=== PATIENT | male | born 1955 | race Caucasian/White ===

== ENCOUNTER 2020-12-24 09:58 | Outpatient (CLI) | payer BC, SELFPAY ==
[2020-12-24 10:28] LABS: Hemoglobin 14.2 g/dL (14.0-18.0); Mean Corpuscular Hemoglobin 31.6 pg (26-34); Mean Corpuscular Volume 95.8 fl (80-100); Mean Platelet Volume 8.5 fl (7.4-10.4); Platelet Count Result 318 k/mm3 (150-375); Red Blood Count 4.49 M/mm3 (4.6-6.20); Red Cell Distribution Width 13.9 % (11.5-14.5); White Blood Count 10.8 K/mm3 (4.5-10.0)
[2020-12-24 12:09] LABS: Alanine Aminotransferase 16 U/L (4-50); Albumin Level 4.6 g/dL (3.5-5.1); Alkaline Phosphatase 55 U/L (38-126); Anion Gap 11 mmol/L (8-16); Aspartate Amino Transferase 28 U/L (17-59); Bilirubin,Total 0.5 mg/dL (0.2-1.3); Blood Urea Nitrogen 23 mg/dL (9-20); Calcium 9.5 mg/dL (8.4-10.2); Carbon Dioxide 26 mmol/L (22-30); Chloride 103 mmol/L (98-107); Cholesterol 171 mg/dL (0-200); Estimated Glomerular Filt Rate > 60; Glucose 133 mg/dL (75-110); HDL Direct 69 mg/dL; Potassium 4.9 mmol/L (3.4-5.0); Sodium 140 mmol/L (137-145); Triglycerides 112 mg/dL (<150)
[2020-12-24 12:27] LABS: LDL Cholesterol Direct 80 mg/dL
[2020-12-24 12:41] LABS: Prostate Specific Antigen 1.7 ng/mL (< OR = 4.0)
[2020-12-24 13:57] LABS: Hemoglobin A1C 5.7 % (<5.7)
== END 2020-12-24 09:59 | disposition home or self-care (01) ==
LOC: ANHLAB 10:00
PROVIDERS: PCP Nurse Practitioner Family; Visit Provider Nurse Practitioner Family
DX: Z12.5 Encounter for screening for malignant neoplasm of prostate (principal); E78.5 Hyperlipidemia, unspecified; R73.01 Impaired fasting glucose; I10 Essential (primary) hypertension
CPT/HCPCS: 36415; 80053; 80061; 83036; 84153; 85027; G0103

== ENCOUNTER 2021-01-09 15:50 | Outpatient (CLI) | payer BC, SELFPAY ==
--- NOTE | ~2021-01-09 | US_ITS ---
EXAMINATION: US scrotum doppler DATE: 01/09/2021 16:38 INDICATION: Right scrotal swelling. TECHNIQUE: Grayscale and Doppler ultrasound images of the testes were obtained. COMPARISON: None. FINDINGS: The right testis measures 4.9 x 3.1 x 2.4 cm. The left testis measures 4.8 x 3.2 x 2.4 cm. There is normal vascular flow to both testes. The right epididymis is normal with normal vascular charlie w. The left epididymis contains a 14 mm cyst. There is a large right hydrocele. There is a small left hydrocele. There is no varicocele. IMPRESSION: 1. Large right hydrocele. Small left hydrocele. Reviewed, dictated and finalized at location A. CENTER RN
--- NOTE | ~2021-01-09 | CT_ITS ---
EXAMINATION: CT abdomen pelvis wo/w con DATE: 01/09/2021 17:07 INDICATION: Gross hematuria TECHNIQUE: Computed tomography (CT) of the abdomen and pelvis was performed without and subsequently with 130 cc Omnipaque 350 intravenous contrast. Automated exposure control and iterative reconstructi on technique were employed. Exam dose: 2591.45 mGy-cm total exam DLP. COMPARISON: None. FINDINGS: The lung bases are clear of infiltrate or consolidation. Heart size is mildly enlarged.. There is coronary artery calcification. No pericardial or pleural eff usion. The liver, gallbladder, spleen, pancreas and bile ducts and pancreatic duct appear normal. Normal morphology of the adrenal glands. Nonspecific bilateral perinephric fat stranding. No renal space occupying mass lesion or filling defect of the renal collecting systems or ureters is evident. No filling defect of the bladder lumen is detected. No bladder wall thickening is noted. The noncontrast examination reveals no urinary tract calculus or hydroureteronephrosis. The prostate gland and seminal vesicles appear unremarkable. Normal appendix. There are occasional diverticula of the left colon; no CT evidence of diverticulitis . No bowel obstruction, bowel wall thickening, pneumatosis or pneumoperitoneum. Bilateral fat-containing inguinal hernias. There are large right and smaller left hydroceles. Severe degenerative disc disease throughout the lumbar and lumbosacral spine. Prominent degenerative changes at the apophyseal joints. Prominent degenerative spurring of the lower thoracic spine. IMPRESSION: Diverticulosis of the colon; no CT evidence of diverticulitis Bilateral fat-containing inguinal hernias Bilateral hydroceles Prominent degenerative changes of the thoracic and lumbar spine Reviewed, dictated and finalized at Location A. Reviewed, dictated and finalized at location A. [employer]
== END 2021-01-09 15:51 | disposition home or self-care (01) ==
LOC: ANHIMG 15:51
PROVIDERS: PCP Nurse Practitioner Family; Visit Provider Nurse Practitioner Adult Health
DX: N50.89 Other specified disorders of the male genital organs (principal); N43.3 Hydrocele, unspecified; K57.90 Diverticulosis of intestine, part unspecified, without perforation or abscess without bleeding; K40.20 Bilateral inguinal hernia, without obstruction or gangrene, not specified as recurrent
CPT/HCPCS: 74178; 76870; 93976; Q9967

== ENCOUNTER 2021-04-06 08:16 | Outpatient (CLI) | payer BC, SELFPAY ==
--- NOTE | 2021-04-06 08:30 | ECG_ITS ---
Measurements Intervals [place] Rate: 83 P: 3 MI: 133 QRS: -34 QRSD: 106 T: 7 QT: 349 QTc: 410 Interpretive Statements SINUS RHYTHM VENTRICULAR PREMATURE COMPLEX LEFT AXIS DEVIATION BORDERLINE R WAVE PROGRESSION, ANTERIOR LEADS BORDERLINE T WAVE ABNORMALITY- INFERIOR LEADS BORDERLINE ECG Electronically Signed On 04-06-2021 10:28:49 CDT by Polo Pineda D.O.
[2021-04-06 09:01] LABS: Anion Gap 9 mmol/L (8-16); Blood Urea Nitrogen 19 mg/dL (9-20); Calcium 9.6 mg/dL (8.4-10.2); Carbon Dioxide 26 mmol/L (22-30); Chloride 101 mmol/L (98-107); Estimated Glomerular Filt Rate > 60; Glucose 139 mg/dL (75-110); Potassium 4.1 mmol/L (3.4-5.0); Sodium 136 mmol/L (137-145)
== END 2021-04-06 08:17 | disposition home or self-care (01) ==
LOC: ANHSURGERY 08:20
PROVIDERS: Anesthesiology; PCP Nurse Practitioner Family; Visit Provider Urology
DX: Z01.818 Encounter for other preprocedural examination (principal); I10 Essential (primary) hypertension
CPT/HCPCS: 36415; 80048; 93005

== ENCOUNTER → 2021-04-10 02:04 | Outpatient (CLI) | payer BC, SELFPAY ==
[2021-04-12 13:00] LABS: SARS-CoV-2 RNA PCR Negative
== END ==
PROVIDERS: PCP Nurse Practitioner Family; Visit Provider Urology
DX: Z01.812 Encounter for preprocedural laboratory examination (principal); Z20.822 Contact with and (suspected) exposure to COVID-19
CPT/HCPCS: C9803; U0003; U0005

== ENCOUNTER 2021-04-13 00:13 | Day surgery (SDC) | payer BC, SELFPAY ==
[2021-04-03 14:36] VITALS: BMI 31.4
--- NOTE | 2021-04-10 07:52 | PM.HPGS ---
History of Present Illness History of Present Illness Consent: Risks, benefits, and alternatives have been discussed and questions answered. Patient agrees to proceed with procedure. Chief complaint: hydrocele, gross hematuria Narrative: Luis Armando Palma is a 65 year old male recently referred with an episode of transient scant painless gross hematuria and right scrotal swelling. CT scan and pelvis without contrast showed normal upper urinary tracts. Examination was consistent with a large right hydrocele. After discussion of options he has elected for hydrocelectomy and flexible cystoscopy. He is aware of the risk of this including, but not limited to, scrotal hematoma and recurrent hydrocele formation. Review of Systems Cardiovascular: Cardiovascular: Denies chest pain, Denies lightheadedness, Denies palpitations and Denies dyspnea Respiratory: Respiratory: Denies dyspnea Gastrointestinal: Gastrointestinal: Denies diarrhea, Denies nausea and Denies vomiting Genitourinary: Genitourinary: Denies hematuria and Denies dysuria Endocrine: Endocrine: Denies palpitations PMFSH Past Medical History Medical History Essential (primary) hypertension Mixed hyperlipidemia Normal colonoscopy (~04/24/18) Dr Hill, no polyps. Repeat in 10 yrs. Surgical History Surgical History History of knee replacement (~11/2017) Social History Social History Smoking status: Never smoker Alcohol intake: current Drinks per week: 12 Spiritual care concerns: No Meds Home Medications and Allergies Home Medications Medication Instructions Recorded Confirmed Type ascorbate calcium (vitamin C) 500 500 mg PO DAILY 03/03/20 04/03/21 History mg tablet aspirin 81 mg tablet,delayed 81 mg PO DAILY 03/03/20 04/03/21 History release multivit,Ca,min-iron 8 mg-folic 1 tablet PO .QD tablet 03/03/20 04/03/21 History acid 200 mcg-lycopene 600 mcg tablet potassium gluconate 595 mg (99 mg) 595 mg PO DAILY 03/03/20 04/03/21 History tablet vitamin B comp with C no.4 150 mg 1 tablet PO .QD tablet 03/03/20 04/03/21 History tablet vitamin B12 500 mcg-folic acid 400 1 tablet PO DAILY 03/03/20 04/03/21 History mcg tablet simvastatin 20 mg tablet See Rx Instructions .ROUTE 01/23/21 04/03/21 Rx .COMPLEX #30 tablet lisinopril 20 See Rx Instructions .ROUTE 03/27/21 04/03/21 Rx mg-hydrochlorothiazide 25 mg tablet .COMPLEX #90 tablet Allergies Allergy/AdvReac Type Severity Reaction Status Date / Time No Known Allergies Allergy Unverified 04/03/21 14:14 Exam Const: General: no acute distress Resp: Effort & Inspection: normal respiratory effort GI: Inspection: non-distended GI Palp: No abdominal tenderness and No Guarding due to palpation present (GI) Auscultation: normal bowel sounds : Scrotum: Hydrocele present (right) Assessment and Plan Assessment and plan (1) Hydrocele, right: Code(s): N43.3 - Hydrocele, unspecified Status: Acute (2) Hematuria: Qualifiers: Hematuria type: unspecified type Qualified Code(s): R31.9 - Hematuria, unspecified Code(s): R31.9 - Hematuria, unspecified Status: Acute Assessment and Plan: Flexible cystoscopy and right hydrocelectomy
--- NOTE | 2021-04-13 06:10 | WPDHPUPDATE1 ---
History and Physical Update Update Date/Time: 04/13/21 06:10 History and Physical has been reviewed, including an updated exam of the patient. There are NO changes in the patient's condition. Risks, benefits, and alternatives have been discussed and questions answered. Patient agrees to proceed with procedure.
[2021-04-13 09:19] VITALS: BP 164/85; PULSE 116; RESP 20; TEMP 36.1; O2SAT 96
[2021-04-13] MEDS: LACTATED RINGERS 1,000 ML 30 ML IV CONT (09:30)
--- NOTE | 2021-04-13 09:49 | P.PNAN_ITS ---
Anes - Initial Pre Proc Eval Procedure: Operation Date: 04/13/21 11:30 Proposed Procedures p Right Hydrocelectomy, - Wellington Ernst MD s Flexible Cystoscopy - Wellington Ernst MD Date/Time: 04/13/21 09:49 Surgeon: Wellington Ernst MD Pre Op Diagnosis: hydrocele, gross hematuria Patient Data Age: 65 Gender: M Height: 5 ft 7 in Weight: 94 kg Last Vital Signs Temp 97.0 F L 04/13/21 09:19 Pulse 116 H 04/13/21 09:19 Resp 20 04/13/21 09:19 BP 164/85 H 04/13/21 09:19 Pulse Ox 96 04/13/21 09:19 Allergies Allergy/AdvReac Type Severity Reaction Status Date / Time No Known Allergies Allergy Unverified 04/13/21 09:15 Home Medications Medication Instructions Recorded Confirmed Type ascorbate calcium (vitamin C) 500 500 mg PO DAILY 03/03/20 04/13/21 History mg tablet aspirin 81 mg tablet,delayed 81 mg PO DAILY 03/03/20 04/13/21 History release multivit,Ca,min-iron 8 mg-folic 1 tablet PO .QD tablet 03/03/20 04/13/21 History acid 200 mcg-lycopene 600 mcg tablet potassium gluconate 595 mg (99 mg) 595 mg PO DAILY 03/03/20 04/13/21 History tablet vitamin B comp with C no.4 150 mg 1 tablet PO .QD tablet 03/03/20 04/13/21 History tablet vitamin B12 500 mcg-folic acid 400 1 tablet PO DAILY 03/03/20 04/13/21 History mcg tablet simvastatin 20 mg tablet See Rx Instructions .ROUTE 01/23/21 04/13/21 Rx .COMPLEX #30 tablet lisinopril 20 See Rx Instructions .ROUTE 03/27/21 04/13/21 Rx mg-hydrochlorothiazide 25 mg tablet .COMPLEX #90 tablet Patient hx anesthesia problems: none Family hx anesthesia problems: none PMFSH Past Medical History Medical History Essential (primary) hypertension Mixed hyperlipidemia Normal colonoscopy (~04/24/18) Dr Hill, no polyps. Repeat in 10 yrs. Surgical History Surgical History (Updated 04/10/21 @ 08:51 by Luzmaria Duran NP) History of knee replacement (~11/2017) Hx of cystoscopy (~03/2021) Social History Social History Smoking status: Never smoker Alcohol intake: current Drinks per week: 12 Alcohol use details: beers Living arrangements: alone Spiritual care concerns: No Anes - Eval Final PreProcedure Day of Procedure 04/13/21 09:49 Patient weight: obese Heart: regular rate and rhythm Lungs: clear to auscultation Airway: Mallampati scale class III (poor dentition; states none are loose) Neurological: alert and oriented Last oral intake: >/= 8 hours ASA classification: III Emergent: no Anesthetic plan: proceed Anesthesia type and monitoring: general LMA and standard monitoring Informed Consent: The patient's anesthetic plan and its attendant risks and benefits were discussed with the patient/family/POA. Questions were solicited an d answers provided to the satisfaction of the patient/family/POA.
[2021-04-13] MEDS: ceFAZolin 2 GM/D5W 50 ML 2 GM/50 ML BAG IVPB (10:18)
[2021-04-13] MEDS: LIDO 1%/EPINEPHRINE 1:100,000 50 ML VIAL INFILTRATE (10:54)
[2021-04-13] MEDS: LIDOCAINE HCL 2% GEL UROJET 10 ML PKG MUCOUS MEM (10:54)
--- NOTE | 2021-04-13 11:01 | P.OP_ITS ---
Procedure Note - Detailed Date of procedure: 04/13/21 Pre-op diagnosis: Right hydrocele, gross hematuria Post-op diagnosis: same Procedure performed: 1. Right hydrocelectomy 2. Cystoscopy with urethral dilatation Description of procedure: The patient was brought to the operative suite where he was prepped and draped in routine sterile fashion while in a supine position after the uneventful induction of a general LMA anesthetic. An incision was made in the median raphe of the scrotum and dissection was carried into the right tunica vaginalis. Clear, straw-colored fluid was drained. The testicle was examined and found to be both visibly and palpably normal. The tunica was everted in a bottle-neck fashion using a running 4-0 chromic. The testicle was restore returned to an orthotopic positioned. The dartos muscle was closed wi th a running 4-0 chromic and the skin was likewise closed with a running 4-0 chromic. flexible cystoscopy was then undertaken with a 16 F flexible cystoscope. He has wide caliber stricture in the fossa navicularis and a 2nd, slightly more constricting stricture in the bulbous urethra. The bladder shows trabeculation. There is minimal lateral lobe hyperplasia of the prostate without a median lobe. Bladder mucosa without hyperemia. There is no intravesical foreign body or neoplasm. I dilated the urethra from 14-26 F with Josefina sounds. Estimated blood loss throughout this procedure was <10cccc . Patient tolerated the procedure well and was taken to the recovery room in good condition. Anesthesia: GLMA Surgeon: Wellington Ernst MD Commercial Driver'S License Driver: ELIUD Nevarez Estimated blood loss (mL): 5 Drains: No Packing: No Pathology: none sent Complications: No immediate complications Condition: stable Disposition: PACU
[2021-04-13 11:05] VITALS: BP 144/81; PULSE 97; RESP 16; TEMP 36.1; O2SAT 100
[2021-04-13 11:20] VITALS: BP 145/82; PULSE 95; RESP 17; O2SAT 97
[2021-04-13 11:35] VITALS: BP 140/80; PULSE 88; RESP 20; O2SAT 96
[2021-04-13 11:38] VITALS: BP 173/91; PULSE 91; RESP 20
[2021-04-13 12:20] VITALS: BP 153/92; PULSE 78; RESP 20
== END 2021-04-13 12:49 | disposition home or self-care (01) ==
PROVIDERS: PCP Nurse Practitioner Family; Visit Provider Urology
PROC: (CPT 55040; principal; 2021-04-13 11:30)
PROC: 0TJB8ZZ Inspection of Bladder, Via Natural or Artificial Opening Endoscopic (ICD-10-PCS; CPT 52000; 2021-04-13 11:30)
DX: N43.3 Hydrocele, unspecified (principal); N35.912 Unspecified bulbous urethral stricture, male; R31.0 Gross hematuria; N32.89 Other specified disorders of bladder; I10 Essential (primary) hypertension; E78.2 Mixed hyperlipidemia; E66.9 Obesity, unspecified; Z68.32 Body mass index [BMI] 32.0-32.9, adult
CPT/HCPCS: 55060; 52281; A9270; J0690; J1100; J2250; J2405; J2704; J3010; J7120

== ENCOUNTER 2021-09-11 11:07 | Outpatient (CLI) | payer MEDICARE, SELFPAY ==
[2021-09-11 11:49] LABS: Anion Gap 11 mmol/L (8-16); Blood Urea Nitrogen 21 mg/dL (9-20); Calcium 9.6 mg/dL (8.4-10.2); Carbon Dioxide 26 mmol/L (22-30); Chloride 100 mmol/L (98-107); Estimated Glomerular Filt Rate > 60; Glucose 128 mg/dL (65-110); Potassium 4.4 mmol/L (3.4-5.0); Sodium 137 mmol/L (137-145)
== END 2021-09-11 11:08 | disposition home or self-care (01) ==
LOC: ANHSURGERY 11:12
PROVIDERS: Anesthesiology; PCP Family Medicine; Visit Provider Urology
DX: Z01.818 Encounter for other preprocedural examination (principal); Z79.899 Other long term (current) drug therapy
CPT/HCPCS: 36415; 80048

== ENCOUNTER 2021-09-14 00:25 | Day surgery (SDC) | payer MEDICARE, SELFPAY ==
[2021-09-11 09:33] VITALS: BMI 31.7
[2021-09-14 06:10] VITALS: BP 160/85; PULSE 96; RESP 16; TEMP 37; O2SAT 99
[2021-09-14] MEDS: LACTATED RINGERS 1,000 ML 30 ML IV CONT (06:36)
--- NOTE | 2021-09-14 06:43 | WPDHPUPDATE1 ---
History and Physical Update Update Date/Time: 09/14/21 06:43 History and Physical has been reviewed, including an updated exam of the patient. There are NO changes in the patient's condition. Risks, benefits, and alternatives have been discussed and questions answered. Patient agrees to proceed with procedure.
--- NOTE | 2021-09-14 07:14 | P.PNAN_ITS ---
Anes - Initial Pre Proc Eval Procedure: Operation Date: 09/14/21 07:30 Proposed Procedures p Right Hydrocelectomy - Wellington Ernst MD Date/Time: 09/14/21 07:14 Surgeon: Wellington Ernst MD Pre Op Diagnosis: right hydrocele Patient Data Age: 66 Gender: M Height: 1.7 m Weight: 96.5 kg Last Vital Signs Temp 98.6 F 09/14/21 06:10 Pulse 96 09/14/21 06:10 Resp 16 09/14/21 06:10 BP 160/85 H 09/14/21 06:10 Pulse Ox 99 09/14/21 06:10 Allergies Allergy/AdvReac Type Severity Reaction Status Date / Time No Known Allergies Allergy Unverified 09/14/21 06:28 Home Medications Medication Instructions Recorded Confirmed Type ascorbate calcium (vitamin C) 500 500 mg PO DAILY 03/03/20 09/14/21 History mg tablet aspirin 81 mg tablet,delayed 81 mg PO DAILY 03/03/20 09/14/21 History release multivit,Ca,min-iron 8 mg-folic 1 tablet PO .QD tablet 03/03/20 09/14/21 History acid 200 mcg-lycopene 600 mcg tablet potassium gluconate 595 mg (99 mg) 595 mg PO DAILY 03/03/20 09/14/21 History tablet vitamin B comp with C no.4 150 mg 1 tablet PO .QD tablet 03/03/20 09/14/21 History tablet vitamin B12 500 mcg-folic acid 400 1 tablet PO DAILY 03/03/20 09/14/21 History mcg tablet simvastatin 20 mg tablet See Rx Instructions .ROUTE 05/29/21 09/14/21 Rx .COMPLEX #90 tablet lisinopril 20 1 tablet PO DAILY #90 tablet 06/19/21 09/14/21 Rx mg-hydrochlorothiazide 25 mg tablet Patient hx anesthesia problems: none Family hx anesthesia problems: none Results Review: All pre-operative results and documents have been reviewed as part of the pre-operative evaluation. [facility] Past Medical History Medical History Essential (primary) hypertension Mixed hyperlipidemia Normal colonoscopy (~04/24/18) Dr Hill, no polyps. Repeat in 10 yrs. Surgical History Surgical History (Updated 04/10/21 @ 08:51 by Luzmaria Duran NP) History of knee replacement (~11/2017) Hx of cystoscopy (~03/2021) Social History Social History Smoking status: Never smoker Second hand tobacco smoke exposure: No Alcohol intake: current Drinks per week: 12 Alcohol use details: beers Substance use: never Substance use type: does not use Living arrangements: alone Spiritual care concerns: No Anes - Eval Final PreProcedure Day of Procedure 09/14/21 07:14 Patient weight: obese Heart: regular rate and rhythm Lungs: clear to auscultation Airway: Mallampati scale class III Neurological: alert and oriented Last oral intake: >/= 8 hours ASA classification: III Emergent: no Anesthetic plan: proceed Anesthesia type and monitoring: general LMA and standard monitoring Results Review: All pre-operative results and documents have been reviewed as part of the pre-operative evaluation. Informed Consent: The patient's anesthetic plan and its attendant risks and benefits were discussed with the patient/family/POA. Questions were solicited and answers provided to the satisfaction of the patient/family/POA.
[2021-09-14] MEDS: ceFAZolin 2 GM/D5W 50 ML 2 GM/50 ML BAG IVPB (07:30)
--- NOTE | 2021-09-14 08:11 | W.PM.PROC2 ---
Procedure Note - Detailed Date of Procedure 09/14/21 Pre-op Diagnosis Recurrent right hydrocele Post-op Diagnosis same Procedure Performed Right hydrocelectomy Surgeon Wellington Ernst MD Anesthesia general Description of Procedure Patient brought to the office reveals prepped draped in routine sterile fashion while in the supine position. An incision is made in the median raphe of the scrotum are and dissection is carried into the right hemiscrotum. A large hemorrhagic fluid collection use drain. Right testicle was inspected and found to be inflamed but otherwise normal without palpable masses. I was able to open the tunica vaginalis widely but there was not enough to sherry in a bottle neck fashion. Copiously irrigated the right hemiscrotum in close the dartos with a running 3-0 chromic. Skin was likewise closed with a running 3-0 chromic. Patient was taken recovery room good condition. Estimated Blood Loss 0 Drains No Packing No Pathology none sent Complications No immediate complications Condition stable Disposition PACU
[2021-09-14] MEDS: LIDO 1%/EPINEPHRINE 1:100,000 50 ML VIAL 10 ML INFILTRATE (08:13)
[2021-09-14 08:25] VITALS: BP 152/83; PULSE 100; RESP 16; TEMP 36.8; O2SAT 100
[2021-09-14 08:40] VITALS: BP 158/78; PULSE 94; RESP 18; O2SAT 96
[2021-09-14 08:50] VITALS: BP 155/76; PULSE 89; RESP 16
== END 2021-09-14 09:35 | disposition home or self-care (01) ==
PROVIDERS: PCP Family Medicine; Visit Provider Urology
PROC: (CPT 55040; principal; 2021-09-14 07:30)
DX: N43.3 Hydrocele, unspecified (principal); I10 Essential (primary) hypertension; E78.5 Hyperlipidemia, unspecified; Z96.659 Presence of unspecified artificial knee joint
CPT/HCPCS: 55040; J0690; J1100; J2250; J2405; J2704; J3010; J7120

== ENCOUNTER 2023-01-05 09:46 | Outpatient (CLI) | payer MEDICARE, SELFPAY ==
[2023-01-05 10:08] LABS: Basophils Percent Auto 0.2 % (0.2-1.2); Eosinophils Absolute Auto 0.3 K/mm3 (0-0.3); Eosinophils Percent Auto 2.3 % (0-4.4); Hematocrit 44.1 % (42.0-52.0); Hemoglobin 14.7 g/dL (14.0-18.0); Immature Granulocyte Absolute 0.04 K/mm3 (0.00-0.031); Immature Granulocyte Percent A 0.4 % (0-0.5); Lymphocytes Absolute Auto 2.58 K/mm3 (0.9-3.2); Lymphocytes Percent Auto 23.3 % (18.3-44.2); Mean Corpuscular HGB Conc 33.3 g/dl (32-36); Mean Corpuscular Hemoglobin 32.2 pg (26-34); Mean Corpuscular Volume 96.5 fl (80-100); Mean Platelet Volume 8.6 fl (7.4-10.4); Monocytes Absolute Auto 0.6 K/mm3 (0.1-0.6); Monocytes Percent Auto 5.8 % (2.6-8.5); Neutrophils Absolute Auto 7.6 K/mm3 (1.3-6.7); Platelet Count Result 287 k/mm3 (150-375); Red Blood Count 4.57 M/mm3 (4.6-6.20); Red Cell Distribution Width 13.2 % (11.5-14.5); White Blood Count 11.1 K/mm3 (4.5-10.0)
[2023-01-05 10:16] LABS: Alanine Aminotransferase 20 U/L (6-50); Albumin Level 4.6 g/dL (3.5-5.1); Alkaline Phosphatase 60 U/L (38-126); Anion Gap 7 mmol/L (8-16); Aspartate Amino Transferase 23 U/L (17-59); Bilirubin,Total 0.4 mg/dL (0.2-1.3); Blood Urea Nitrogen 26 mg/dL (9-20); Calcium 9.2 mg/dL (8.4-10.2); Carbon Dioxide 24 mmol/L (22-30); Chloride 102 mmol/L (98-107); Cholesterol 197 mg/dL (0-200); Estimated Glomerular Filt Rate > 60; Glucose 140 mg/dL (65-110); HDL Direct 74 mg/dL; Potassium 4.4 mmol/L (3.4-5.0); Sodium 133 mmol/L (137-145); Triglycerides 167 mg/dL (<150)
[2023-01-05 10:27] LABS: LDL Cholesterol Direct 80 mg/dL
[2023-01-05 10:32] LABS: Hemoglobin A1C 5.8 % (<5.7)
== END 2023-01-05 09:47 | disposition home or self-care (01) ==
PROVIDERS: PCP Family Medicine; Visit Provider Nurse Practitioner
DX: E78.5 Hyperlipidemia, unspecified (principal); R73.03 Prediabetes; I10 Essential (primary) hypertension
CPT/HCPCS: 36415; 80053; 80061; 83036; 85025

== ENCOUNTER 2024-03-09 09:38 | Outpatient (CLI) | payer MEDICARE, SELFPAY ==
[2024-03-09 10:29] LABS: Basophils Percent Auto 0.3 % (0.2-1.2); Eosinophils Absolute Auto 0.2 K/mm3 (0-0.3); Eosinophils Percent Auto 1.7 % (0-4.4); Hematocrit 44.8 % (42.0-52.0); Hemoglobin 14.7 g/dL (14.0-18.0); Immature Granulocyte Absolute 0.03 K/mm3 (0.00-0.031); Immature Granulocyte Percent A 0.3 % (0-0.5); Lymphocytes Absolute Auto 2.37 K/mm3 (0.9-3.2); Lymphocytes Percent Auto 25.3 % (18.3-44.2); Mean Corpuscular HGB Conc 32.8 g/dl (32-36); Mean Corpuscular Hemoglobin 30.5 pg (26-34); Mean Corpuscular Volume 92.9 fl (80-100); Mean Platelet Volume 8.7 fl (7.4-10.4); Monocytes Absolute Auto 0.6 K/mm3 (0.1-0.6); Monocytes Percent Auto 5.9 % (2.6-8.5); Neutrophils Absolute Auto 6.2 K/mm3 (1.3-6.7); Neutrophils Percent Auto 66.5 % (45.5-73.1); Platelet Count Result 319 k/mm3 (150-375); Red Blood Count 4.82 M/mm3 (4.6-6.20); Red Cell Distribution Width 14.5 % (11.5-14.5); White Blood Count 9.4 K/mm3 (4.5-10.0)
[2024-03-09 10:48] LABS: Alanine Aminotransferase 16 U/L (6-50); Albumin Level 4.7 g/dL (3.5-5.1); Alkaline Phosphatase 73 U/L (38-126); Anion Gap 9 mmol/L (4-12); Aspartate Amino Transferase 26 U/L (17-59); Bilirubin,Total 0.5 mg/dL (0.2-1.3); Blood Urea Nitrogen 23 mg/dL (9-20); Calcium 9.9 mg/dL (8.4-10.2); Carbon Dioxide 23 mmol/L (22-30); Chloride 105 mmol/L (98-107); Cholesterol 206 mg/dL (0-200); Estimated Glomerular Filt Rate > 60; Glucose 124 mg/dL (65-110); HDL Direct 70 mg/dL; Potassium 4.2 mmol/L (3.4-5.0); Sodium 137 mmol/L (137-145); Triglycerides 277 mg/dL (<150)
[2024-03-09 10:59] LABS: LDL Cholesterol Direct 101 mg/dL
[2024-03-12 12:52] LABS: Vitamin D 1,25 (OH)2 Total 26 pg/mL (18-72); Vitamin D2 1,25 (OH)2 <8 pg/mL; Vitamin D3 1,25 (OH)2 26 pg/mL
== END 2024-03-09 09:39 | disposition home or self-care (01) ==
LOC: ANHLAB 09:42
PROVIDERS: PCP Family Medicine; Visit Provider Nurse Practitioner Family
DX: E55.9 Vitamin D deficiency, unspecified (principal); I10 Essential (primary) hypertension
CPT/HCPCS: 36415; 80053; 80061; 82652; 84443; 85025

== ENCOUNTER 2024-10-05 09:10 | Emergency (ER) | payer MEDICARE, SELFPAY ==
--- NOTE | ~2024-10-05 | CT_ITS ---
CLINICAL INDICATION: Lower abdominal pain COMPARISON: 01/07 TECHNIQUE: Multiple contiguous axial images of the abdomen and pelvis were performed following the ad ministration of with 100 mL Omnipaque-350 intravenous contrast The dose-length product (DLP) was 641.66 mGy-cm. Automated exposure control and iterative reconstruction technique were employed. FINDINGS/OBSERVATIONS: Visualized lower thorax: The bilateral lung bases are clear. The heart is of normal size, without pericardial effusion. Small hiatal hernia is present. Liver: The liver enhances homogeneously and is not enlarged. Gallbladder and biliary system: The gallbladder is minimally distended, and otherwise unremarkable. Pancreas: The pancreas enhances homogeneously without ductal dilatation. Spleen: The spleen enhances homogeneously and is not enlarged measuring 6cm in longitudinal dimension. Kidneys: The bilateral kidneys enhance symmetrically without hydronephrosis or renal calculi. Adrenal glands: Unremarkable. Gastrointestinal tract: Mural thickening within the sigmoid colon with multiple diverticula and surrounding inflammatory barton ge, findings suggesting acute/early diverticulitis for which clinical correlation is needed. Appendix: The air-filled appendix is of normal caliber (axial series, image 131) Vasculature: Calcified atherosclerotic disease without aneurysmal dilatation. Lymph nodes: No pathologically enlarged or morphologically suspicious lymph nodes within the retroperitoneum or at the root of the mesentery. Pelvic structures: The bladder is distended, and otherwise unremarkable. The prostate gland is not enlarged. Body wall and musculoskeletal: Small fat-containing umbilical hernia. Degenerative disease within the lower lumbar spine, at the level of L1/L2, L2/L3, L3/L4 and L4/L5. Os teophyte formation and disc space narrowing is present with moderate facet hypertrophy IMPRESSION: Findings consistent with acute/early diverticulitis of the sigmoid colon without drainable fluid aleisha ection or gross perforation. Reviewed, dictated and finalized at location A. [employer] [employer] IMPRESSION: Findings consistent with acute/early diverticulitis of the sigmoid colon withou t drainable fluid collection or gross perforation.
[2024-10-05 09:12] VITALS: BP 124/74; PULSE 108; RESP 17; TEMP 36.4; O2SAT 98
[2024-10-05 10:37] VITALS: BP 142/81; PULSE 111; RESP 18; O2SAT 99
[2024-10-05 10:52] LABS: Basophils Absolute Auto 0.1 K/mm3 (0.0-0.1); Basophils Percent Auto 0.2 % (0.2-1.2); Eosinophils Percent Auto 0.1 % (0-4.4); Hematocrit 37.8 % (42.0-52.0); Hemoglobin 12.3 g/dL (14.0-18.0); Immature Granulocyte Percent A 0.5 % (0-0.5); Lymphocytes Absolute Auto 2.79 K/mm3 (0.9-3.2); Lymphocytes Percent Auto 13.8 % (18.3-44.2); Mean Corpuscular HGB Conc 32.5 g/dl (32-36); Mean Corpuscular Hemoglobin 30.5 pg (26-34); Mean Corpuscular Volume 93.8 fl (80-100); Mean Platelet Volume 8.6 fl (7.4-10.4); Monocytes Absolute Auto 0.7 K/mm3 (0.1-0.6); Monocytes Percent Auto 3.4 % (2.6-8.5); Neutrophils Absolute Auto 16.6 K/mm3 (1.3-6.7); Platelet Count Result 678 k/mm3 (150-375); Red Blood Count 4.03 M/mm3 (4.6-6.20); Red Cell Distribution Width 12.7 % (11.5-14.5); White Blood Count 20.2 K/mm3 (4.5-10.0)
--- NOTE | 2024-10-05 11:07 | ED_ITS ---
HPI - Abdominal Pain General Chief Complaint: Abdominal Pain Stated Complaint: abdominal pain Time Seen by Provider: 10/05/24 10:33 Source: patient Mode of arrival: ambulatory Limitations: no limitations History of Present Illness HPI narrative: Patient is a 69-year-old male who presents the ED with report of lower abdominal pain. Patient reports intermittent issues with abdominal discomfort. He is on chronic antibiotic therapy for a previous complicated left shoulder infection and has had intermittent discomfort since being on this. States he was also started on amoxicillin and hydrocodone last week for a dental issue and this caused him some further stomach irritation. He then reports having worsen ing pain in his lower abdomen since yesterday afternoon. has been taking tramadol for a separate right shoulder issue but denies improvement of pain with this. Reports the feeling of constipation, states he is able to have a small bowel movement this morning. prior bowel movement was 3-4 days ago. Denies nausea, vomiting, urinary complaints, fevers. Related Data Home Medications Medication Instructions Recorded Confirmed ascorbate calcium (vitamin C) 500 500 mg PO DAILY 03/03/20 06/25/24 mg tablet aspirin 81 mg tablet,delayed 81 mg PO DAILY 03/03/20 06/25/24 release (Adult Low Dose Aspirin) multivit,Ca,min-iron 8 mg-folic 1 tablet PO .QD 03/03/20 06/25/24 acid 200 mcg-lycopene 600 mcg tablet (Centrum Men) potassium gluconate 595 mg (99 mg) 595 mg PO DAILY 03/03/20 06/25/24 tablet vitamin B comp with C no.4 150 mg 1 tablet PO .QD 03/03/20 06/25/24 tablet vitamin B12 500 mcg-folic acid 400 1 tablet PO DAILY 03/03/20 06/25/24 mcg tablet Allergies Allergy/AdvReac Type Severity Reaction Status Date / Time No Known Allergies Allergy Verified 10/05/24 09:17 Review of Systems Review of Systems: All systems reviewed & are unremarkable except as noted in HPI. All systems reviewed & are unremarkable except as noted in HPI and below PMFSH Past Medical History Medical History Essential (primary) hypertension Hydrocele, right Mixed hyperlipidemia Normal colonoscopy (~04/24/18) Dr Hill, no polyps. Repeat in 10 yrs. Shoulder pain Surgical History Surgical History H/O shoulder surgery History of knee replacement (~11/2017) Hx of cystoscopy (~03/2021) Social History Social History Social History: Single, lives alone. 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 HEAD: Normocephalic, atraumatic. RESPIRATORY: Airway patent, respirations nonlabored. Clear to auscultation bilaterally, no rales, rhonchi, wheezing. CARDIOVASCULAR: Tachycardic with regular rhythm without murmurs, rubs, or gallops. ABDOMINAL: Soft, diffuse tenderness throughout abdomen, worse throughout lower abdomen/periumbilical region. Mildly hypoactive BS. MUSCULOSKELETAL: Moves all extremities. No gross deformities. SKIN: Warm, dry, normal color. NEURO: A&O X3. Speech clear. Cranial nerves II-XII grossly intact. Steady gait. No ataxic movements. PSYCHIATRIC: Appropriate mood and affect. Normal interaction. Course Vital Signs Vital signs: Vital Signs Temperature 97.5 F L 10/05/24 09:12 Pulse Rate 108 H 10/05/24 09:12 Respiratory Rate 17 10/05/24 09:12 Blood Pressure 124/74 10/05/24 09:12 Pulse Oximetry 98 10/05/24 09:12 Oxygen Delivery Room Air 10/05/24 09:12 Temperature 97.7 F 10/05/24 14:36 Pulse Rate 89 10/05/24 14:36 Respiratory Rate 16 10/05/24 14:36 Blood Pressure 132/78 10/05/24 14:36 Pulse Oximetry 99 10/05/24 14:36 Oxygen Delivery Room Air 10/05/24 09:12 MDM - Abdominal Pain MDM Narrative Medical decision making narrative: patient presented to ED with lower abdominal pain, sensation of constipation. Patient tachycardic upon arrival. Afebrile. In no acute distress. CBC with white blood cell count of 20.0. Neutrophil predominance. No bandemia. Possible hemoconcentration. Fluids ongoing. CMP unremarkable. UA without signs of infection. Does show 1+ ketones. Patient given fluids in the ED. CT scan of abdomen/ pelvis was obtained and showing early/acute diverticulitis. No perf or abscess. Discussed lab and imaging findings with patient. He is feeling better with supportive therapy. Given leukocytosis, did feel potentially reasonable to admi t for IV antibiotics. Discussed discharge home with antibiotics versus admission. Utilize shared decision-making with patient. Patient would prefer to go home. Feel this is reasonable. His vital signs are stable. Tachycardia has resolved after fluids. Afebrile here. He is not meeting sepsis criteria at this time. Will discharge on Cipro / Flagyl. Patient has pain medication at home. Recommended close follow-up with PCP for further evaluation. Discussed very strict return precautions. He is in agreement with plan and feels comfortable going home. Discharged in stable condition. Medical Records Attestation: I reviewed the patient's medical records. Lab Data Attestation: I reviewed the patient's lab results. 10/05/24 10:37 10/05/24 13:40 Labs: Lab Results 10/05/24 10/05/24 10/05/24 Range/Units 10:36 10:37 13:30 WBC 20.2 H (4.5-10.0) K/mm3 RBC 4.03 L (4.6-6.20) M/mm3 Hgb 12.3 L (14.0-18.0) g/dL Hct 37.8 L (42.0-52.0) % MCV 93.8 (80-100) fl MCH 30.5 (26-34) pg MCHC 32.5 (32-36) g/dl RDW 12.7 (11.5-14.5) % Plt Count 678 H D (150-375) k/mm3 MPV 8.6 (7.4-10.4) fl Immature Gran % (Auto) 0.5 (0-0.5) % Neut % (Auto) 82.0 H (45.5-73.1) % Lymph % (Auto) 13.8 L (18.3-44.2) % Carlton % (Auto) 3.4 (2.6-8.5) % Eos % (Auto) 0.1 (0-4.4) % Baso % (Auto) 0.2 (0.2-1.2) % Lymph # (Auto) 2.79 (0.9-3.2) K/mm3 Carlton # (Auto) 0.7 H (0.1-0.6) K/mm3 Eos # (Auto) 0.0 (0-0.3) K/mm3 Baso # (Auto) 0.1 (0.0-0.1) K/mm3 Abs Immat Gran (auto) 0.10 H (0.00-0.031) K/mm3 Absolute Neuts (auto) 16.6 H (1.3-6.7) K/mm3 Absolute Nucleated RBC 0.000 (0.0-0.012) K/mm3 Nucleated RBC % 0.0 (0.0-0.2) % Sodium 139 (137-145) mmol/L Potassium 4.0 (3.4-5.0) mmol/L Chloride 104 (98-107) mmol/L Carbon Dioxide 23 (22-30) mmol/L Anion Gap 12 (4-12) mmol/L BUN 30 H (9-20) mg/dL Creatinine 0.90 (0.7-1.3) mg/dL Estim Creat Clear Calc 71 ml/min Estimated GFR > 60 (59 - ) Glucose 111 H (65-110) mg/dL Calcium 9.2 (8.4-10.2) mg/dL Total Bilirubin 0.3 (0.2-1.3) mg/dL AST 28 (17-59) U/L ALT 16 (6-50) U/L Alkaline Phosphatase 75 (38-126) U/L Total Protein 8.0 (6.3-8.2) g/dL Albumin 3.9 (3.5-5.1) g/dL Lipase 130 (23-300) U/L Urine Color Yellow (Yellow) Urine Appearance Cloudy H (Clear) Urine pH 5.0 (5.0-9.0) Ur Specific [place] 1.026 (1.001-1.035) Urine Protein Trace (Negative) mg/dL Urine Glucose (UA) Negative (Negative) mg/dL Urine Ketones 1+ H (Negative) mg/dL Ur Blood (Man) Negative (Negative) Urine Nitrate Negative (Negative) Urine Bilirubin Negative (Negative) Urine Urobilinogen 0.2 (<2.0) mg/dL Add Ur Microanalysis Reviewed Leukocyte Esterase Rfl Negative (Negative) NONA/UL Urine RBC 0-2 (0-2) /hpf Urine WBC 0-5 (0-3) /hpf Ur Squamous Epith Cells Occasional (Few) /hpf Urine Bacteria None seen /hpf Urine Casts >20 Hyaline Casts Present (None) /lpf 10/05/24 Range/Units 13:40 WBC (4.5-10.0) K/mm3 RBC (4.6-6.20) M/mm3 Hgb (14.0-18.0) g/dL Hct (42.0-52.0) % MCV (80-100) fl MCH (26-34) pg MCHC (32-36) g/dl RDW (11.5-14.5) % Plt Count (150-375) k/mm3 MPV (7.4-10.4) fl Immature Gran % (Auto) (0-0.5) % Neut % (Auto) (45.5-73.1) % Lymph % (Auto) (18.3-44.2) % Carlton % (Auto) (2.6-8.5) % Eos % (Auto) (0-4.4) % Baso % (Auto) (0.2-1.2) % Lymph # (Auto) (0.9-3.2) K/mm3 Carlton # (Auto) (0.1-0.6) K/mm3 Eos # (Auto) (0-0.3) K/mm3 Baso # (Auto) (0.0-0.1) K/mm3 Abs Immat Gran (auto) (0.00-0.031) K/mm3 Absolute Neuts (auto) (1.3-6.7) K/mm3 Absolute Nucleated RBC (0.0-0.012) K/mm3 Nucleated RBC % (0.0-0.2) % Sodium (137-145) mmol/L Potassium (3.4-5.0) mmol/L Chloride (98-107) mmol/L Carbon Dioxide (22-30) mmol/L Anion Gap (4-12) mmol/L BUN (9-20) mg/dL Creatinine 1.00 (0.7-1.3) mg/dL Estim Creat Clear Calc 64 ml/min Estimated GFR > 60 (59 - ) Glucose (65-110) mg/dL Calcium (8.4-10.2) mg/dL Total Bilirubin (0.2-1.3) mg/dL AST (17-59) U/L ALT (6-50) U/L Alkaline Phosphatase (38-126) U/L Total Protein (6.3-8.2) g/dL Albumin (3.5-5.1) g/dL Lipase (23-300) U/L Urine Color (Yellow) Urine Appearance (Clear) Urine pH (5.0-9.0) Ur Specific [place] (1.001-1.035) Urine Protein (Negative) mg/dL Urine Glucose (UA) (Negative) mg/dL Urine Ketones (Negative) mg/dL Ur Blood (Man) (Negative) Urine Nitrate (Negative) Urine Bilirubin (Negative) Urine Urobilinogen (<2.0) mg/dL Add Ur Microanalysis Leukocyte Esterase Rfl (Negative) NONA/UL Urine RBC (0-2) /hpf Urine WBC (0-3) /hpf Ur Squamous Epith Cells (Few) /hpf Urine Bacteria /hpf Urine Casts Hyaline Casts (None) /lpf Imaging Data Attestation: I personally reviewed and interpreted this imaging study as follows: Radiologist's impression: ITS Impressions Abdomen/Pelvis CT 10/05/24 13:50 IMPRESSION: Findings consistent with acute/early diverticulitis of the sigmoid colon without drainable fluid collection or gross perforation. Discharge Plan Discharge Clinical Impression: Diverticulitis of sigmoid colon Patient Disposition: Home, Self-Care Condition: Stable Instructions: Antibiotic Form, Diverticulitis (ED), Diverticulitis Diet (ED) Additional Instructions: Take both antibiotics as prescribed. It is important you finish both courses. Stay hydrated. Continue Tylenol as needed for pain. Utilize your home hydrocodone as needed for more severe pain. Follow-up with your primary care doctor for further evaluation. Return to the ED if you experience worsening or severe abdominal pain, unable to keep down food or drink, persistent vomiting, rectal bleeding, dark black stools, fevers, or any other symptoms of concern. Prescriptions: New metronidazole 500 mg tablet 500 mg PO Q8H 7 Days Qty: 21 0RF ciprofloxacin HCl 500 mg tablet 500 mg PO Q12H 7 Days Qty: 14 0RF No Action diclofenac sodium 100 mg tablet extended release 24 hr 100 mg PO DAILY Qty: 30 3RF Centrum Men 8 mg iron- 200 mcg-600 mcg tablet 1 tablet PO .QD Hold Instructions: Resume on 09/20/21. aspirin [Adult Low Dose Aspirin] 81 mg tablet,delayed release (DR/EC) 81 mg PO DAILY Hold Instructions: Resume on 04/16/21. potassium gluconate 595 mg (99 mg) tablet 595 mg PO DAILY vitamin B comp with C no.4 150 mg tablet 1 tablet PO .QD vitamin [id number] acid 500-400 mcg tablet 1 tablet PO DAILY Hold Instructions: Resume on 09/20/21. Rx Instructions: administer with a meal ascorbate calcium (vitamin C) 500 mg tablet 500 mg PO DAILY simvastatin 20 mg tablet 20 mg PO DAILY Qty: 90 1RF lisinopril-hydrochlorothiazide 20-25 mg tablet 1 tablet PO DAILY Qty: 90 1RF Follow-up/Referrals: Stacey Gregory MD [Primary Care Provider] - Time of Disposition: 14:22
[2024-10-05 11:09] LABS: Add Urine Microscopic? YES; Appearance Urine Cloudy (Clear); Bacteria Urine None Seen /hpf; Bilirubin Urine Negative (Negative); Blood Urine Negative (Negative); Color Urine Yellow (Yellow); Glucose Urine UA Negative (Negative); Hyaline Casts Urine Present /lpf; Ketones Urine 1+ mg/dL (Negative); Leukocyte Esterase Ur Negative LEU/UL (Negative); Need Manual Microscopic Reviewed; Nitrate Urine Negative (Negative); Non Pathogenic Casts >20; Protein Urine Trace mg/dL (Negative); RBC Urine 0-2 /hpf (0-2); Specific Grav Ur 1.026 (1.001-1.035); Squamous Epithelial Cell Urine Occasional /hpf (Few); Urobilinogen Urine 0.2 mg/dL (<2.0); WBC Urine 0-5 /hpf (0-3)
[2024-10-05] MEDS: MORPHINE SULFATE (*CRX) 4 MG/ML INJ IV PUSH (11:31)
[2024-10-05] MEDS: SODIUM CHLORIDE 0.9% IV 1,000 ML 999 ML IV CONT (11:31)
[2024-10-05] MEDS: ONDANSETRON INJ 4 MG/2 ML VIAL IV PUSH (11:32)
[2024-10-05 13:42] LABS: Estimated CRCL calculation 64 ml/min; Estimated Glomerular Filt Rate > 60
[2024-10-05 13:43] VITALS: BP 125/72; PULSE 98; RESP 18; O2SAT 100
[2024-10-05 13:55] LABS: Alanine Aminotransferase 16 U/L (6-50); Albumin Level 3.9 g/dL (3.5-5.1); Alkaline Phosphatase 75 U/L (38-126); Anion Gap 12 mmol/L (4-12); Aspartate Amino Transferase 28 U/L (17-59); Bilirubin,Total 0.3 mg/dL (0.2-1.3); Blood Urea Nitrogen 30 mg/dL (9-20); Calcium 9.2 mg/dL (8.4-10.2); Carbon Dioxide 23 mmol/L (22-30); Chloride 104 mmol/L (98-107); Estimated CRCL calculation 71 ml/min; Estimated Glomerular Filt Rate > 60; Glucose 111 mg/dL (65-110); Lipase 130 U/L (23-300); Sodium 139 mmol/L (137-145)
[2024-10-05 14:36] VITALS: BP 132/78; PULSE 89; RESP 16; TEMP 36.5; O2SAT 99
== END 2024-10-05 14:37 | disposition home or self-care (01) ==
PROVIDERS: Emergency Medicine; Emergency Provider Physician Assistant; PCP Family Medicine
DX: K57.32 Diverticulitis of large intestine without perforation or abscess without bleeding (principal); I10 Essential (primary) hypertension; E78.2 Mixed hyperlipidemia; Z96.659 Presence of unspecified artificial knee joint; Z79.82 Long term (current) use of aspirin; Z79.2 Long term (current) use of antibiotics
CPT/HCPCS: 36415; 74177; 80053; 81001; 83690; 85025; 96361; 96374; 96375; 99284; J2270; J2405; J7030; Q9967

== ENCOUNTER 2025-01-19 14:46 | Outpatient (CLI) | payer MEDICARE, SELFPAY ==
[2025-01-19 16:00] LABS: Basophils Absolute Auto 0.1 K/mm3 (0.0-0.1); Basophils Percent Auto 0.3 % (0.2-1.2); Eosinophils Absolute Auto 0.3 K/mm3 (0-0.3); Hematocrit 37.2 % (42.0-52.0); Hemoglobin 11.7 g/dL (14.0-18.0); Immature Granulocyte Absolute 0.06 K/mm3 (0.00-0.031); Immature Granulocyte Percent A 0.4 % (0-0.5); Lymphocytes Percent Auto 19.7 % (18.3-44.2); Mean Corpuscular HGB Conc 31.5 g/dl (32-36); Mean Corpuscular Hemoglobin 27.5 pg (26-34); Mean Corpuscular Volume 87.3 fl (80-100); Mean Platelet Volume 8.2 fl (7.4-10.4); Monocytes Absolute Auto 0.7 K/mm3 (0.1-0.6); Monocytes Percent Auto 4.6 % (2.6-8.5); Neutrophils Absolute Auto 11.1 K/mm3 (1.3-6.7); Platelet Count Result 610 k/mm3 (150-375); Red Blood Count 4.26 M/mm3 (4.6-6.20); Red Cell Distribution Width 16.3 % (11.5-14.5); White Blood Count 15.2 K/mm3 (4.5-10.0)
[2025-01-19 17:11] LABS: Vitamin D 25 Hydroxy 46.3 ng/mL
[2025-01-19 17:15] LABS: Hemoglobin A1C 5.9 % (<5.7)
[2025-01-19 17:24] LABS: Thyroid Stimulating Hormone Reflex 0.852 uIU/mL (0.465-4.68)
[2025-01-19 22:20] LABS: Alanine Aminotransferase 51 U/L (6-50); Albumin Level 4.2 g/dL (3.5-5.1); Alkaline Phosphatase 175 U/L (38-126); Anion Gap 12 mmol/L (4-12); Aspartate Amino Transferase 39 U/L (17-59); Bilirubin,Total 0.5 mg/dL (0.2-1.3); Blood Urea Nitrogen 20 mg/dL (9-20); Calcium 10.2 mg/dL (8.4-10.2); Carbon Dioxide 27 mmol/L (22-30); Chloride 102 mmol/L (98-107); Cholesterol 169 mg/dL (0-200); Estimated Glomerular Filt Rate > 60; Glucose 122 mg/dL (65-110); HDL Direct 57 mg/dL; Potassium 3.4 mmol/L (3.4-5.0); Sodium 141 mmol/L (137-145); Triglycerides 124 mg/dL (<150)
[2025-01-19 22:31] LABS: LDL Cholesterol Direct 67 mg/dL
[2025-01-19 22:50] LABS: Prostate Specific Antigen 3.9 ng/mL (< OR = 4.0)
== END 2025-01-19 14:47 | disposition home or self-care (01) ==
LOC: ANHLAB 14:50
PROVIDERS: PCP Family Medicine; Visit Provider Nurse Practitioner Family
DX: E78.2 Mixed hyperlipidemia (principal); R73.03 Prediabetes; I10 Essential (primary) hypertension; E55.9 Vitamin D deficiency, unspecified; Z12.5 Encounter for screening for malignant neoplasm of prostate
CPT/HCPCS: 36415; 80053; 80061; 82306; 83036; 84153; 84443; 85025; G0103

== ENCOUNTER 2025-02-01 12:57 | Outpatient (CLI) | payer MEDICARE, SELFPAY ==
[2025-02-01 13:48] LABS: Basophils Percent Auto 0.3 % (0.2-1.2); Eosinophils Absolute Auto 0.2 K/mm3 (0-0.3); Eosinophils Percent Auto 2.3 % (0-4.4); Hematocrit 34.4 % (42.0-52.0); Hemoglobin 11.2 g/dL (14.0-18.0); Immature Granulocyte Absolute 0.02 K/mm3 (0.00-0.031); Immature Granulocyte Percent A 0.2 % (0-0.5); Lymphocytes Absolute Auto 2.36 K/mm3 (0.9-3.2); Lymphocytes Percent Auto 23.8 % (18.3-44.2); Mean Corpuscular HGB Conc 32.6 g/dl (32-36); Mean Corpuscular Hemoglobin 28.2 pg (26-34); Mean Corpuscular Volume 86.6 fl (80-100); Mean Platelet Volume 8.6 fl (7.4-10.4); Monocytes Absolute Auto 0.8 K/mm3 (0.1-0.6); Monocytes Percent Auto 7.8 % (2.6-8.5); Neutrophils Absolute Auto 6.5 K/mm3 (1.3-6.7); Neutrophils Percent Auto 65.6 % (45.5-73.1); Platelet Count Result 369 k/mm3 (150-375); Red Blood Count 3.97 M/mm3 (4.6-6.20); White Blood Count 9.9 K/mm3 (4.5-10.0)
--- OUTSIDE RECORDS SUMMARY | 2025-02-01 15:27 | XMS_ITS | Clinical Summary ---
Author Organization [facility] Address [facility]ly [facility] [place] [address] Care Team Providers Care Engineering Technical Analyst Name Role Phone Liliam Gregory MD Primary Care Provider Allergies No known active allergies Medications simvastatin (ZOCOR) 20 mg tabletIndicatio ns:hyperlipidem ia Take 1 tablet (20 mg total) by mouth nightly 3 Active lisinopril-hydr oCHLOROthiazide (ZESTORETIC) 20-25 mg per tabletIndicatio ns:hypertension Take 1 tablet by mouth every morning 3 Active POTASSIUM ORALIndications :supplement Take 1 tablet by mouth every morning Active cholecalciferol , vitamin D3, (VITAMIN D3 ORAL)Indication s:supplement Take 1 tablet by mouth movie theater manager before breakfast Active oxyCODONE (ROXICODONE) 5 mg immediate release tabletIndicatio ns:Pain Take 1 tablet (5 mg total) by mouth every 4 (four) hours as needed for pain 20 tablet 5 Active acetaminophen 500 mg capsuleIndicati ons:Pain Take 2 capsules (1,000 mg total) by mouth 2 (two) times a day 56 tablet 5 Active aspirin 81 mg enteric coated tabletIndicatio ns:Deep Vein Thrombosis Prevention Take 1 tablet (81 mg total) by mouth 2 (two) times a day for 14 days 28 tablet 5 Active docusate sodium (COLACE) 100 mg capsuleIndicati ons:constipatio n Take 1 capsule (100 mg total) by mouth 2 (two) times a day 60 capsule 5 Active colchicine (COLCRYS) 0.6 mg tablet Take 2 tabs on first dose and then 1 tab q 4hrs as needed 6 tablet 5 Active melatonin 2.5 mg tablet,chewable Indications:sle ep Take 1 tablet by mouth nightly 01/08/20 Discontinu ed(Stop Taking at Discharge) cyanocobalamin, vitamin B-12, (VITAMIN B-12 ORAL)Indication s:supplement Take 1 tablet by mouth movie theater manager before breakfast 01/08/20 Discontinu ed(Stop Taking at Discharge) glucosamine sulfate (Glucosamine) 500 mg tabletIndicatio ns:supplement/ joint pain Take 1 tablet by mouth 2 (two) times a day 01/08/20 Discontinu ed(Stop Taking at Discharge) multivitamin capsuleIndicati ons:Vitamin Deficiency,supp lement/ Good Health Take 1 capsule by mouth movie theater manager before breakfast 01/08/20 Discontinu ed(Stop Taking at Discharge) diclofenac XR (VOTAREN XR) 100 mg 24 hr tabletIndicatio ns:pain Take 1 tablet (100 mg total) by mouth every morning 4 01/08/20 Discontinu ed(Stop Taking at Discharge) apple cider vinegar 300 mg tabletIndicatio ns:Otc/ Good Health Gut health Take 1 tablet by mouth 3 (three) times a day 01/08/20 Discontinu ed(Stop Taking at Discharge) ascorbic acid (VITAMIN C ORAL)Indication s:OTC/ Good Health Take 1 tablet by mouth every evening 01/08/20 Discontinu ed(Stop Taking at Discharge) acetaminophen ER (Tylenol 8 Hour) 650 mg 8 hr tabletIndicatio ns:Pain Take 1 tablet (650 mg total) by mouth every 8 (eight) hours as needed for pain 01/08/20 Discontinu ed(Stop Taking at Discharge) acetaminophen 500 mg capsuleIndicati ons:Pain Take 1 capsule (500 mg total) by mouth every 4 (four) hours as needed for mild pain (pain scale 1-4) 01/08/20 Discontinu ed(Stop Taking at Discharge) aspirin 81 mg enteric coated tabletIndicatio ns:prevention of thrombosis,OTC Take 1 tablet (81 mg total) by mouth every morning 01/08/20 Discontinu ed(Stop Taking at Discharge) docosahexaenoic acid/epa (FISH OIL ORAL)Indication s:OTC/ Heart health Take 1 tablet by mouth nightly 01/08/20 Discontinu ed(Stop Taking at Discharge) TURMERIC ORALIndications :OTC/ joint health Take 1 tablet by mouth 2 (two) times a day 01/08/20 Discontinu ed(Stop Taking at Discharge) traMADoL (ULTRAM) 50 mg tabletIndicatio ns:Right shoulder pain, unspecified chronicity Take 1 tablet (50 mg total) by mouth every 4 (four) hours as needed for pain for up to 10 days 40 tablet 5 01/08/20 25 Discontinu ed(Stop Taking at Discharge) HYDROcodone-roxana taminophen (NORCO) 5-325 mg per tablet TAKE 1 TABLET EVERY 6 HOURS FOR PAIN 4 01/08/20 Discontinu ed(Stop Taking at Discharge) cephalexin (KEFLEX) 500 mg capsuleIndicati ons:Other (complete free text reason below),surgical prophylaxis Take 1 capsule (500 mg total) by mouth every 6 (six) hours for 7 days 28 capsule 5 01/28/20 Active Problems Problem Noted Date Diagnosed Date Acute postoperative pain of right shoulder 01/08 S/P reverse total shoulder arthroplasty, right 0 01/07/2025 Osteoarthritis of right glenohumeral joint 07/27 Hypertension 10/31/2023 Hyperlipidemia 10/31/2023 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 Orthopaedic Surgery [facility] Advanced Medicine [address]th [place] [address] [place] [address] Ariel Pollard MD Status post reverse arthroplasty of right shoulder (Primary Dx) 01/20/2025 12:15 PM MAINTENANCE AND ENGINEERING MANAGER - 01/20/2025 11:59 PM MAINTENANCE AND ENGINEERING MANAGER Hospital Encounter [facility] [address] [place] [address] Ariel Pollard MD Status post reverse arthroplasty of right shoulder Discharge Disposition: Discharge to home or self care 01/20/2025 Orders Only [facility] Orthopaedic Surgery [address] [facility] Advanced Medicine [address]th [place] [address] [place] [address] Ariel Pollard MD 01/19/2025 Telephone [facility] Orthopaedic Surgery [address] [facility] 2[address] Floor [address] [place] [address] Ariel Pollard MD 01/13/2025 Telephone [facility] Orthopa[facility] [address] [facility] Advanced [facility] 12th [place] [address] [place] [address] Arile Pollard MD 01/13/2025 Orders Only [facility] Orthopaedic Surgery [address] [facility] 12th [place] [address] [place] [address] Ariel Pollard MD 01/10/2025 Telephone [facility] Anesthesia 1 [place] [address] Giuliano Newby MD 01/09/2025 Telephone [facility] Anesthesia 1 [place] [address] Giuliano Newby MD 01/07/2025 1:25 PM MAINTENANCE AND ENGINEERING MANAGER - 01/07/2025 4:20 PM MAINTENANCE AND ENGINEERING MANAGER Surgery [facility] Operating Room 1 [place] [address] Ariel Pollard MD Right reverse shoulder arthroplasty 01/07/2025 1:25 PM MAINTENANCE AND ENGINEERING MANAGER Anesthesia Event [facility] Operating Room [address] [place] [address] Joaquín Zelaya MD Thomas, Karen D., NP 01/07/2025 10:44 AM MAINTENANCE AND ENGINEERING MANAGER - 01/08/2025 11:35 AM MAINTENANCE AND ENGINEERING MANAGER Hospital Encounter [facility] [address] [place] [address] Ariel Pollard MD Osteoarthritis of right glenohumeral joint (Primary Dx); Acute postoperative pain of right shoulder Discharge Disposition: Discharge to home or self care 12/31/2024 1:28 PM MAINTENANCE AND ENGINEERING MANAGER - 12/31/2024 11:59 PM MAINTENANCE AND ENGINEERING MANAGER Hospital Encounter [facility] ([facility]) [address] [place] [address] Ariel Pollard MD Primary osteoarthritis of shoulders, bilateral Discharge Disposition: Discharge to home or self care 12/31/2024 1:00 PM MAINTENANCE AND ENGINEERING MANAGER Pre-Admission Testing [facility] Center for Preoperative Assessment and Planning [place] [facility] ([facility]) [address] [place] [address] Preoperative testing (Primary Dx) 12/23/2024 Orders Only [facility] Orthopa[facility] Surgery [address] [place] [address] Advanced Medicine 12th [place] [address] [place] [address] Ariel Pollard MD Primary osteoarthritis of shoulders, bilateral (Primary Dx) from Last 3 Months Surgical History Surgery Date Site/Laterality Comments KNEE SURGERY 11/18/2017 - 11/17/2018 Left HYDROCELE EXCISION / REPAIR 11/18/2021 - 11/17/2022 Righ t TOTAL SHOULDER ARTHROPLASTY 10/03/2023 Left IR PICC LINE PLACEMENT > 5 YEARS 11/01/2023 N/A INCISION AND DRAINAGE Medical History Medical History Date Comments HTN (hypertension) Hyperlipidemia OA (osteoarthritis) Family History Medical History Relation Name Comments Valvular heart disease Brother Deep vein thrombosis Father Heart attack Father Transient ischemic attack Mother Anesthesia problems Neg Hx Malig Hyperthermia Neg Hx Pseudochol deficiency Neg Hx Relation Name Status Comments Brother Father Mother Social History Tobacco Use Types Packs/Day Years Used Date Smoking Tobacco: Never Passive Smoke Exposure: Past Smokeless Tobacco: Never Tobacco Cessation:Counseling Given: Not Answered AUDIT-C Answer Date Recorded Q1: How often do you have a drink containing alc ohol? 2-3 times a week 01/07/2025 Q2: How many drinks containi ng alcohol do you have on a typical day when you are drinking? 3 or 4 01/07/2025 Q3: How often do you have si x or more drinks on one occasion? Never 01/07/2025 Personal Safety Answer Date Recorded Have you ever been in or are you currently in a harmful physical or emotional relationship or is someone making you feel afraid or unsafe? Denies 01/07/2025 Sex and Gender Information Value Date Recorded Sex Assigned at Not on file Legal Sex Male 1:20 PM CDT Gender Identity Not on file Sexual Orientation Not on file Obstetrics History Last Filed Vital Signs Vital Sign Reading Time Taken Comments Blood Pressure 124/65 01/08/2025 7:21 AM MAINTENANCE AND ENGINEERING MANAGER Pulse 82 01/08/2025 7:21 AM MAINTENANCE AND ENGINEERING MANAGER Temperature 36.6 C (97.8 F) 01/08/2025 7:21 AM MAINTENANCE AND ENGINEERING MANAGER Respiratory Rate 18 01/08/2025 7:21 AM MAINTENANCE AND ENGINEERING MANAGER Oxygen Saturation 98% 01/08/2025 7:21 AM MAINTENANCE AND ENGINEERING MANAGER Inhaled Oxygen Concentration - - Weight 80.3 kg (177 lb) 01/07/2025 11:16 AM MAINTENANCE AND ENGINEERING MANAGER Height 162.6 cm (5' 4 ) 12/31/2024 12:39 PM MAINTENANCE AND ENGINEERING MANAGER Body Mass Index 30.38 12/31/2024 12:39 PM MAINTENANCE AND ENGINEERING MANAGER Plan of Treatment Health Maintenance Due Date Last Done Comments Colon Cancer Screening-Colonoscopy 1955 Depression Screening 1956 Hepatitis C Screening 1956 Prostate Cancer Screening-PSA 1956 Hepatitis B Screening 1974 Zoster Vaccine (1 of 2) 2006 Well Visit 65+ 2021 Pneumococcal vaccine 65+ (2 of 2 - PCV) 01/08/2023 01/08/2022 Covid-19 Vaccine ( season) 2024 10/27/2021, 01/28/2021, 12/31/2020 Fall Risk Assessment 01/08/2026 01/08/2025 DTaP/Tdap/Td Vaccine (2 - Td or Tdap) 12/19/203411/2024 Influenza Vaccine Completed 11/01/2024, , 09/16/2017 Medical Devices Implanted Type Area Radiation / Chemistry Technician Device Identifier Shelf Expiration Date Model / Serial / Lot [employer] Od25 Mm Full Wedge Augment Shoulder 15 D Baseplate Glenoid [id number] - [id number] - [id number] Implanted:Qty: 1 on 10/03/2023 by Ariel Pollard MD at [facility] Other - see comments Left: Shoulder [employer] 01/26/2028 [id number] / [id number] / [employer] Aequalis Perform 7mm Reverse Screw Bone Sterile Latex Free [id number] - [id number] - [id number] Implanted:Qty: 1 on 10/03/2023 by Ariel Pollard MD at [facility] Other - see comments Left: Shoulder [employer] 05/10/2028 [id number] / [id number] / [employer] Tornier Aequalis Perform 39mm Reverse Shoulder Standard Sphere Qvi466 - S0 - [id number] Implanted:Qty: 1 on 10/03/2023 by Ariel Pollard MD at [facility] Other - see comments Left: Shoulder [employer] 07/29/2027 [id number] / 0 / [id number] [employer] Stem Perform Sz 3 Plus Humeral Long Dwx3pl - [id number] - [id number] Implanted:Qty: 1 on 10/03/2023 by Ariel Pollard MD at [facility] Other - see comments Left: Shoulder [employer] [id number] / [id number] / [employer] Spacer Perform 9mm Humeral Sz 3/4 Ief614 - S0 - [id number] Implanted:Qty: 1 on 10/03/2023 by Ariel Pollard MD at [facility] Other - see comments Left: Shoulder [employer] 08/07/2027 [id number] / 0 / [id number] [employer] Insert Perform 10 Deg Ret [id number] - S0 - [id number] Implanted:Qty: 1 on 10/03/2023 by Ariel Pollard MD at [facility] Other - see comments Left: Shoulder [employer] 12/25/2027 [id number] / 0 / [id number] [employer] Insert Perform 10 Deg Ret [id number] - Sn/A - [id number] Implanted:Qty: 1 on 10/31/2023 by Ariel Pollard MD at [facility] Other - see comments Left: Shoulder [employer] [id number] 01/04/2028 [id number] / N/A / [id number] Description:Implant pause co mpleted prior to opening implant on sterile field [employer] Spacer Perform 9mm Humeral Sz 01/19 Xjz056 - Sn/A - [id number] Implanted:Qty: 1 on 10/31/2023 by Ariel Pollard MD at [facility] Other - see comments Left: Shoulder [employer] [id number] 05/08/2028 XFB835 / N/A / [id number] Description:Implant pause co mpleted [employer] Tornier Aequalis Perform 39mm Reverse Shoulder Standard Sphere Dwp328 - [id number] - [id number] Implanted:Qty: 1 on 10/31/2023 by Ariel Pollard MD at [facility] Other - see comments Left: Shoulder [employer] [id number] 07/15/2028 BFL459 / [id number] / Description:Implant pause co mpleted [employer] Aequalis Perform Reversed Od5 Mm L50 Mm Peripheral Glenoid Screw Baseplate Nonsterile Pao313 - S0 - [id number] Implanted:Qty: 1 on 10/03/2023 by Ariel Pollard MD at [facility] Screw Left: Shoulder [employer] [id number] / 0 / [employer] Aequalis Perform Reversed 5mm 38mm Peripheral Glenoid Screw Dce222 - S0 - [id number] Implanted:Qty: 1 on 10/03/2023 by Ariel Pollard MD at [facility] Screw Left: Shoulder [employer] [id number] / 0 / [employer] Aequalis Perform Reversed 5mm 34mm Peripheral Glenoid Screw Gtk576 - [id number] Implanted:Qty: 2 on 10/31/2023 by Ariel Pollard MD at [facility] Screw Left: Shoulder [employer] RVE001 / / Description:From instrument set [employer] Aequalis Perform Reversed Od5 Mm L54 Mm Peripheral Glenoid Screw Baseplate Nonsterile Xkh832 - [id number] Implanted:Qty: 1 on 10/31/2023 by Ariel Pollard MD at [facility] Screw Left: Shoulder [employer] OBW795 / / Description:From instrument set Knee Replacement Left: Knee [employer] Aequalis Perform Reversed 5mm 26mm Peripheral Glenoid Screw Yoo955 - S0 - [id number] Implanted:Qty: 1 on 10/03/2023 by Ariel Pollard MD at [facility] Left: Shoulder [employer] GNU284 / 0 / [employer] Od25 Mm Full Wedge Augment Shoulder 15 D Baseplate Glenoid Ffr184 - [id number] - [id number] Implanted:Qty: 1 on 01/07/2025 by Ariel Pollard MD at [facility] Right: Shoulder [employer] 10/08/2029 XDV694 / [id number] / [employer] Aequalis Perform Reversed Od6.5 Mm L30 Mm Central Glenoid Screw Baseplate Nonsterile Ecx027 - [id number] Implanted:Qty: 1 on 01/07/2025 by Ariel Pollard MD at [facility] Right: Shoulder [employer] NRZ434 / / [employer] Aequalis Perform Reversed 5mm 34mm Peripheral Glenoid Screw Wcy958 - [id number] Implanted:Qty: 2 on 01/07/2025 by Ariel Pollard MD at [facility] Right: Shoulder [employer] EPZ329 / / [employer] Tornier Aequalis Perform 39mm Reverse Shoulder Standard Sphere Qnz221 - [id number] - [id number] Implanted:Qty: 1 on 01/07/2025 by Ariel Pollard MD at [facility] Right: Shoulder [employer] 07/21/2029 EPR157 / [id number] / [employer] Insert Perform 10 Deg Ret Dxx5168 Xdx4530 - [id number] - [id number] Implanted:Qty: 1 on 01/07/2025 by Ariel Pollard MD at [facility] Right: Shoulder [employer] 03/29/2028 TVF6453 / [id number] / [employer] Tray Stem Humeral Shoulder Reverse Long Tornier Perform [id number] Dwx3pl - [id number] - [id number] Implanted:Qty: 1 on 01/07/2025 by Ariel Pollard MD at [facility] Right: Shoulder [employer] 08/18/2029 DWX3PL / [id number] / Explanted Type Area Radiation / Chemistry Technician Device Identifier Shelf Expiration Date Model / Serial / Lot MicroEval Insert Perform 10 Deg Ret Rtz6980 Ixt1086 - [id number] - [id number] Explanted:Qty : 1 on 10/03/2023 by Ariel Pollard MD at [facility] Other - see comments Left: Shoulder [employer] [id number] 07/01/2025 [id number] / [id number] / [employer]Eval Aequalis Perform Reversed 5mm 34mm Peripheral Glenoid Screw Fqp571 - [id number] Explanted:Qty : 1 on 10/03/2023 at [facility] Left: Shoulder [employer] WOT113 / / Procedures Procedure Name Priority Date/Time Associated Diagnosis Comments XR SHOULDER RIGHT 2 OR MORE VIEWS Schedule Routine, Read Routine (OP Routine) 01/20/2025 12:30 PM MAINTENANCE AND ENGINEERING MANAGER Status post reverse arthroplasty of right shoulder EGFR Timed 01/08/2025 2:29 AM MAINTENANCE AND ENGINEERING MANAGER BASIC METABOLIC PANEL Timed 01/08/2025 2:29 AM MAINTENANCE AND ENGINEERING MANAGER HEMOGLOBIN AND HEMATOCRIT Timed 01/08/2025 2:29 AM MAINTENANCE AND ENGINEERING MANAGER XR SHOULDER RIGHT 2 OR MORE VIEWS IP Routine 01/07/2025 4:12 PM MAINTENANCE AND ENGINEERING MANAGER IA AN PROCEDURE PLACEHOLDER Routine 01/07/2025 1:49 PM MAINTENANCE AND ENGINEERING MANAGER IA AN ELECTIVE ENDOTRACHEAL AIRWAY Routine 01/07/2025 1:49 PM MAINTENANCE AND ENGINEERING MANAGER ARTHROPLASTY SHOULDER - REVERSE TOTAL 01/07/2025 1:24 PM MAINTENANCE AND ENGINEERING MANAGER Osteoarthritis of right glenohumeral joint Case Notes 2/3 per jens via case message/email, date is 01/07/25- RC12/18 email sent to confirm surgery date. MC11/18 PER JENS, JOSEPHINE MIKE- IA AN PROCEDURE PLACEHOLDER Routine 01/07/2025 1:16 PM MAINTENANCE AND ENGINEERING MANAGER IA AN PROCEDURE PLACEHOLDER Routine 01/07/2025 1:06 PM MAINTENANCE AND ENGINEERING MANAGER ANESTHESIA PERIPHERAL BLOCK Routine 01/07/2025 1:06 PM MAINTENANCE AND ENGINEERING MANAGER CT SHOULDER RIGHT WO CONTRAST Schedule Routine, Read Routine (OP Routine) 12/31/2024 1:50 PM MAINTENANCE AND ENGINEERING MANAGER Primary osteoarthritis of shoulders, bilateral EGFR Routine 12/31/2024 1:24 PM MAINTENANCE AND ENGINEERING MANAGER Preoperative testing DIFFERENTIAL AUTO Routine 12/31/2024 1:2 4 PM MAINTENANCE AND ENGINEERING MANAGER Preoperative testing BASIC METABOLIC PANEL Routine 12/31/2024 1:24 PM MAINTENANCE AND ENGINEERING MANAGER Preoperative testing CBC WITH AUTO DIFFERENTIAL Routine 12/31/2024 1:24 PM MAINTENANCE AND ENGINEERING MANAGER Preoperative testing from Last 3 Months Results * XR Shoulder Right 2+ View (01/20/2025 12:30 PM MAINTENANCE AND ENGINEERING MANAGER) Anatomical Region Laterality Modality Upper Extremities, Shoulder Right Comp uted Radiography 01/20/2025 12:3 7 PM MAINTENANCE AND ENGINEERING MANAGER Impressions 01/20/2025 12:37 PM MAINTENANCE AND ENGINEERING MANAGER 1. Reverse right total shoulder arthroplasty in unchanged, expected position. Electronically signed by: Yoel Grossman M.D. Narrative 01/20/2025 12:37 PM MAINTENANCE AND ENGINEERING MANAGER EXAMINATION: XR SHOULDER RIGHT 2 OR MORE VIEWS HISTORY: Right shoulder osteoarthritis FINDINGS: 4 view examination of the right shoulder is compared with a study from 01/07/2021. Reverse right total shoulder arthroplasty remains in unchanged, expected position. There is no fracture or component migration. There is a small amount of postoperative soft tissue gas. There is moderate acromioclavicular osteoarthritis. Procedure Note Yoel Grossman MD - 01/20/2025 EXAMINATION: XR SHOULDER RIGHT 2 OR MORE VIEWS HISTORY: Right shoulder osteoarthritis FINDINGS: 4 view examination of the right shoulder is compared with a study from 01/07/2021. Reverse right total shoulder arthroplasty remains in unchanged, expected position. There is no fracture or component migration. There is a small amount of postoperative soft tissue gas. There is moderate acromioclavicular osteoarthritis. IMPRESSION: 1. Reverse right total shoulder arthroplasty in unchanged, expected position. Electronically signed by: Yoel Grossman M.D. Ariel Pollard MD IMG XR PROCEDURES Final Re sult * eGFR (01/08/2025 2:29 AM MAINTENANCE AND ENGINEERING MANAGER) eGFR >90 >=60 mL/min/1. 73 m2 Comment: Interpretive Data Reference Interval Normal >/= 90 mL/min/1.73m2 Mildly decreased* 60 - 89 mL/min/1.73m2 Mildly to moderately decreased 45 - 59 mL/min/1.73m2 Moderately to severely decreased 30 - 44 mL/min/1.73m2 Severely decreased 15 - 29 mL/min/1.73m2 Kidney Failure < 15 mL/min/1.73m2 *Relative to young adult level Estimated glomerular filtration rate is determined by the 2020 CKD-EPI equation recommended by the National Kidney Foundation (A Unifying Approach to GFR Estimation: Recommendations of the NKF-ASK Task Force on Reassessing the Inclusion of Race in Diagnosing Kidney Disease, JASN 2020). The CKD-EPI equation should not be used for patients with unstable renal function and has not been validated in children and those over 70. Current interpretive data was last reviewed 2021. Blood 01/08/2025 2:29 AM MAINTENANCE AND ENGINEERING MANAGER 01/08/2025 2:38 AM MAINTENANCE AND ENGINEERING MANAGER us Johnnie Vela MD LAB BLOOD ORDERABLES Fi nal Result Performing Organization Address [facility] Co de Phone Number [facility] [place] [address] * (ABNORMAL) Hemoglobin and hematocrit (01/08/2025 2:29 AM MAINTENANCE AND ENGINEERING MANAGER) Pathologist [facility] Hgb 10.1(L) 13.0 - 17.5 g/dL Hct 31.1(L) 38.9 - 50.3 % [facility] Blood 01/08/2025 2:29 AM MAINTENANCE AND ENGINEERING MANAGER 01/08/2025 2:38 AM MAINTENANCE AND ENGINEERING MANAGER Narrative [facility] - 01/08/2025 2:49 AM MAINTENANCE AND ENGINEERING MANAGER change to CBC when needed Corinne Argenis Vela MD LAB BLOOD ORDERABLES Fi nal Result Performing Organization Address [facility] de Phone Number [facility] [place] [address] * (ABNORMAL) Basic metabolic panel (01/08/2025 2:29 AM MAINTENANCE AND ENGINEERING MANAGER) Pathologist [facility] Sodium 135 135 - 145 mmol/L Potassium, pl 4.6 3.3 - 4.9 mmol/L [facility] Chloride 101 97 - 110 mmol/L [facility] CO2 26 22 - 32 mmol/L [facility] Anion gap 8 2 - 15 mmol/L [facility] BUN 17 6 - 25 mg/dL [facility] Creatinine 0.91 0.80 - 1.30 mg/dL [facility] Glucose 178 70 - 199 mg/dL [facility] Comment: Interpretive Data Fasting glucose >/= 126 mg/dl is diagnostic for diabetes. Fasting is defined as no caloric intake for at least 8 hours. Fasting glucose between 100 mg/dl to 125 mg/dl is diagnostic of prediabetes. In a patient with classic symptoms of hyperglycemia or hyperglycemic crisis, a random glucose >/= 200 mg/dl is diagnostic for diabetes. In the absence of unequivocal hyperglycemia, results should be confirmed by repeat testing. The classification and Diagnosis of Diabetes Diabetes Care 2021; 46: S19-S40. Current interpretive data was last revised 2022. Calcium 8.4(L) 8.5 - 10.3 mg/dL [facility] Blood 01/08/2025 2:29 AM MAINTENANCE AND ENGINEERING MANAGER 01/08/2025 2:38 AM MAINTENANCE AND ENGINEERING MANAGER Narrative [place] - 01/08/2025 3:09 AM MAINTENANCE AND ENGINEERING MANAGER Daily us Johnnie Vela MD LAB BLOOD ORDERABLES Fi nal Result [facility] Department [place] [address] * XR Shoulder Right 2+ View (01/07/2025 4:12 PM MAINTENANCE AND ENGINEERING MANAGER) Anatomical Region Laterality Modality Upper Extremities, Shoulder Right [facility] 01/07/2025 4:42 PM MAINTENANCE AND ENGINEERING MANAGER Impressions 01/07/2025 4:43 PM MAINTENANCE AND ENGINEERING MANAGER 1. Interval right total reverse shoulder arthroplasty in expected position. Dictated by: Philip Hutchison M.D. The radiology attending physician has personally reviewed this study, and had reviewed and/or edited this written report and agrees with it. Electronically signed by: Efraín Moreno D.O. Narrative 01/07/2025 4:43 PM MAINTENANCE AND ENGINEERING MANAGER EXAMINATION: XR SHOULDER RIGHT 2 OR MORE VIEWS HISTORY: Postop right shoulder arthroplasty COMPARISON: Comparison is made to prior radiographs dated 06/30/2024. FINDINGS: No acute fracture. No dislocation. Interval right total reverse shoulder arthroplasty in expected position. No periprosthetic fracture. No osteolysis. Intra-articular and soft tissue gas which is an expected finding in the recent postoperative setting. Moderate right acromioclavicular joint osteoarthritis. Atherosclerotic vascular calcifications of the aortic arch noted. Procedure Note Efraín Moreno, - 01/07/2025 EXAMINATION: XR SHOULDER RIGHT 2 OR MORE VIEWS HISTORY: Postop right shoulder arthroplasty COMPARISON: Comparison is made to prior radiographs dated 06/30/2024. FINDINGS: No acute fracture. No dislocation. Interval right total reverse shoulder arthroplasty in expected position. No periprosthetic fracture. No osteolysis. Intra-articular and soft tissue gas which is an expected finding in the recent postoperative setting. Moderate right acromioclavicular joint osteoarthritis. Atherosclerotic vascular calcifications of the aortic arch noted. IMPRESSION: 1. Interval right total reverse shoulder arthroplasty in expected position. Dictated by: Philip Hutchison M.D. The radiology attending physician has personally reviewed this study, and had reviewed and/or edited this written report and agrees with it. Electronically signed by: Efraín Moreno D.O. Johnnie Vela MD IMG XR PROCEDURES Final Result * IA AN ELECTIVE ENDOTRACHEAL AIRWAY, IA AN PROCEDURE PLACEHOLDER (01/07/2025 1:49 PM MAINTENANCE AND ENGINEERING MANAGER) Patricia Rosenthal RN - 01/07/2025 1:49 PM MAINTENANCE AND ENGINEERING MANAGER Patricia Padilla RN 01/07/2025 1:51 PM Airway Patient location: OR Urgency: elective Indications for airway management: anesthesia Difficult airway: no Staff: Supervising provider: Joaquín Zelaya MD Placed by: Other staff: Patricia Padilla RN Emergent airway documentation: Risks and benefits discussed: yes Consent obtained: yes Consent given by: patient Airway prep: Preoxygenated: yes Patient position: sniffing Mask difficulty assessment: 1 - vent by mask Spontaneous ventilation during airway: absent Sedation level during airway: GA Final airway details: Final airway type: endotracheal airway Tube type: ETT ETT size: 7.5 mm Cuffed: yes Technique used for successful ETT placement: direct laryngoscopy Devices/Methods used in placement: stylet Insertion site: oral Blade type: Nu Blade size: 4 Cormack-Lehane (direct): grade IIb - view of arytenoids or posterior of glottis only Cuff volume: 8 mL Cuff inflated with: air ETT to lips: 22 cm Placement verified by: auscultation Airway secured with: silk tape Number of attempts: 1 Planned trial extubation: yes Result [facility] Joaquín Zelyaa MD ANESTHESIA ORDERABLE S Final Result * IA AN PROCEDURE PLACEHOLDER (01/07/2025 1:16 PM MAINTENANCE AND ENGINEERING MANAGER) Narrative Eduardo Clark MD - 01/07/2025 1:16 PM MAINTENANCE AND ENGINEERING MANAGER Eduardo Clark MD 01/07/2025 3:12 PM Peripheral Block Patient location during procedure: pre-op holding Start time: 01/07/2025 12:40 PM End time: 01/07/2025 12:46 PM Reason for block: post-op pain management per surgeon request Ultrasound image in chart or stored: yes Block type: single shot Laterality: right Block type: PECS II Staff: Supervising provider: Eduardo Clark MD Placed by: Resident: Ceci Small MD Procedure prep: Preprocedure checklist: patient identified, procedure contraindications assessed, site marked, procedure consent, surgical consent, IV checked, risks, benefits and alternatives discussed, monitors and equipment checked and timeout performed Patient position: head of bed elevated Procedure performed while patient: sedate with meaningful contact Monitoring: ECG, oximetry and blood pressure Supplemental O2: nasal cannula Prep solution: chlorhexidine/alcohol PPE: provider hat/mask, sterile gloves and sterile probe cover and gel Peripheral nerve block: Technique: ultrasound guided Needle type: insulated, short-bevel and echogenic Needle gauge: 22 G Needle length: 80 mm Injection assessment: injection made incrementally with constant monitoring, negative aspiration for heme, no paresthesias noted, normal resistance to injection and see flowsheet for medication details Assessment: Block success: full evaluation pending Events: patient tolerated procedure well with no complications us Joaquín Zelaya MD ANESTHESIA ORDERABLE S Final Result * BW IP ANE LDA PERIPHERAL NERVE CATHETER, IA AN PROCEDURE PLACEHOLDER (01/07/2025 1:06 PM MAINTENANCE AND ENGINEERING MANAGER) Narrative Eduardo Clark MD - 01/07/2025 1:06 PM MAINTENANCE AND ENGINEERING MANAGER Eduardo Clark MD 01/07/2025 3:12 PM Peripheral Block Patient location during procedure: pre-op holding Start time: 01/07/2025 12:06 PM End time: 01/07/2025 12:36 PM Reason for block: post-op pain management per surgeon request Ultrasound image in chart or stored: yes Block type: catheter continuous infusion Laterality: right Block type: brachial plexus - interscalene Staff: Supervising provider: Eduarod Clark MD Placed by: Resident: Ceci Small MD Procedure prep: Preprocedure checklist: patient identified, procedure contraindications assessed, site marked, procedure consent, surgical consent, IV checked, risks, benefits and alternatives discussed, monitors and equipment checked and timeout performed Patient position: supine and head of bed elevated Procedure performed while patient: sedate with meaningful contact Monitoring: ECG, oximetry and blood pressure Supplemental O2: nasal cannula Prep solution: chlorhexidine/alcohol PPE: provider hat/mask, sterile gloves, sterile drape and sterile probe cover and gel Peripheral nerve block: Technique: ultrasound guided Needle type: insulated, short-bevel and echogenic Needle gauge: 21 G ([employer] [id number]) Injection assessment: injection made incrementally with constant monitoring, local visualized surrounding nerve on ultrasound, negative aspiration for heme, no paresthesias noted, normal resistance to injection and see flowsheet for medication details Catheter: Catheter type: catheter over needle Other catheter type: Pajunk E-catheter Catheter over needle length: 51 Catheter placement details: catheter position confirmed by ultrasound, no aspiration of heme, negative test dose, benzoin, steri-strips and occlusive dressing applied Assessment: Block success: full evaluation pending Events: patient tolerated procedure well with no complications us Joaquín Zelaya MD ANESTHESIA ORDERABLE S Final Result * CT Shoulder Right WO Contrast (12/31/2024 1:50 PM MAINTENANCE AND ENGINEERING MANAGER) Anatomical Region Laterality Modality Upper Extremities Right Computed Tomog florecita 12/31/2024 3:10 PM MAINTENANCE AND ENGINEERING MANAGER Impressions 12/31/2024 4:35 PM MAINTENANCE AND ENGINEERING MANAGER Preoperative planning CT demonstrates severe right glenohumeral osteoarthritis with remodeling of the humeral head, moderate glenoid retroversion, and borderline glenoid bone stock. Dictated by: Efraín Moreno D.O. The radiology attending physician has personally reviewed this study, and had reviewed and/or edited this written report and agrees with it. Electronically signed by: Clay Pérez MD Narrative 12/31/2024 4:35 PM MAINTENANCE AND ENGINEERING MANAGER EXAMINATION: CT SHOULDER RIGHT WO CONTRAST HISTORY: Right glenohumeral OA, assess glenoid bone stock/ deformity COMPARISON: 09/06/2024 CT TECHNIQUE: Volumetric multidetector CT images of the right shoulder were obtained without IV contrast. Multiple planes were reconstructed for examination. FINDINGS: No acute fracture or dislocation. There is severe glenohumeral osteoarthritis with slight biconcave remodeling of the glenoid and flattening of the humeral head. Multiple loose bodies surround the glenohumeral joint. There is moderate acromioclavicular osteoarthritis. Note is made of a subacromial spur. There is approximately 2.0 cm of glenoid bone stock in the inferior margin of the base of the coracoid process. There is approximately 15 degrees of glenoid retroversion. There is moderate to severe supraspinatus muscle atrophy, moderate teres minor atrophy and otherwise mild atrophy of the infraspinatus and subscapularis. Heterotopic ossification within the subscapularis musculature, consistent with developing myositis ossificans. There are scattered atherosclerotic calcifications. The deltoid muscle bulk is relatively preserved with mild fatty infiltration. Limited evaluation of the upper right lung is without evidence of suspicious pulmonary nodule or consolidation. Severe degenerative disc disease at C6-C7 with otherwise mild to moderate multilevel thoracic degenerative disc disease. Procedure Note Clay Pérez MD - 12/31/2024 EXAMINATION: CT SHOULDER RIGHT WO CONTRAST HISTORY: Right glenohumeral OA, assess glenoid bone stock/ deformity COMPARISON: 09/06/2024 CT TECHNIQUE: Volumetric multidetector CT images of the right shoulder were obtained without IV contrast. Multiple planes were reconstructed for examination. FINDINGS: No acute fracture or dislocation. There is severe glenohumeral osteoarthritis with slight biconcave remodeling of the glenoid and flattening of the humeral head. Multiple loose bodies surround the glenohumeral joint. There is moderate acromioclavicular osteoarthritis. Note is made of a subacromial spur. There is approximately 2.0 cm of glenoid bone stock in the inferior margin of the base of the coracoid process. There is approximately 15 degrees of glenoid retroversion. There is moderate to severe supraspinatus muscle atrophy, moderate teres minor atrophy and otherwise mild atrophy of the infraspinatus and subscapularis. Heterotopic ossification within the subscapularis musculature, consistent with developing myositis ossificans. There are scattered atherosclerotic calcifications. The deltoid muscle bulk is relatively preserved with mild fatty infiltration. Limited evaluation of the upper right lung is without evidence of suspicious pulmonary nodule or consolidation. Severe degenerative disc disease at C6-C7 with otherwise mild to moderate multilevel thoracic degenerative disc disease. IMPRESSION: Preoperative planning CT demonstrates severe right glenohumeral osteoarthritis with remodeling of the humeral head, moderate glenoid retroversion, and borderline glenoid bone stock. Dictated by: Efraín Moreno D.O. The radiology attending physician has personally reviewed this study, and had reviewed and/or edited this written report and agrees with it. Electronically signed by: Clay Pérez MD us Ariel Pollard MD IMG CT PROCEDURES Final Re sult * eGFR (12/31/2024 1:24 PM MAINTENANCE AND ENGINEERING MANAGER) eGFR >90 >=60 mL/min/1. 73 m2 Comment: Interpretive Data Reference Interval Normal >/= 90 mL/min/1.73m2 Mildly decreased* 60 - 89 mL/min/1.73m2 Mildly to moderately decreased 45 - 59 mL/min/1.73m2 Moderately to severely decreased 30 - 44 mL/min/1.73m2 Severely decreased 15 - 29 mL/min/1.73m2 Kidney Failure < 15 mL/min/1.73m2 *Relative to young adult level Estimated glomerular filtration rate is determined by the 2020 CKD-EPI equation recommended by the National Kid[employer] (A Unifying Approach to GFR Estimation: Recommendations of the NKF-ASK Task Force on Reassessing the Inclusion of Race in Diagnosing Kidney Disease, JASN 2020). The CKD-EPI equation should not be used for patients with unstable renal function and has not been validated in children and those over 70. Current interpretive data was last reviewed 2021. Blood 12/31/2024 1:24 PM MAINTENANCE AND ENGINEERING MANAGER 12/31/2024 1:47 PM MAINTENANCE AND ENGINEERING MANAGER us Annmarie Orozco NP LAB BLOOD ORDERABLES Final Result [place] [facility] Department [place] [address] * Differential, auto (12/31/2024 1:24 PM MAINTENANCE AND ENGINEERING MANAGER) Neutrophil abs 5.6 1.5 - 6.5 K/cumm Imm gran abs 0.0 0.0 - 0.1 K/cumm [facility] Lymphocyte abs 2.4 0.8 - 3.3 K/cumm [facility] Monocyte abs 0.7 0.2 - 0.8 K/cumm [facility] Eosinophil abs 0.1 0.0 - 0.5 K/cumm [facility] Basophil abs 0.0 0.0 - 0.1 K/cumm [facility] Neutrophil pct 62.9 % [facility] Comment: Interpretive Data Percent cell count reference ranges are not reported, since discordance with absolute values may lead to misinterpretation of CBC data. Current Interpretive Data was last revised on 2018. Imm gran pct 0.2 % [facility] Comment: Interpretive Data Percent cell count reference ranges are not reported, since discordance with absolute values may lead to misinterpretation of CBC data. Current Interpretive Data was last revised on 2018. Lymphocyte pct 27.3 % [facility] Comment: Interpretive Data Percent cell count reference ranges are not reported, since discordance with absolute values may lead to misinterpretation of CBC data. Current Interpretive Data was last revised on 2018. Monocyte pct 8.0 % [facility] Comment: Interpretive Data Percent cell count reference ranges are not reported, since discordance with absolute values may lead to misinterpretation of CBC data. Current Interpretive Data was last revised on 2018. Eosinophil pct 1.4 % [facility] Comment: Interpretive Data Percent cell count reference ranges are not reported, since discordance with absolute values may lead to misinterpretation of CBC data. Current Interpretive Data was last revised on 2018. Basophil pct 0.2 % [facility] Comment: Interpretive Data Percent cell count reference ranges are not reported, since discordance with absolute values may lead to misinterpretation of CBC data. Current Interpretive Data was last revised on 2018. Blood 12/31/2024 1:24 PM MAINTENANCE AND ENGINEERING MANAGER 12/31/2024 1:47 PM MAINTENANCE AND ENGINEERING MANAGER us Annmarie Orozco NP LAB BLOOD ORDERABLES Final Result [facility] Department [place] [address] * (ABNORMAL) CBC with auto differential (12/31/2024 1:24 PM MAINTENANCE AND ENGINEERING MANAGER) [facility] WBC 8.9 3.8 - 9.9 K/cumm Hgb 12.6(L) 13.0 - 17.5 g/dL [facility] Hct 38.3(L) 38.9 - 50.3 % [facility] Plt 330 150 - 400 K/cumm [facility] MPV 8.8(L) 9.1 - 12.3 fL [facility] RBC 4.49 4.30 - 5.80 M/cumm [facility] MCV 85.3 81.3 - 96.4 fL [facility] MCH 28.1 27.1 - 33.3 pg [facility] MCHC 32.9 32.3 - 35.7 g/dL [facility] RDW CV 15.4(H) 11.1 - 14.9 % [facility] RDW SD 48.3(H) 35.7 - 48.1 fL [facility] NRBC abs 0.00 0.00 - 0.01 K/cumm [facility] Blood 12/31/2024 1:24 PM MAINTENANCE AND ENGINEERING MANAGER 12/31/2024 1:47 PM MAINTENANCE AND ENGINEERING MANAGER Annmarie Orozco NP LAB BLOOD ORDERABLES Final Result [facility] Department [place] [address] * (ABNORMAL) Basic metabolic panel (12/31/2024 1:24 PM MAINTENANCE AND ENGINEERING MANAGER) [facility] Sodium 137 135 - 145 mmol/L Potassium, pl 4.1 3.3 - 4.9 mmol/L [facility] Chloride 98 97 - 110 mmol/L [facility] CO2 27 22 - 32 mmol/L [facility] Anion gap 12 2 - 15 mmol/L [facility] BUN 12 6 - 25 mg/dL [facility] Creatinine 0.74(L) 0.80 - 1.30 mg/dL [facility] Glucose 107 70 - 199 mg/dL [facility] Comment: Interpretive Data Fasting glucose >/= 126 mg/dl is diagnostic for diabetes. Fasting is defined as no caloric intake for at least 8 hours. Fasting glucose between 100 mg/dl to 125 mg/dl is diagnostic of prediabetes. In a patient with classic symptoms of hyperglycemia or hyperglycemic crisis, a random glucose >/= 200 mg/dl is diagnostic for diabetes. In the absence of unequivocal hyperglycemia, results should be confirmed by repeat testing. The classification and Diagnosis of Diabetes Diabetes Care 202; 46: S19-S40. Current interpretive data was last revised 2022. Calcium 9.5 8.5 - 10.3 mg/dL [facility] Blood 12/31/2024 1:24 PM MAINTENANCE AND ENGINEERING MANAGER 12/31/2024 1:47 PM MAINTENANCE AND ENGINEERING MANAGER Annmarie Orozco NP LAB BLOOD ORDERABLES Final Result [facility] Department [place] [address] from Last 3 Months Insurance MEDICARE [facility] [employer] MEDICARE [facility] [employer] Advance Directives For more information, please contact: [phone] * Full Code (Latest Code Status on File) Date Activated Date Inactivated Comments 01/07/2025 7:21 PM 01/08/2025 3:40 PM * Full Code Date Activated Date Inactivated Comments 10/31/2023 7:44 PM 11/05/2023 7:58 PM * Full Code Date Activated Date Inactivated Comments 10/03/2023 7:50 PM 10/04/2023 4:31 PM Care Teams Engineering Technical Analyst Relationship Specialty Start Date End Date Liliam Gregory MD [id number] [place] [address] [place] [address] PCP - General Family Practice 03/01/23
--- OUTSIDE RECORDS SUMMARY | 2025-02-01 15:27 | XMS_ITS | Referral Summary ---
Author Organization [facility] Address [address] [place] [address] Care Team Providers Care Complaint Evaluation Officer Name Role Phone Liliam Gregory MD Primary Care Provider Encounters Date Type Department Care Team Description 01/20/2025 Orders Only [facility] Orthopaedic Surgery [address] [place] [address] 12th [place] [address] [place] [address] Ariel Pollard MD 01/20/2025 12:15 PM AMORTIZATION SCHEDULE CLERK - 01/20/2025 11:59 PM AMORTIZATION SCHEDULE CLERK Hospital Encounter [facility] Radiology [facility] [address] [place] [id number] Ariel Pollard MD Status post reverse arthroplasty of right shoulder Discharge Disposition: Discharge to home or self care 01/20/2025 12:30 PM AMORTIZATION SCHEDULE CLERK Office Visit [facility] Orthopaedic Surgery [address] [place] [address] 12th [place] [address] [place] [address] Ariel Pollard MD Status post reverse arthroplasty of right shoulder (Primary Dx) 01/19/2025 Telephone [facility] Orthopaedic Surgery [id number] [place] [address] 2nd [address] [place] [id number] Ariel Pollard MD 01/13/2025 Telephone [facility] Orthopaedic Surgery [address] [place] [address] 12th [place] [address] [place] [address] Ariel Pollard MD 01/13/2025 Orders Only [facility] Orthopaedic Surgery [address] [place] [address] 12th [place] [address] [place] [address] Ariel Pollard MD 01/10/2025 Telephone [facility] Anesthesia [address] [place] [address] Giuliano Newby MD 01/09/2025 Telephone [facility] Anesthesia [address] [place] [address] Giuliano Newby MD 01/07/2025 10:44 AM AMORTIZATION SCHEDULE CLERK - 01/08/2025 11:35 AM AMORTIZATION SCHEDULE CLERK Hospital Encounter [facility] [address] [place] [address] Ariel Pollard MD Osteoarthritis of right glenohumeral joint (Primary Dx); Acute postoperative pain of right shoulder Discharge Disposition: Discharge to home or self care 01/07/2025 1:25 PM AMORTIZATION SCHEDULE CLERK - 01/07/2025 4:20 PM AMORTIZATION SCHEDULE CLERK Surgery [facility] Operating Room [address] [place] [address] Ariel Pollard MD Right reverse shoulder arthroplasty 01/07/2025 1:25 PM AMORTIZATION SCHEDULE CLERK Anesthesia Event [facility] Operating Room [address] [place] [address] Joaquín Zelaya MD Thomas, Karen D., [employer] SUPERVISOR 12/31/2024 1:28 PM AMORTIZATION SCHEDULE CLERK - 12/31/2024 11:59 PM AMORTIZATION SCHEDULE CLERK Hospital Encounter [facility] [address] [place] [id number] Ariel Pollard MD Primary osteoarthritis of shoulders, bilateral Discharge Disposition: Discharge to home or self care 12/31/2024 1:00 PM AMORTIZATION SCHEDULE CLERK Pre-Admission Testing [facility] Center for Preoperative Assessment and Planning [facility] [address] [place] [phone] Preoperative testing (Primary Dx) 12/23/2024 Orders Only [facility] Orthopaedic Surgery [address] [place] [address] Advanced Medicine 12th [place] [address] [place] [address] Ariel Pollard MD Primary osteoarthritis of shoulders, bilateral (Primary Dx) from Last 3 Months Allergies No known active allergies Medications simvastatin [...] ORAL)Indication s:supplement Take 1 tablet by mouth automation test developer before breakfast Active oxyCODONE (ROXICODONE) 5 mg [...] Take 1 tablet by mouth nightly 01/08/20 25 Discontinu ed(Stop Taking at Discharge) cyanocobalamin, vitamin B-12, (VITAMIN B-12 ORAL)Indication s:supplement Take 1 tablet by mouth automation test developer before breakfast 01/08/20 25 Discontinu ed(Stop Taking at Discharge) glucosamine sulfate (Glucosamine) 500 mg tabletIndicatio ns:supplement/ joint pain Take 1 tablet by mouth 2 (two) times a day 01/08/20 25 Discontinu ed(Stop Taking at Discharge) multivitamin capsuleIndicati ons:Vitamin Deficiency,supp lement/ Good Health Take 1 capsule by mouth automation test developer before breakfast 01/08/20 Discontinu ed(Stop Taking at [...] 1 tablet by mouth every evening 01/08/20 25 Discontinu ed(Stop Taking at Discharge) acetaminophen ER [...] EVERY 6 HOURS FOR PAIN 4 01/08/20 25 Discontinu ed(Stop Taking at Discharge) cephalexin (KEFLEX) 500 mg capsuleIndicati ons:Other (complete free text reason below),surgical prophylaxis Take 1 capsule (500 mg total) by mouth every 6 (six) hours for 7 days 28 capsule 5 01/28/20 25 Active Problems Problem Noted Date Diagnosed Date Acute postoperative pain of right shoulder 01/08 S/P reverse total shoulder arthroplasty, right 0 01/07/2025 Osteoarthritis of right glenohumeral joint 07/27 Hypertension 10/31/2023 Hyperlipidemia 10/31/2023 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 left shoulder due to rotator cuff arthropathy 10/03/2023 Osteoarthritis of left glenohumeral joint 2022 Social History Tobacco Use Types Packs/Day Years [...] on file Sexual Orientation Not on file Last Filed Vital Signs Vital Sign Reading Time Taken Comments Blood Pressure 124/65 01/08/2025 7:21 AM AMORTIZATION SCHEDULE CLERK Pulse 82 01/08/2025 7:21 AM AMORTIZATION SCHEDULE CLERK Temperature 36.6 C (97.8 F) 01/08/2025 7:21 AM AMORTIZATION SCHEDULE CLERK Respiratory Rate 18 01/08/2025 7:21 AM AMORTIZATION SCHEDULE CLERK Oxygen Saturation 98% 01/08/2025 7:21 AM AMORTIZATION SCHEDULE CLERK Inhaled Oxygen Concentration - - Weight 80.3 kg (177 lb) 01/07/2025 11:16 AM AMORTIZATION SCHEDULE CLERK Height 162.6 cm (5' 4 ) 12/31/2024 12:39 PM AMORTIZATION SCHEDULE CLERK Body Mass Index 30.38 12/31/2024 12:39 PM AMORTIZATION SCHEDULE CLERK Plan of Treatment Not on file Medical Devices Implanted Type Area Psych Coordinator Device Identifier Shelf Expiration Date Model / Serial / Lot [employer] Od25 Mm Full Wedge Augment Shoulder 15 D Baseplate Glenoid [id number] - [id number] - [id number] Implanted:Qty: 1 on 10/03/2023 by Ariel Pollard MD at [facility] Other - see comments Left: Shoulder [employer] 01/26/2028 [id number] / [id number] / [employer] Aequalis Perform 7mm Reverse Screw Bone Sterile Latex Free [id number] - [id number] - [id number] Implanted:Qty: 1 on 10/03/2023 by Ariel Pollard MD at [facility] Other - see comments Left: Shoulder [employer] 05/10/2028 [id number] / [id number] / [employer] Tornier Aequalis Perform 39mm Reverse Shoulder Standard Sphere [id number] - S0 - [id number] Implanted:Qty: 1 on 10/03/2023 by Ariel Pollard MD at [facility] Other - see comments Left: Shoulder [employer] 07/29/2027 [id number] / 0 / [id number] [employer] Stem Perform Sz 3 Plus Humeral Long Dwx3pl - [id number] - [id number] Implanted:Qty: 1 on 10/03/2023 by Ariel Pollard MD at [facility] Other - see comments Left: Shoulder [employer] [id number] / [id number] / [employer] Spacer Perform 9mm Humeral Sz 3/4 Pdr021 - S0 - [id number] Implanted:Qty: 1 on 10/03/2023 by Ariel Pollard MD at [facility] Other - see comments Left: Shoulder [employer] 08/07/2027 [id number] / 0 / [id number] [employer] Insert Perform 10 Deg Ret Fbr3729 Awf1281 - S0 - [id number] Implanted:Qty: 1 on 10/03/2023 by Ariel Pollard MD at [facility] Other - see comments Left: Shoulder [employer] 12/25/2027 [id number] / 0 / [id number] [employer] Insert Perform 10 Deg Ret [id number] Ycs1355 - Sn/A - [id number] Implanted:Qty: 1 on 10/31/2023 by Ariel Pollard MD at [facility] Other - see comments Left: Shoulder [employer] [id number] 01/04/2028 [id number] / N/A / [id number] Description:Implant pause co mpleted prior to opening implant on sterile field [employer] Spacer Perform 9mm Humeral Sz 01/19 Fro887 - Sn/A - [id number] Implanted:Qty: 1 on 10/31/2023 by Ariel Pollard MD at [facility] Other - see comments Left: Shoulder [employer] [id number] 05/08/2028 BPL827 / N/A / [id number] Description:Implant pause co mpleted [employer] Tornier Aequalis Perform 39mm Reverse Shoulder Standard Sphere Pxa509 - [id number] - [id number] Implanted:Qty: 1 on 10/31/2023 by Ariel Pollard MD at [facility] Other - see comments Left: Shoulder [employer] [id number] 07/15/2028 [id number] / [id number] / Description:Implant pause co mpleted [employer] Aequalis Perform Reversed Od5 Mm L50 Mm Peripheral Glenoid Screw Baseplate Nonsterile Dmd894 - S0 - [id number] Implanted:Qty: 1 on 10/03/2023 by Ariel Pollard MD at [facility] Screw Left: Shoulder [employer] [id number] / 0 / [employer] Aequalis Perform Reversed 5mm 38mm Peripheral Glenoid Screw Ygf279 - S0 - [id number] Implanted:Qty: 1 on 10/03/2023 by Ariel Pollard MD at [facility] Screw Left: Shoulder [employer] MZE192 / 0 / [employer] Aequalis Perform Reversed 5mm 34mm Peripheral Glenoid Screw Ych068 - [id number] Implanted:Qty: 2 on 10/31/2023 by Ariel Pollard MD at [facility] Screw Left: Shoulder [employer] QWH560 / / Description:From instrument set [employer] Aequalis Perform Reversed Od5 Mm L54 Mm Peripheral Glenoid Screw Baseplate Nonsterile Oqy023 - [id number] Implanted:Qty: 1 on 10/31/2023 by Ariel Pollard MD at [facility] Screw Left: Shoulder [employer] ONT928 / / Description:From instrument set Knee Replacement Left: Knee [employer] Aequalis Perform Reversed 5mm 26mm Peripheral Glenoid Screw Ekc038 - S0 - [id number] Implanted:Qty: 1 on 10/03/2023 by Ariel Pollard MD at [facility] Left: Shoulder [employer] YOB344 / 0 / [employer] Od25 Mm Full Wedge Augment Shoulder 15 D Baseplate Glenoid Muy593 - [id number] - [id number] Implanted:Qty: 1 on 01/07/2025 by Ariel Pollard MD at [facility] Right: Shoulder [employer] 10/08/2029 [id number] / [id number] / [employer] Aequalis Perform Reversed Od6.5 Mm L30 Mm Central Glenoid Screw Baseplate Nonsterile Ovq858 - [id number] Implanted:Qty: 1 on 01/07/2025 by Ariel Pollard MD at [facility] Right: Shoulder [employer] BWL458 / / [employer] Aequalis Perform Reversed 5mm 34mm Peripheral Glenoid Screw Jpq449 - [id number] Implanted:Qty: 2 on 01/07/2025 by Ariel Pollard MD at [facility] Right: Shoulder [employer] JPY888 / / [employer] Tornier Aequalis Perform 39mm Reverse Shoulder Standard Sphere Peg119 - [id number] - [id number] Implanted:Qty: 1 on 01/07/2025 by Ariel Pollard MD at [facility] Right: Shoulder [employer] 07/21/2029 RFS058 / [id number] / [employer] Insert Perform 10 Deg Ret [id number] Rqk0819 - [id number] - [id number] Implanted:Qty: 1 on 01/07/2025 by Ariel Pollard MD at [facility] Right: Shoulder [employer] 03/29/2028 [id number] / [id number] / [employer] Tray Stem Humeral Shoulder Reverse Long Tornier Perform [id number] Dwx3pl - [id number] - [id number] Implanted:Qty: 1 on 01/07/2025 by Ariel Pollard MD at [facility] Right: Shoulder [employer] 08/18/2029 [id number] / [id number] / Explanted Type Area Psych Coordinator Device Identifier Shelf Expiration Date Model / Serial / Lot [employer] Insert Perform 10 Deg Ret [id number] - [id number] - [id number] Explanted:Qty : 1 on 10/03/2023 by Ariel Pollard MD at [facility] Other - see comments Left: Shoulder [employer] [id number] 07/01/2025 [id number] / [id number] / [employer] Aequalis Perform Reversed 5mm 34mm Peripheral Glenoid Screw Mxu287 - [id number] Explanted:Qty : 1 on 10/03/2023 at [facility] Left: Shoulder [employer] RMZ778 / / Procedures Procedure Name Priority Date/Time Associated Diagnosis Comments XR SHOULDER RIGHT 2 OR MORE VIEWS Schedule Routine, Read Routine (OP Routine) 01/20/2025 12:30 PM AMORTIZATION SCHEDULE CLERK Status post reverse arthroplasty of right shoulder EGFR Timed 01/08/2025 2:29 AM AMORTIZATION SCHEDULE CLERK BASIC METABOLIC PANEL Timed 01/08/2025 2:29 AM AMORTIZATION SCHEDULE CLERK HEMOGLOBIN AND HEMATOCRIT Timed 01/08/2025 2:29 AM AMORTIZATION SCHEDULE CLERK XR SHOULDER RIGHT 2 OR MORE VIEWS IP Routine 01/07/2025 4:12 PM AMORTIZATION SCHEDULE CLERK [place] AN PROCEDURE PLACEHOLDER Routine 01/07/2025 1:49 PM AMORTIZATION SCHEDULE CLERK [place] AN ELECTIVE ENDOTRACHEAL AIRWAY Routine 01/07/2025 1:49 PM AMORTIZATION SCHEDULE CLERK ARTHROPLASTY SHOULDER - REVERSE TOTAL 01/07/2025 1:24 PM AMORTIZATION SCHEDULE CLERK Osteoarthritis of right glenohumeral joint Case Notes 2/3 per jens via case message/email, date is 01/07/25- email sent to confirm surgery date. MC11/18 PER JENS, JOSEPHINE MIKE- [place] AN PROCEDURE PLACEHOLDER Routine 01/07/2025 1:16 PM AMORTIZATION SCHEDULE CLERK [place] AN PROCEDURE PLACEHOLDER Routine 01/07/2025 1:06 PM AMORTIZATION SCHEDULE CLERK ANESTHESIA PERIPHERAL BLOCK Routine 01/07/2025 1:06 PM AMORTIZATION SCHEDULE CLERK CT SHOULDER RIGHT WO CONTRAST Schedule Routine, Read Routine (OP Routine) 12/31/2024 1:50 PM AMORTIZATION SCHEDULE CLERK Primary osteoarthritis of shoulders, bilateral EGFR Routine 12/31/2024 1:24 PM AMORTIZATION SCHEDULE CLERK Preoperative testing DIFFERENTIAL AUTO Routine 12/31/2024 1:2 4 PM AMORTIZATION SCHEDULE CLERK Preoperative testing BASIC METABOLIC PANEL Routine 12/31/2024 1:24 PM AMORTIZATION SCHEDULE CLERK Preoperative testing CBC WITH AUTO DIFFERENTIAL Routine 12/31/2024 1:24 PM AMORTIZATION SCHEDULE CLERK Preoperative testing from Last 3 Months Results * XR Shoulder Right 2+ View (01/20/2025 12:30 PM AMORTIZATION SCHEDULE CLERK) Anatomical Region Laterality Modality Upper Extremities, Shoulder Right Comp uted Radiography 01/20/2025 12:3 7 PM AMORTIZATION SCHEDULE CLERK Impressions 01/20/2025 12:37 PM AMORTIZATION SCHEDULE CLERK 1. Reverse right total shoulder arthroplasty in unchanged, expected position. Electronically signed by: Yoel Grossman M.D. Narrative 01/20/2025 12:37 PM AMORTIZATION SCHEDULE CLERK EXAMINATION: XR SHOULDER RIGHT 2 OR MORE [...] Re sult * eGFR (01/08/2025 2:29 AM AMORTIZATION SCHEDULE CLERK) eGFR >90 >=60 mL/min/1. 73 m2 Comment: [...] last reviewed 2021. Blood 01/08/2025 2:29 AM AMORTIZATION SCHEDULE CLERK 01/08/2025 2:38 AM AMORTIZATION SCHEDULE CLERK Johnnie Vela MD LAB BLOOD ORDERABLES [facility] Result Performing Organization Address [facility] Co de Phone Number [facility] Department [place] [address] * (ABNORMAL) Hemoglobin and hematocrit (01/08/2025 2:29 AM AMORTIZATION SCHEDULE CLERK) [facility] Hgb 10.1(L) 13.0 - 17.5 g/dL Hct 31.1(L) 38.9 - 50.3 % [facility] Blood 01/08/2025 2:29 AM AMORTIZATION SCHEDULE CLERK 01/08/2025 2:38 AM AMORTIZATION SCHEDULE CLERK Narrative [facility] - 01/08/2025 2:49 AM AMORTIZATION SCHEDULE CLERK change to CBC when needed Johnnie Vela MD LAB BLOOD ORDERABLES nal Result Performing Organization Address [facility] Co de Phone Number [facility] Department [place] [address] * (ABNORMAL) Basic metabolic panel (01/08/2025 2:29 AM AMORTIZATION SCHEDULE CLERK) [facility] Sodium 135 135 - 145 mmol/L Potassium, pl 4.6 3.3 - 4.9 mmol/L [facility] Chloride 101 97 - 110 mmol/L [facility] CO2 26 22 - 32 mmol/L [facility] Anion gap 8 2 - 15 mmol/L [facility] BUN 17 6 - 25 mg/dL [facility] Creatinine 0.91 0.80 - 1.30 mg/dL [facility] Glucose 178 70 - 199 mg/dL [facility] Comment: Interpretive Data Fasting glucose [...] 2022. Calcium 8.4(L) 8.5 - 10.3 mg/dL [facility] Blood 01/08/2025 2:29 AM AMORTIZATION SCHEDULE CLERK 01/08/2025 2:38 AM AMORTIZATION SCHEDULE CLERK Narrative [facility] - 01/08/2025 3:09 AM AMORTIZATION SCHEDULE CLERK Daily Johnnie Vela MD LAB BLOOD ORDERABLES Fi nal Result [facility] Department [place] [address] * XR Shoulder Right 2+ View (01/07/2025 4:12 PM AMORTIZATION SCHEDULE CLERK) Anatomical Region Laterality Modality Upper Extremities, Shoulder Right [facility] 01/07/2025 4:42 PM AMORTIZATION SCHEDULE CLERK Impressions 01/07/2025 4:43 PM AMORTIZATION SCHEDULE CLERK 1. Interval right total reverse shoulder arthroplasty in expected position. Dictated by: Philip Hutchison M.D. The radiology attending physician has personally reviewed this study, and had reviewed and/or edited this written report and agrees with it. Electronically signed by: Efraín Moreno D.O. Narrative 01/07/2025 4:43 PM AMORTIZATION SCHEDULE CLERK EXAMINATION: XR SHOULDER RIGHT 2 OR MORE [...] aortic arch noted. Procedure Note Efraín Moreno, DO - 01/07/2025 EXAMINATION: XR SHOULDER RIGHT 2 [...] MD IMG XR PROCEDURES Final Result * [place] AN ELECTIVE ENDOTRACHEAL AIRWAY, [place] AN PROCEDURE PLACEHOLDER (01/07/2025 1:49 PM AMORTIZATION SCHEDULE CLERK) Narrative Patricia Padilla RN - 01/07/2025 1:49 PM AMORTIZATION SCHEDULE CLERK Patricia Padilla RN 01/07/2025 1:51 PM Airway [...] of attempts: 1 Planned trial extubation: yes Joqauín Zelaya MD ANESTHESIA ORDERABLE S Final Result * [place] AN PROCEDURE PLACEHOLDER (01/07/2025 1:16 PM AMORTIZATION SCHEDULE CLERK) Narrative Eduardo Clark MD - 01/07/2025 1:16 PM AMORTIZATION SCHEDULE CLERK Eduardo Clark MD 01/07/2025 3:12 PM Peripheral [...] patient tolerated procedure well with no complications Joaquín Zelaya MD ANESTHESIA ORDERABLE S Final Result * BW IP ANE LDA PERIPHERAL NERVE CATHETER, [place] AN PROCEDURE PLACEHOLDER (01/07/2025 1:06 PM AMORTIZATION SCHEDULE CLERK) Narrative Eduardo Clark MD - 01/07/2025 1:06 PM AMORTIZATION SCHEDULE CLERK Eduardo Clark MD 01/07/2025 3:12 PM Peripheral Block Patient location during procedure: pre-op holding Start time: 01/07/2025 12:06 PM End time: 01/07/2025 12:36 PM Reason for block: post-op pain management per surgeon request Ultrasound image in chart or stored: yes Block type: catheter continuous infusion Laterality: right Block type: brachial plexus - interscalene Staff: Supervising provider: Eduardo Clark MD Placed [...] and echogenic Needle gauge: 21 G ([employer] [id number]) Injection assessment: injection made incrementally with constant [...] Shoulder Right WO Contrast (12/31/2024 1:50 PM AMORTIZATION SCHEDULE CLERK) Anatomical Region Laterality Modality Upper Extremities Right Computed Tomog florecita 12/31/2024 3:10 PM AMORTIZATION SCHEDULE CLERK Impressions 12/31/2024 4:35 PM AMORTIZATION SCHEDULE CLERK Preoperative planning CT demonstrates severe right glenohumeral osteoarthritis with remodeling of the humeral head, moderate glenoid retroversion, and borderline glenoid bone stock. Dictated by: Efraín Moreno D.O. The radiology attending physician has personally reviewed this study, and had reviewed and/or edited this written report and agrees with it. Electronically signed by: Clay Pérez MD Narrative 12/31/2024 4:35 PM AMORTIZATION SCHEDULE CLERK EXAMINATION: CT SHOULDER RIGHT WO CONTRAST HISTORY: [...] Re sult * eGFR (12/31/2024 1:24 PM AMORTIZATION SCHEDULE CLERK) eGFR >90 >=60 mL/min/1. 73 m2 Comment: [...] last reviewed 2021. Blood 12/31/2024 1:24 PM AMORTIZATION SCHEDULE CLERK 12/31/2024 1:47 PM AMORTIZATION SCHEDULE CLERK Annmarie Orozco [employer] SUPERVISOR LAB BLOOD ORDERABLES Final Result [facility] Department [place] [address] * Differential, auto (12/31/2024 1:24 PM AMORTIZATION SCHEDULE CLERK) Neutrophil abs 5.6 1.5 - 6.5 K/cumm Imm gran abs 0.0 0.0 - 0.1 K/cumm [facility] Lymphocyte abs 2.4 0.8 - 3.3 K/cumm [facility] Monocyte abs 0.7 0.2 - 0.8 K/cumm [facility] Eosinophil abs 0.1 0.0 - 0.5 K/cumm [facility] Basophil abs 0.0 0.0 - 0.1 K/cumm [facility] Neutrophil pct 62.9 % [facility] Comment: Interpretive Data Percent cell count reference ranges are not reported, since discordance with absolute values may lead to misinterpretation of CBC data. Current Interpretive Data was last revised on 2018. Imm gran pct 0.2 % [facility] Comment: Interpretive Data Percent cell count reference ranges are not reported, since discordance with absolute values may lead to misinterpretation of CBC data. Current Interpretive Data was last revised on 2018. Lymphocyte pct 27.3 % [facility] Comment: Interpretive Data Percent cell count reference ranges are not reported, since discordance with absolute values may lead to misinterpretation of CBC data. Current Interpretive Data was last revised on 2018. Monocyte pct 8.0 % [facility] Comment: Interpretive Data Percent cell count reference ranges are not reported, since discordance with absolute values may lead to misinterpretation of CBC data. Current Interpretive Data was last revised on 2018. Eosinophil pct 1.4 % [facility] Comment: Interpretive Data Percent cell count reference ranges are not reported, since discordance with absolute values may lead to misinterpretation of CBC data. Current Interpretive Data was last revised on 2018. Basophil pct 0.2 % [facility] Comment: Interpretive Data Percent cell count reference ranges are not reported, since discordance with absolute values may lead to misinterpretation of CBC data. Current Interpretive Data was last revised on 2018. Blood 12/31/2024 1:24 PM AMORTIZATION SCHEDULE CLERK 12/31/2024 1:47 PM AMORTIZATION SCHEDULE CLERK Annmarie Orozco NP LAB BLOOD ORDERABLES Final Result [facility] Department [place] [address] * (ABNORMAL) CBC with auto differential (12/31/2024 1:24 PM AMORTIZATION SCHEDULE CLERK) WBC 8.9 3.8 - 9.9 K/cumm Hgb 12.6(L) 13.0 - 17.5 g/dL [facility] Hct 38.3(L) 38.9 - 50.3 % [facility] Plt 330 150 - 400 K/cumm [facility] MPV 8.8(L) 9.1 - 12.3 fL [facility] RBC 4.49 4.30 - 5.80 M/cumm [facility] MCV 85.3 81.3 - 96.4 fL [facility] MCH 28.1 27.1 - 33.3 pg [facility] MCHC 32.9 32.3 - 35.7 g/dL [facility] RDW CV 15.4(H) 11.1 - 14.9 % [facility] RDW SD 48.3(H) 35.7 - 48.1 fL [facility] NRBC abs 0.00 0.00 - 0.01 K/cumm [facility] Blood 12/31/2024 1:24 PM AMORTIZATION SCHEDULE CLERK 12/31/2024 1:47 PM AMORTIZATION SCHEDULE CLERK Annmarie Orozco NP LAB BLOOD ORDERABLES Final Result Performing Organization Address City/[facility]/ZIP Co de Phone Number [facility] [place] [address] * (ABNORMAL) Basic metabolic panel (12/31/2024 1:24 PM AMORTIZATION SCHEDULE CLERK) Sodium 137 135 - 145 mmol/L Potassium, pl 4.1 3.3 - 4.9 mmol/L [facility] Chloride 98 97 - 110 mmol/L [facility] CO2 27 22 - 32 mmol/L [facility] Anion gap 12 2 - 15 mmol/L [facility] BUN 12 6 - 25 mg/dL [facility] Creatinine 0.74(L) 0.80 - 1.30 mg/dL [facility] Glucose 107 70 - 199 mg/dL [facility] Comment: Interpretive Data Fasting glucose [...] 2022. Calcium 9.5 8.5 - 10.3 mg/dL [facility] Blood 12/31/2024 1:24 PM AMORTIZATION SCHEDULE CLERK 12/31/2024 1:47 PM AMORTIZATION SCHEDULE CLERK Annmarie Orozco NP LAB BLOOD ORDERABLES Final Result [place] [facility] [place] [address] from Last 3 Months Insurance MEDICARE [facility] [employer] MED[employer]ARE [facility] Advance Directives For more information, please contact: [phone] * Full Code (Latest Code Status on File) Date Activated Date Inactivated Comments 01/07/2025 7:21 PM 01/08/2025 3:40 PM * Full Code Date Activated Date Inactivated Comments 10/31/2023 7:44 PM 11/05/2023 7:58 PM * Full Code Date Activated Date Inactivated Comments 10/03/2023 7:50 PM 10/04/2023 4:31 PM Care Teams Complaint Evaluation Officer Relationship Specialty Start Date End Date Liliam Gregory MD [address] [facility] [address] [address] PCP - General Family Practice 03/01/23
== END 2025-02-01 12:58 | disposition home or self-care (01) ==
PROVIDERS: PCP Family Medicine; Visit Provider Nurse Practitioner Family
DX: D72.829 Elevated white blood cell count, unspecified (principal); D75.839 Thrombocytosis, unspecified
CPT/HCPCS: 36415; 85025

== ENCOUNTER 2025-06-19 08:24 | Outpatient (CLI) | payer MEDICARE, SELFPAY ==
--- OUTSIDE RECORDS SUMMARY | 2025-06-19 08:28 | XMS_ITS | Referral Summary ---
Author Organization [facility] Address [address] [place] [id number] Care Team Providers Care Ginseng Farmer Name Role Phone Liliam Gregory MD Primary Care Provider Encounters Date Type Department Care Team Description 04/14/2025 8:15 AM CDT - 04/14/2025 11:59 PM CDT Hospital Encounter [facility] [address] [place] [address] Status post reverse arthroplasty of right shoulder Discharge Disposition: Discharge to home or self care 04/14/2025 8:30 AM CDT Office Visit [facility] Orthopaedic Surgery [address] [place] [address] [address] [place] [address] [place] [address] Ariel Pollard MD Status post reverse arthroplasty of right shoulder 04/08/2025 Telephone [facility] Orthopaedic Surgery [address] [place] [address] 12th [place] [address] [place] [address] Ariel Pollard MD from Last 3 Months Allergies No known [...] ORAL)Indication s:supplement Take 1 tablet by mouth ordering box operator before breakfast Active oxyCODONE (ROXICODONE) 5 mg [...] 4hrs as needed 6 tablet 5 Active Active Problems Problem Noted Date Diagnosed Date [...] Comments Blood Pressure 124/65 01/08/2025 7:21 AM COMMERCIAL LENDING ASSISTANT Pulse 82 01/08/2025 7:21 AM COMMERCIAL LENDING ASSISTANT Temperature 36.6 C (97.8 F) 01/08/2025 7:21 AM COMMERCIAL LENDING ASSISTANT Respiratory Rate 18 01/08/2025 7:21 AM COMMERCIAL LENDING ASSISTANT Oxygen Saturation 98% 01/08/2025 7:21 AM COMMERCIAL LENDING ASSISTANT Inhaled Oxygen Concentration - - Weight 80.3 kg (177 lb) 01/07/2025 11:16 AM COMMERCIAL LENDING ASSISTANT Height 162.6 cm (5' 4) 12/31/2024 12:39 PM COMMERCIAL LENDING ASSISTANT Body Mass Index 30.38 12/31/2024 12:39 PM COMMERCIAL LENDING ASSISTANT Plan of Treatment Not on file Medical Devices Implanted Type Area Correspondent Device Identifier Shelf Expiration Date Model / Serial / Lot Tipping Bucket Od25 Mm Full Wedge Augment Shoulder 15 D Baseplate Glenoid [id number] - [id number] - [id number] Implanted:Qty: 1 on 10/03/2023 by Ariel Pollard MD at [facility] Other - see comments Left: Shoulder [employer] 01/26/2028 [id number] / [id number] / [employer] Aequalis Perform 7mm Reverse Screw Bone Sterile Latex Free Hff140 - [id number] - [id number] Implanted:Qty: 1 on 10/03/2023 by Ariel Pollard MD at [facility] Other - see comments Left: Shoulder [employer] 05/10/2028 KSL545 / [id number] / [employer] Tornier Aequalis Perform 39mm Reverse Shoulder Standard Sphere Wtp026 - S0 - [id number] Implanted:Qty: 1 on 10/03/2023 by Ariel Pollard MD at [facility] Other - see comments Left: Shoulder [employer] 07/29/2027 [id number] / 0 / [id number] [employer] Stem Perform Sz 3 Plus Humeral Long Dwx3pl - [id number] - [id number] Implanted:Qty: 1 on 10/03/2023 by Ariel Pollard MD at [facility] Other - see comments Left: Shoulder [employer] [id number] / [id number] / [employer] Spacer Perform 9mm Humeral Sz 3/4 Mvk253 - S0 - [id number] Implanted:Qty: 1 on 10/03/2023 by Ariel Pollard MD at [facility] Other - see comments Left: Shoulder [employer] 08/07/2027 JRT132 / 0 / [id number] [employer] Insert Perform 10 Deg Ret [id number] Kxw0432 - S0 - [id number] Implanted:Qty: 1 on 10/03/2023 by Ariel Pollard MD at [facility] Other - see comments Left: Shoulder [employer] 12/25/2027 [id number] / 0 / [id number] [employer] Insert Perform 10 Deg Ret [id number] - Sn/A - [id number] Implanted:Qty: 1 on 10/31/2023 by Ariel Pollard MD at [facility] Other - see comments Left: Shoulder [employer] [id number] 01/04/2028 [id number] / N/A / [id number] Description:Implant pause co mpleted prior to opening implant on sterile field [employer] Spacer Perform 9mm Humeral Sz 3/4 Jqx470 - Sn/A - [id number] Implanted:Qty: 1 on 10/31/2023 by Ariel Pollard MD at [facility] Other - see comments Left: Shoulder [employer] [id number] 05/08/2028 VHL190 / N/A / [id number] Description:Implant pause co mpleted [employer] Tornier Aequalis Perform 39mm Reverse Shoulder Standard Sphere Cmq103 - [id number] - [id number] Implanted:Qty: 1 on 10/31/2023 by Ariel Pollard MD at [facility] Other - see comments Left: Shoulder [employer] [id number] 07/15/2028 KLV604 / [id number] / Description:Implant pause co mpleted [employer] Aequalis Perform Reversed Od5 Mm L50 Mm Peripheral Glenoid Screw Baseplate Nonsterile Qar972 - S0 - [id number] Implanted:Qty: 1 on 10/03/2023 by Ariel Pollard MD at [facility] Screw Left: Shoulder [employer] [id number] / 0 / [employer] Aequalis Perform Reversed 5mm 38mm Peripheral Glenoid Screw Kkn354 - S0 - [id number] Implanted:Qty: 1 on 10/03/2023 by Ariel Pollard MD at [facility] Screw Left: Shoulder [employer] MOY828 / 0 / [employer] Aequalis Perform Reversed 5mm 34mm Peripheral Glenoid Screw Nat417 - [id number] Implanted:Qty: 2 on 10/31/2023 by Ariel Pollard MD at [facility] Screw Left: Shoulder [employer] MCK532 / / Description:From instrument set [employer] Aequalis Perform Reversed Od5 Mm L54 Mm Peripheral Glenoid Screw Baseplate Nonsterile Mml543 - [id number] Implanted:Qty: 1 on 10/31/2023 by Ariel Pollard MD at [facility] Screw Left: Shoulder [employer] CED627 / / Description:From instrument set Knee Replacement Left: Knee [employer] Aequalis Perform Reversed 5mm 26mm Peripheral Glenoid Screw Lfg949 - S0 - [id number] Implanted:Qty: 1 on 10/03/2023 by Ariel Pollard MD at [facility] Left: Shoulder [employer] ZCO356 / 0 / [employer] Od25 Mm Full Wedge Augment Shoulder 15 D Baseplate Glenoid Luw257 - [id number] - [id number] Implanted:Qty: 1 on 01/07/2025 by Ariel Pollard MD at [facility] Right: Shoulder [employer] 10/08/2029 DIB142 / [id number] / [employer] Aequalis Perform Reversed Od6.5 Mm L30 Mm Central Glenoid Screw Baseplate Nonsterile Gvl277 - [id number] Implanted:Qty: 1 on 01/07/2025 by Ariel Pollard MD at [facility] Right: Shoulder [employer] YGA209 / / [employer] Aequalis Perform Reversed 5mm 34mm Peripheral Glenoid Screw Vfs875 - [id number] Implanted:Qty: 2 on 01/07/2025 by Ariel Pollard MD at [facility] Right: Shoulder [employer] QLO328 / / [employer] Tornier Aequalis Perform 39mm Reverse Shoulder Standard Sphere Kpa047 - [id number] - [id number] Implanted:Qty: 1 on 01/07/2025 by Ariel Pollard MD at [facility] Right: Shoulder [employer] 07/21/2029 DSP428 / [id number] / [employer] Insert Perform 10 Deg Ret [id number] Fjz5006 - [id number] - [id number] Implanted:Qty: 1 on 01/07/2025 by Ariel Pollard MD at [facility] Right: Shoulder [employer] 03/29/2028 WOK1164 / [id number] / [employer] Tray Stem Humeral Shoulder Reverse Long Tornier Perform [id number] Dwx3pl - [id number] - [id number] Implanted:Qty: 1 on 01/07/2025 by Ariel Pollard MD at [facility] Right: Shoulder [employer] 08/18/2029 DWX3PL / [id number] / Explanted Type Area Correspondent Device Identifier Shelf Expiration Date Model / Serial / Lot [employer] Insert Perform 10 Deg Ret Wdl6397 Ttm6697 - [id number] - [id number] Explanted:Qty : 1 on 10/03/2023 by Ariel Pollard MD at [facility] Other - see comments Left: Shoulder [employer] [id number] 07/01/2025 [id number] / [id number] / Tipping Bucket Aequalis Perform Reversed 5mm 34mm Peripheral Glenoid Screw Aik929 - [id number] Explanted:Qty : 1 on 10/03/2023 at [facility] Left: Shoulder Tipping Bucket GES516 / / Procedures Procedure Name Priority Date/Time Associated Diagnosis Comments XR SHOULDER RIGHT 2 OR MORE VIEWS Schedule Routine, Read Routine (OP Routine) 04/14/2025 8:29 AM CDT Status post reverse arthroplasty of right shoulder from Last 3 Months Results * XR Shoulder Right 2+ View (04/14/2025 8:29 AM CDT) Anatomical Region Laterality Modality Upper Extremities, Shoulder Right Comp uted Radiography 04/14/2025 8:43 AM CDT Impressions 04/14/2025 8:43 AM CDT Unchanged reverse total right glenohumeral arthroplasty in expected position. Electronically signed by: Maco Armstrong M.D. Narrative 04/14/2025 8:43 AM CDT XR SHOULDER RIGHT 2 OR MORE VIEWS HISTORY: Shoulder arthroplasty. FINDINGS: 4 views of the right shoulder are obtained and compared with 02/24/2025. There is redemonstrated reverse total right glenohumeral arthroplasty. Orthopedic components are in expected position. There is no periprosthetic fracture or osteolysis. Alignment and soft tissues are normal. Unchanged mild acromioclavicular osteoarthritis. Procedure Note Maco Armstrong MD - 04/14/2025 XR SHOULDER RIGHT 2 OR MORE VIEWS HISTORY: Shoulder arthroplasty. FINDINGS: 4 views of the right shoulder are obtained and compared with 02/24/2025. There is redemonstrated reverse total right glenohumeral arthroplasty. Orthopedic components are in expected position. There is no periprosthetic fracture or osteolysis. Alignment and soft tissues are normal. Unchanged mild acromioclavicular osteoarthritis. IMPRESSION: Unchanged reverse total right glenohumeral arthroplasty in expected position. Electronically signed by: Maco Armstrong M.D. Ariel Pollard MD IMG XR PROCEDURES Final Re sult from Last 3 Months Insurance MEDICARE [facility] [employer] INSURANCE MEDICARE [employer] [place] [address] [place] [id number] Advance Directives For more information, please contact: [phone] * Full Code (Latest Code Status on File) Date Activated Date Inactivated Comments 01/07/2025 7:21 PM 01/08/2025 3:40 PM * Full Code Date Activated Date Inactivated Comments 10/31/2023 7:44 PM 11/05/2023 7:58 PM * Full Code Date Activated Date Inactivated Comments 10/03/2023 7:50 PM 10/04/2023 4:31 PM Care Teams Ginseng Farmer Relationship Specialty Start Date End Date Liliam Gregory MD [address] [facility] [address] [place] [address] PCP - General Family Practice 03/01/23
--- OUTSIDE RECORDS SUMMARY | 2025-06-19 08:28 | XMS_ITS | Continuity of Care Document ---
Author Organization [employer] [place] Address [facility] [address] [place] [address] Phone Care Team Providers Care Right Of Way Manager Name Role Phone Dae Liz Unavailable Unavailable Procedures Procedure Date Therapeutic Activities Neuromuscular Re-Ed Therapeutic Exercise Therapeutic Activities Neuromuscular Re-Ed Therapeutic Exercise Therapeutic Activities Neuromuscular Re-Ed Therapeutic Exercise Therapeutic Activities Neuromuscular Re-Ed Therapeutic Exercise Therapeutic Activities Neuromuscular Re-Ed Therapeutic Exercise Doc neg elder mal no plan PT Evaluation Moderate Complexity Therapeutic Activities Neuromuscular Re-Ed Therapeutic Activities Therapeutic Exercise Hot or Cold Pack Manual Therapy Therapeutic Activities Therapeutic Exercise Hot or Cold Pack Doc neg elder mal no plan PT Evaluation Moderate Complexity Neuromuscular Re-Ed Therapeutic Activities Therapeutic Exercise Advance Directives Directive Yes / No Effective Date File Name No Information Encounters Encounter Description Practice Location Reason(s) For Visit Diagnoses Date Provider Providers Copied on Encounter [facility], [address], [place], [place], [id number], [place] [phone] [place] No Information May-0 8- 4 Muehl Dae. [address] [place] [address], [address], [place], [place], [facility], [place]. tel:[phone] [facility] [address], [place], [place], [id number], [place] tel:[phone] [place] No Information Mar-2 4 Muehl Dae. [address] [place] [address], [address], [place], [place], [facility], [place]. tel: [phone] Referring Provider: Ariel Pollard [address] [place] [address], [place], [place], [facility]. tel:[phone] [place], [place] [address] [place], [place] [address], [place], [id number], [place] tel:[phone] [place] No Information Mar-0 6 4 Muehl Dae. [address] [place] [address], [address], [place], [place], [facility], [place]. tel: [phone] Referring Provider: Ariel Pollard [address] [place] [address], [place], [address]. tel:[phone] [place] [address] [place], [place] [address], [place], [id number], [place] tel:[phone] [place] No Information Mar-0 -202 4 Muehl Dae. [address] [place] [address], [address], [place], [place], [facility], [place]. tel:[phone] Referring Provider: Ariel Pollard [address] [place] [address], [place], [address]. tel:[phone] [place] [address], [address], [place], [place], [id number], [place] tel:[phone] [place] No Information Feb-2 6-202 4 Muehl Dae. [address] [place] [address], [address], [place], [address], [place]. tel: [phone] Referring Provider: Ariel Pollard [address], [place], [address]. tel:[phone] [place] [address], [id number], tel:[phone] [place] No Information 4 Muehl Dae. [address] [facility], [address], [place], [address], [place]. tel: [phone] Referring Provider: Ariel Pollard [address], [place], [address]. tel:[phone] [place] [address], [id number], [place] tel:[phone] [place] No Information 4 Muehl Dae. [address] [place] [address], [address], [place], [address], [place]. tel: [phone] Referring Provider: Ariel Pollard [address], [place], [address]. tel:[phone] [place] [address], [id number], [place] tel:[phone] [place] No Information 3 Muehl Dae. [address] [facility], [address], [place], [address], [place]. tel: [phone] Referring Provider: Ariel Pollard [address], [place], [address]. tel:[phone], [id number], [place] tel:[phone] [place] No Information 3 Muehl Dae. [address] [facility], [address], [place], [address], [place]. tel: [phone] Referring Provider: Ariel Pollard [facility], [place], [address]. tel:[phone] [employer] [place], [address] [facility] [address], [place], [place], [id number], [place] tel:[phone] [place] No Information 3 Destinee Pearl. [address] [facility], [address], [place], [address], [place]. tel: [phone] Referring Provider: Idris Gamble[address] [facility], [place], [address]. tel:[phone] Family History Family Member Type Diagnosis Age At Onset No Information Payers Payer name Insurance type Covered alliance party ID Tasia duncan(s) Medicare [place] [id number] [facility] [id number] Social History Type Description Quantity Date Captured [...]
--- OUTSIDE RECORDS SUMMARY | 2025-06-19 08:29 | XMS_ITS | Clinical Summary ---
Author Organization [facility] Address [facility] [place] [address] Care Team Providers Care Database Administrator Name Role Phone Liliam Gregory MD Primary [...] ORAL)Indication s:supplement Take 1 tablet by mouth speech therapist early intervention before breakfast Active oxyCODONE (ROXICODONE) 5 mg [...] Date Type Department Care Team Description 04/14/2025 8:30 AM CDT Office Visit [facility] [address] [facility] [address] [place] [address] [place] [address] Ariel Pollard MD Status post reverse arthroplasty of right shoulder 04/14/2025 8:15 AM CDT - 04/14/2025 11:59 PM CDT Hospital Encounter [facility] [address] [place] [id number] Status post reverse arthroplasty of right shoulder Discharge Disposition: Discharge to home or self care 04/08/2025 Telephone [facility] [facility] [address] [place] [address] [place] [address] Ariel Pollard MD from Last 3 Months Surgical History Surgery [...] Comments Blood Pressure 124/65 01/08/2025 7:21 AM [facility] ELECTROLYT[facility] Pulse 82 01/08/2025 7:21 AM ETCHER ELECTROLYTIC Temperature 36.6 C (97.8 F) 01/08/2025 7:21 AM ETCHER ELECTROLYTIC Respiratory Rate 18 01/08/2025 7:21 AM ETCHER ELECTROLYTIC Oxygen Saturation 98% 01/08/2025 7:21 AM ETCHER ELECTROLYTIC Inhaled Oxygen Concentration - - Weight 80.3 kg (177 lb) 01/07/2025 11:16 AM ETCHER ELECTROLYTIC Height 162.6 cm (5' 4) 12/31/2024 12:39 PM ETCHER ELECTROLYTIC Body Mass Index 30.38 12/31/2024 12:39 PM ETCHER ELECTROLYTIC Plan of Treatment Health Maintenance Due Date Last Done Comments Colon Cancer Screening-Colonoscopy 1955 Depression Screening 1956 Hepatitis C Screening 1956 Prostate Cancer Screening-PSA 1956 Hepatitis B Screening 1974 Well Visit 65+ 2021 Pneumococcal vaccine 65+ (2 of 2 - PCV) 01/08/2023 01/08/2022 Covid-19 Vaccine (4 - season) 2024 10/27/2021, 01/28/2021, 12/31/2020 Influenza Vaccine (#1) 2025 , 01/08/2022, 09/16/2017 Zoster Vaccine (2 of 2) 07/24/2025 05/29/2025 Fall Risk Assessment 01/08/2026 01/08/2025 DTaP/Tdap/Td Vaccine (2 - Td or Tdap) 12/19/203411/2024 Medical Devices Implanted Type Area [employer] Device Identifier Shelf Expiration Date Model / Serial / Lot [employer] Od25 Mm Full Wedge Augment Shoulder 15 D Baseplate Glenoid [id number] - [id number] - [id number] Implanted:Qty: 1 on 10/03/2023 by Ariel Pollard MD at [facility] Other - see comments Left: Shoulder [employer] 01/26/2028 [id number] / [id number] / [employer] Aequalis Perform 7mm Reverse Screw Bone Sterile Latex Free [id number] - [id number] - [id number] Implanted:Qty: 1 on 10/03/2023 by Ariel Pollard MD at [facility] Other - see comments Left: Shoulder [employer] 05/10/2028 VRN992 / [id number] / [employer] Tornier Aequalis Perform 39mm Reverse Shoulder Standard Sphere Aku658 - S0 - [id number] Implanted:Qty: 1 on 10/03/2023 by Ariel Pollard MD at [facility] Other - see comments Left: Shoulder [employer] 07/29/2027 [id number] / 0 / [id number] [employer] Stem Perform Sz 3 Plus Humeral Long Dwx3pl - [id number] - [id number] Implanted:Qty: 1 on 10/03/2023 by Ariel Pollard MD at [facility] Other - see comments Left: Shoulder [employer] [id number] / [id number] / [employer] Spacer Perform 9mm Humeral Sz 3/4 Wlr771 - S0 - [id number] Implanted:Qty: 1 on 10/03/2023 by Ariel Pollard MD at [facility] Other - see comments Left: Shoulder [employer] 08/07/2027 MNI227 / 0 / [id number] [employer] Insert Perform 10 Deg Ret [id number] Lcp9824 - S0 - [id number] Implanted:Qty: 1 on 10/03/2023 by Ariel Pollard MD at [facility] Other - see comments Left: Shoulder [employer] 12/25/2027 [id number] / 0 / [id number] [employer] Insert Perform 10 Deg Ret [id number] Bxq4749 - Sn/A - [id number] Implanted:Qty: 1 on 10/31/2023 by Ariel Pollard MD at [facility] Other - see comments Left: Shoulder [employer] [id number] 01/04/2028 [id number] / N/A / [id number] Description:Implant pause co mpleted prior to opening implant on sterile field [employer] Spacer Perform 9mm Humeral Sz 3/4 Shg571 - Sn/A - [id number] Implanted:Qty: 1 on 10/31/2023 by Ariel Pollard MD at [facility] Other - see comments Left: Shoulder [employer] [id number] 05/08/2028 CGS164 / N/A / [id number] Description:Implant pause co mpleted [employer] Tornier Aequalis Perform 39mm Reverse Shoulder Standard Sphere Efw389 - [id number] - [id number] Implanted:Qty: 1 on 10/31/2023 by Ariel Pollard MD at [facility] Other - see comments Left: Shoulder [employer] [id number] 07/15/2028 AEK906 / [id number] / Description:Implant pause co mpleted [employer] Aequalis Perform Reversed Od5 Mm L50 Mm Peripheral Glenoid Screw Baseplate Nonsterile Neu920 - S0 - [id number] Implanted:Qty: 1 on 10/03/2023 by Ariel Pollard MD at [facility] Screw Left: Shoulder [employer] WNC103 / 0 / [employer] Aequalis Perform Reversed 5mm 38mm Peripheral Glenoid Screw Ybb310 - S0 - [id number] Implanted:Qty: 1 on 10/03/2023 by Ariel Pollard MD at [facility] Screw Left: Shoulder [employer] [id number] / 0 / [employer] Aequalis Perform Reversed 5mm 34mm Peripheral Glenoid Screw Rtd540 - [id number] Implanted:Qty: 2 on 10/31/2023 by Ariel Pollard MD at [facility] Screw Left: Shoulder [employer] AGH604 / / Description:From instrument set [employer] Aequalis Perform Reversed Od5 Mm L54 Mm Peripheral Glenoid Screw Baseplate Nonsterile Dub102 - [id number] Implanted:Qty: 1 on 10/31/2023 by Ariel Pollard MD at [facility] Screw Left: Shoulder [employer] LHB528 / / Description:From instrument set Knee Replacement Left: Knee [employer] Aequalis Perform Reversed 5mm 26mm Peripheral Glenoid Screw Quk068 - S0 - [id number] Implanted:Qty: 1 on 10/03/2023 by Ariel Pollard MD at [facility] Left: Shoulder [employer] FSA605 / 0 / [employer] Od25 Mm Full Wedge Augment Shoulder 15 D Baseplate Glenoid Hxf619 - [id number] - [id number] Implanted:Qty: 1 on 01/07/2025 by Ariel Pollard MD at [facility] Right: Shoulder [employer] 10/08/2029 QYP767 / [id number] / [employer] Aequalis Perform Reversed Od6.5 Mm L30 Mm Central Glenoid Screw Baseplate Nonsterile Iao670 - [id number] Implanted:Qty: 1 on 01/07/2025 by Ariel Pollard MD at [facility] Right: Shoulder [employer] MWA392 / / [employer] Aequalis Perform Reversed 5mm 34mm Peripheral Glenoid Screw Ypr602 - [id number] Implanted:Qty: 2 on 01/07/2025 by Ariel Pollard MD at [facility] Right: Shoulder [employer] LBS956 / / [employer] Tornier Aequalis Perform 39mm Reverse Shoulder Standard Sphere Lxj179 - [id number] - [id number] Implanted:Qty: 1 on 01/07/2025 by Ariel Pollard MD at [facility] Right: Shoulder [employer] 07/21/2029 ATK769 / [id number] / [employer] Insert Perform 10 Deg Ret [id number] Ars3632 - [id number] - [id number] Implanted:Qty: 1 on 01/07/2025 by Ariel Pollard MD at [facility] Right: Shoulder [employer] 03/29/2028 FUC1893 / [id number] / [employer] Tray Stem Humeral Shoulder Reverse Long Tornier Perform [id number] Dwx3pl - [id number] - [id number] Implanted:Qty: 1 on 01/07/2025 by Ariel Pollard MD at [facility] Right: Shoulder [employer] 08/18/2029 DWX3PL / [id number] / Explanted Type Area [employer] Professor Device Identifier Shelf Expiration Date Model / Serial / Lot [employer] Insert Perform 10 Deg Ret [id number] - [id number] - [id number] Explanted:Qty : 1 on 10/03/2023 by Ariel Pollard MD at [facility] Other - see comments Left: Shoulder [employer] [id number] 07/01/2025 [id number] / [id number] / [employer] Aequalis Perform Reversed 5mm 34mm Peripheral Glenoid Screw Qns006 - [id number] Explanted:Qty : 1 on 10/03/2023 at [facility] Left: Shoulder [employer] XSI447 / / Procedures Procedure Name Priority Date/Time [...] in expected position. Electronically signed by: Maco Armstrogn M.D. Ariel Pollard MD IMG XR PROCEDURES Final Re sult from Last 3 Months Insurance MEDICARE [facility] [employer] MEDICARE [facility] [employer] Advance Directives For more information, please contact: [phone] * Full Code (Latest Code Status on File) Date Activated Date Inactivated Comments 01/07/2025 7:21 PM 01/08/2025 3:40 PM * Full Code Date Activated Date Inactivated Comments 10/31/2023 7:44 PM 11/05/2023 7:58 PM * Full Code Date Activated Date Inactivated Comments 10/03/2023 7:50 PM 10/04/2023 4:31 PM Care Teams Database Administrator Relationship Specialty Start Date End Date Liliam Gregory MD [address] [place] [address] PCP - General Family Practice 03/01/23
[2025-06-19 08:56] LABS: Hematocrit 38.8 % (42.0-52.0); Hemoglobin 12.9 g/dL (14.0-18.0); Immature Granulocyte Percent A 0.4 % (0-0.5); Lymphocytes Absolute Auto 2.18 K/mm3 (0.9-3.2); Mean Corpuscular HGB Conc 33.2 g/dl (32-36); Mean Corpuscular Hemoglobin 29.4 pg (26-34); Mean Corpuscular Volume 88.4 fl (80-100); Nucleated Red Blood Cells Absolute Auto 0.000 K/mm3 (0.0-0.012); Nucleated Red Blood Cells Perc 0.0 % (0.0-0.2); Platelet Count Result 330 k/mm3 (150-375); Red Blood Count 4.39 M/mm3 (4.6-6.20); White Blood Count 7.8 K/mm3 (4.5-10.0)
[2025-06-19 09:38] LABS: Hemoglobin A1C 5.6 % (<5.7)
[2025-06-19 09:40] LABS: Alanine Aminotransferase 15 U/L (6-50); Albumin Level 4.4 g/dL (3.5-5.1); Alkaline Phosphatase 70 U/L (38-126); Anion Gap 10 mmol/L (4-12); Aspartate Amino Transferase 35 U/L (17-59); Bilirubin,Total 0.6 mg/dL (0.2-1.3); Blood Urea Nitrogen 15 mg/dL (9-20); Calcium 9.3 mg/dL (8.4-10.2); Carbon Dioxide 21 mmol/L (22-30); Chloride 94 mmol/L (98-107); Cholesterol 205 mg/dL (0-200); Estimated Glomerular Filt Rate > 60; Glucose 107 mg/dL (65-110); HDL Direct 82 mg/dL; Potassium 4.5 mmol/L (3.4-5.0); Sodium 125 mmol/L (137-145); Total Protein 7.9 g/dL (6.3-8.2); Triglycerides 64 mg/dL (<150)
== END 2025-06-19 08:25 | disposition home or self-care (01) ==
LOC: ANHLAB 08:26
PROVIDERS: PCP Family Medicine; Visit Provider Nurse Practitioner Family
DX: E78.5 Hyperlipidemia, unspecified (principal); R73.03 Prediabetes; I10 Essential (primary) hypertension
CPT/HCPCS: 36415; 80053; 80061; 83036; 85025

== ENCOUNTER 2025-08-23 13:30 | Emergency (ER) | payer MEDICARE, SELFPAY ==
[2025-08-23] VITALS (26 sets, daily range): BP systolic 95–135; BP diastolic 59–72; PULSE 88–107; RESP 15–21; TEMP 36.9; O2SAT 93–99
--- NOTE | ~2025-08-23 | CT_ITS ---
CT abdomen pelvis w con Clinical History: lower abd pain, weight loss, diaphoresis . Comparison: CT abdomen and pelvis 10/05/2024 Technique: Axial images lung bases to symphysis pubis IV contrast information not listed in PACS Coronal, sagittal reformats CT images acquired with automatic exposure control for dose reduction DLP: 698 mGy-cm Findings: Lung bases: Clear. Visualized heart and pericardium: Coronary artery calcifications. Liver: Unremarkable. Gallbladder: Unremarkable. Spleen: Unremarkable. Pancreas: Unremarkable. Adrenal glands: Unremarkable. Kidneys: Right kidney- No hydronephrosis. No renal stones. Left kidney- No hydronephrosis. No renal stones. Distal esophagus/stomach: Gastric antral wall thickening. Small bowel loops: Duodenal diverticula, with surrounding stranding. Colon: Diverticula. Sigmoid wall thickening. Normal RLQ appendix. Nodes: No enlarged nodes. Peritoneum: No ascites. No free air. Urinary bladder: Unremarkable. Prostate: Unremarkable. Bones: No acute bony abnormality. Soft tissues: Unremarkable. Aorta: No aneurysm or dissection. Atherosclerotic disease. IVC: Unremarkable. Main portal vein/SMV/splenic vein: Patent. IMPRESSION: 1. Gastric antritis and/or malignancy. Recommend endoscopy. 2. Duodenal diverticulitis and/or contained ulcer perforation. 3. Sigmoid wall thickening likely chronic diverticular disease but recommend colonoscopy to exclude lesion. Reviewed, dictated and finalized at location R. IMPRESSION: 1. Gastric antritis and/or malignancy. Recommend endoscopy. 2. Duodenal diverticulitis and/or contained ulcer perforation. 3. Sigmoid wall thickening likely chronic diverticular disease but recommend c olonoscopy to exclude lesion.
--- NOTE | ~2025-08-23 | XR_ITS ---
EXAMINATION: XR abdomen/kub 1V, 08/23/2025 14:15 CDT HISTORY: constipation abd pain trouble eating x 2 wks COMPARISON: No comparisons available. Technique: 3 view. Findings: Moderate fecal content, no dilated bowel loops. No free air. No abnormal calcifications No acute osseous abnormality. Retained contrast noted in the renal collecting systems and bladder. Impression: 1. No acute abnormality. Reviewed, dictated and finalized at location P. Impression: 1. No acute abnormality.
--- NOTE | 2025-08-23 13:41 | ED.ABDPAIN ---
HPI - Abdominal Pain General Chief Complaint: Abdominal Pain <Christiano Cabral APRN - Last Filed: 08/23/25 13:42> Stated Complaint: Abd pain, trouble eating, weight loss (18lb) <Christiano Cabral APRN - Last Filed: 08/23/25 13:42> Time Seen by Provider: 08/23/25 16:20 <Christiano Cabral APRN - Last Filed: 08/23/25 13:42> Focused HPI: 70-year-old male presents ER complaining of lower abdominal pain, constipation for 10 days. He denies blood in stools. Admits to a 10 lb weight loss since onset of symptoms. States pain is worse when bending forward. Has had a recent colonoscopy, but does not know the results. Denies nausea, vomiting or GENERAL: Well-appearing, well-nourished, and in no acute distress. HEAD: Normocephalic, atraumatic. CHEST: Clear to auscultation. No respiratory distress. HEART: Regular rate and rhythm. NEURO: Alert and oriented x3. Patient screened in triage and initial orders placed. Additional care and disposition to be based upon diagnostic testing and treatment. <Christiano Cabral APRN - Last Filed: 08/23/25 13:42> Limitations: no limitations <Chris Farris MD - Last Filed: 08/23/25 19:20> History of Present Illness HPI narrative: 70-year-old with a history of hyperlipidemia presents to the ER with a complains of lower abdominal pain which has been ongoing for last 2 weeks he states that he is constipated. Denies any fever or chills. No history of nausea or vomiting. Patient states he had a colonoscopy 2 years ago which was normal. <Chris Farris MD - Last Filed: 08/23/25 19:20> MD elicited complaint: abdominal pain <Chris Farris MD - Last Filed: 08/23/25 19:20> Pertinent past history: constipation <Chris Farris MD - Last Filed: 08/23/25 19:20> Onset (ago): week(s) (2) <Chris Farris MD - Last Filed: 08/23/25 19:20> Pain Consistency: constant <Chris Farris MD - Last Filed: 08/23/25 19:20> Location: suprapubic <Chris Farris MD - Last Filed: 08/23/25 19:20> Severity: moderate <Chris Farris MD - Last Filed: 08/23/25 19:20> Quality: aching <Chris Farris MD - Last Filed: 08/23/25 19:20> Radiation: none <Chris Farris MD - Last Filed: 08/23/25 19:20> Exacerbating factors: nothing <Chris Farris MD - Last Filed: 08/23/25 19:20> Relieving factors: nothing <Chris Farris MD - Last Filed: 08/23/25 19:20> Associated symptoms: denies other symptoms <Chris Farris MD - Last Filed: 08/23/25 19:20> Related Data Home Medications: Home Medications ?Medication ?Instructions ?Recorded ?Confirmed ?Last Taken ?Type ascorbate calcium (vitamin C) 500 500 mg PO DAILY 03/03/20 06/11/25 09/11/21 History mg tablet aspirin 81 mg tablet,delayed 81 mg PO DAILY 03/03/20 06/11/25 09/07/21 History release (Adult Low Dose Aspirin) Held on 09/14/21. Instructions: Resume on 09/20/21. multivit,Ca,min-iron 8 mg-folic 1 tablet PO .QD 03/03/20 06/11/25 09/11/21 History acid 200 mcg-lycopene 600 mcg tablet (Centrum Men) Held on 09/14/21. Instructions: Resume on 09/20/21. potassium gluconate 595 mg (99 mg) 595 mg PO DAILY 03/03/20 06/11/25 09/11/21 History tablet vitamin B comp with C no.4 150 mg 1 tablet PO .QD 03/03/20 06/11/25 09/11/21 History tablet vitamin B12 500 mcg-folic acid 400 1 tablet PO DAILY 03/03/20 06/11/25 09/11/21 History mcg tablet Held on 09/14/21. Instructions: Resume on 09/20/21. <Christiano Cabral APRN - Last Filed: 08/23/25 13:42> Allergies/Adverse Reactions: Allergies Allergy/AdvReac Type Severity Reaction Status Date / Time No Known Allergies Allergy Verified 08/23/25 13:32 <Christiano Cabral APRN - Last Filed: 08/23/25 13:42> Review of Systems Review of Systems: All systems reviewed & are unremarkable except as noted in HPI and below <Chris Farris MD - Last Filed: 08/23/25 19:20> Constitutional: Constitutional: Reports no additional constitutional complaints <Chris Farris MD - Last Filed: 08/23/25 19:20> Eyes: Eyes: Reports no additional eye complaints <Chris Farris MD - Last Filed: 08/23/25 19:20> ENT: Reports system reviewed and no additional complaints, except as documented <Chris Farris MD - Last Filed: 08/23/25 19:20> Cardiovascular: Cardiovascular: Reports no additional cardiovascular complaints <Chris Farris MD - Last Filed: 08/23/25 19:20> Respiratory: Respiratory: Reports no additional respiratory complaints <Chris Farris MD - Last Filed: 08/23/25 19:20> Gastrointestinal: Gastrointestinal: Reports as per HPI <Chris Farris MD - Last Filed: 08/23/25 19:20> Musculoskeletal: Musculoskeletal: Reports no additional musculoskeletal complaints <Chris Farris MD - Last Filed: 08/23/25 19:20> Integumentary/Breasts: Skin/Breast: Reports system reviewed and no additional complaints, except as docu <Chris Farris MD - Last Filed: 08/23/25 19:20> [facility] Past Medical History Medical History: Medical History Hydrocele, right Normal colonoscopy (~04/24/18) Dr Hill, no polyps. Repeat in 10 yrs. Essential (primary) hypertension Mixed hyperlipidemia <Christiano Cabral APRN - Last Filed: 08/23/25 13:42> Surgical History Surgical History: Surgical History History of left knee replacement (~11/2017) History of left shoulder replacement (~10/03/23) Hx of cystoscopy (~03/2021) <Christiano Cabral APRN - Last Filed: 08/23/25 13:42> Social History Social History: Social History Social History: Single, lives alone. 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 HEAD: Normocephalic, atraumatic. EYES: PERRLA and EOMI. ENT: Nares clear, no rhinorrhea or epistaxis. Mucous membranes moist. NECK: Supple. CHEST: Clear to auscultation. No respiratory distress. HEART: Regular rate and rhythm. No murmur heard. Normal peripheral pulses. ABDOMEN: Soft, mild tenderness in the lower abdomen , nondistended, normal active bowel sounds. EXTREMITIES: Normal range of motion. No edema. SKIN: Warm, dry, no rash. NEURO: No focal deficits. Alert and oriented x3. PSYCH: Normal mood and affect. <Chris Farris MD - Last Filed: 08/23/25 19:20> Course Course Emergency Course: Informed patient about his lab work, CT findings recommended him for admission. 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 I have informed him that it could be potentially very dangerous to his life and he may have severe sepsis with the perforation . Patient states that he want to take chances he signed out AMA <Chris Farris MD - Last Filed: 08/23/25 19:20> Vital Signs Vital signs: Vital Signs Temperature 36.9 C 08/23/25 13:34 Pulse Rate 107 H 08/23/25 13:34 Respiratory Rate 18 08/23/25 13:34 Blood Pressure 135/71 08/23/25 13:34 Pulse Oximetry 97 08/23/25 13:34 Temperature 36.9 C 08/23/25 13:34 Pulse Rate 88 08/23/25 17:46 Respiratory Rate 20 08/23/25 17:46 Blood Pressure 122/63 08/23/25 17:46 Pulse Oximetry 97 08/23/25 17:46 <Christiano Cabral, FRAME FEEDER - Last Filed: 08/23/25 13:42> Vital Signs Temperature 36.9 C 08/23/25 13:34 Pulse Rate 107 H 08/23/25 13:34 Respiratory Rate 18 08/23/25 13:34 Blood Pressure 135/71 08/23/25 13:34 Pulse Oximetry 97 08/23/25 13:34 Temperature 36.9 C 08/23/25 13:34 Pulse Rate 88 08/23/25 17:46 Respiratory Rate 20 08/23/25 17:46 Blood Pressure 122/63 08/23/25 17:46 Pulse Oximetry 97 08/23/25 17:46 <Chris Farris MD - Last Filed: 08/23/25 19:20> MDM - Abdominal Pain Differential Diagnosis Differential diagnosis: Likely abdominal pain, diverticulitis and small bowel obstruction <Chris Farris MD - Last Filed: 08/23/25 19:20> Medical Records Attestation: I reviewed the patient's medical records. <Chris Farris MD - Last Filed: 08/23/25 19:20> Lab Data Attestation: I reviewed the patient's lab results. <Chris Farris MD - Last Filed: 08/23/25 19:20> Result diagrams: 08/23/25 14:53 08/23/25 14:53 <Christiano A. Keen, FRAME FEEDER - Last Filed: 08/23/25 13:42> Labs: Lab Results 08/23/25 08/23/25 Range/Units 14:53 15:29 WBC 5.9 (4.5-10.0) K/mm3 RBC 4.03 L (4.6-6.20) M/mm3 Hgb 12.1 L (14.0-18.0) g/dL Hct 36.9 L (42.0-52.0) % MCV 91.6 (80-100) fl MCH 30.0 (26-34) pg MCHC 32.8 (32-36) g/dl RDW 13.7 (11.5-14.5) % Plt Count 368 (150-375) k/mm3 MPV 8.0 (7.4-10.4) fl Immature Gran % (Auto) 0.3 (0-0.5) % Neut % (Auto) 66.9 (45.5-73.1) % Lymph % (Auto) 22.5 (18.3-44.2) % [place] % (Auto) 8.4 (2.6-8.5) % Eos % (Auto) 1.4 (0-4.4) % Baso % (Auto) 0.5 (0.2-1.2) % Lymph # (Auto) 1.32 (0.9-3.2) K/mm3 [place] # (Auto) 0.5 (0.1-0.6) K/mm3 Eos # (Auto) 0.1 (0-0.3) K/mm3 Baso # (Auto) 0.0 (0.0-0.1) K/mm3 Abs Immat Gran (auto) 0.02 (0.00-0.031) K/mm3 Absolute Neuts (auto) 3.9 (1.3-6.7) K/mm3 Absolute Nucleated RBC 0.000 (0.0-0.012) K/mm3 Nucleated RBC % 0.0 (0.0-0.2) % Sodium 132 L (137-145) mmol/L Potassium 3.3 L (3.4-5.0) mmol/L Chloride 100 (98-107) mmol/L Carbon Dioxide 20 L (22-30) mmol/L Anion Gap 12 (4-12) mmol/L BUN 27 H D (9-20) mg/dL Creatinine 1.57 H (0.7-1.3) mg/dL Estim Creat Clear Calc 35 ml/min Estimated GFR 44 L (59 - ) Glucose 117 H (65-110) mg/dL Calcium 11.0 H (8.4-10.2) mg/dL Total Bilirubin 0.2 (0.2-1.3) mg/dL AST 35 (17-59) U/L ALT 14 (6-50) U/L Alkaline Phosphatase 69 (38-126) U/L Total Protein 7.1 (6.3-8.2) g/dL Albumin 3.8 (3.5-5.1) g/dL Lipase 85 (23-300) U/L Urine Color Yellow (Yellow) Urine Appearance Clear (Clear) Urine pH 5.0 (5.0-9.0) Ur Specific [place] > 1.045 H (1.001-1.035) Urine Protein Negative (Negative) mg/dL Urine Glucose (UA) Negative (Negative) mg/dL Urine Ketones Trace H (Negative) mg/dL Ur Blood (Man) Negative (Negative) Urine Nitrate Negative (Negative) Urine Bilirubin Negative (Negative) Urine Urobilinogen 0.2 (<2.0) mg/dL Leukocyte Esterase Rfl Negative (Negative) NONA/UL <Christiano Cabral, FRAME FEEDER - Last Filed: 08/23/25 13:42> Lab Results 08/23/25 08/23/25 Range/Units 14:53 15:29 WBC 5.9 (4.5-10.0) K/mm3 RBC 4.03 L (4.6-6.20) M/mm3 Hgb 12.1 L (14.0-18.0) g/dL Hct 36.9 L (42.0-52.0) % MCV 91.6 (80-100) fl MCH 30.0 (26-34) pg MCHC 32.8 (32-36) g/dl RDW 13.7 (11.5-14.5) % Plt Count 368 (150-375) k/mm3 MPV 8.0 (7.4-10.4) fl Immature Gran % (Auto) 0.3 (0-0.5) % Neut % (Auto) 66.9 (45.5-73.1) % Lymph % (Auto) 22.5 (18.3-44.2) % [place] % (Auto) 8.4 (2.6-8.5) % Eos % (Auto) 1.4 (0-4.4) % Baso % (Auto) 0.5 (0.2-1.2) % Lymph # (Auto) 1.32 (0.9-3.2) K/mm3 [place] # (Auto) 0.5 (0.1-0.6) K/mm3 Eos # (Auto) 0.1 (0-0.3) K/mm3 Baso # (Auto) 0.0 (0.0-0.1) K/mm3 Abs Immat Gran (auto) 0.02 (0.00-0.031) K/mm3 Absolute Neuts (auto) 3.9 (1.3-6.7) K/mm3 Absolute Nucleated RBC 0.000 (0.0-0.012) K/mm3 Nucleated RBC % 0.0 (0.0-0.2) % Sodium 132 L (137-145) mmol/L Potassium 3.3 L (3.4-5.0) mmol/L Chloride 100 (98-107) mmol/L Carbon Dioxide 20 L (22-30) mmol/L Anion Gap 12 (4-12) mmol/L BUN 27 H D (9-20) mg/dL Creatinine 1.57 H (0.7-1.3) mg/dL Estim Creat Clear Calc 35 ml/min Estimated GFR 44 L (59 - ) Glucose 117 H (65-110) mg/dL Calcium 11.0 H (8.4-10.2) mg/dL Total Bilirubin 0.2 (0.2-1.3) mg/dL AST 35 (17-59) U/L ALT 14 (6-50) U/L Alkaline Phosphatase 69 (38-126) U/L Total Protein 7.1 (6.3-8.2) g/dL Albumin 3.8 (3.5-5.1) g/dL Lipase 85 (23-300) U/L Urine Color Yellow (Yellow) Urine Appearance Clear (Clear) Urine pH 5.0 (5.0-9.0) Ur Specific [place] > 1.045 H (1.001-1.035) Urine Protein Negative (Negative) mg/dL Urine Glucose (UA) Negative (Negative) mg/dL Urine Ketones Trace H (Negative) mg/dL Ur Blood (Man) Negative (Negative) Urine Nitrate Negative (Negative) Urine Bilirubin Negative (Negative) Urine Urobilinogen 0.2 (<2.0) mg/dL Leukocyte Esterase Rfl Negative (Negative) NONA/UL <Chris Farris MD - Last Filed: 08/23/25 19:20> Imaging Data Radiologist's impression: ITS Impressions Abdomen/Pelvis CT 08/23/25 14:32 IMPRESSION: 1. Gastric antritis and/or malignancy. Recommend endoscopy. 2. Duodenal diverticulitis and/or contained ulcer perforation. 3. Sigmoid wall thickening likely chronic diverticular disease but recommend colonoscopy to exclude lesion. Abdomen X-Ray 08/23/25 14:45 Impression: 1. No acute abnormality. <Christiano Cabral APRN - Last Filed: 08/23/25 13:42> ITS Impressions Abdomen/Pelvis CT 08/23/25 14:32 IMPRESSION: 1. Gastric antritis and/or malignancy. Recommend endoscopy. 2. Duodenal diverticulitis and/or contained ulcer perforation. 3. Sigmoid wall thickening likely chronic diverticular disease but recommend colonoscopy to exclude lesion. Abdomen X-Ray 08/23/25 14:45 Impression: 1. No acute abnormality. <Chris Farris MD - Last Filed: 08/23/25 19:20> Discharge Plan Discharge Clinical Impression: Diverticulitis <Christiano Cabral APRN - Last Filed: 08/23/25 13:42> Patient Disposition: Left Against Medical Advice <Christiano Cabral APRN - Last Filed: 08/23/25 13:42> Condition: Stable <Christiano Cabral APRN - Last Filed: 08/23/25 13:42> Instructions: Antibiotic Form <ADWOA Ramos Last Filed: 08/23/25 13:42> Patient Language: Italian <Christiano Cabral APRN - Last Filed: 08/23/25 13:42> Prescriptions: No Action diclofenac sodium 100 mg tablet extended release 24 hr 100 mg PO DAILY Qty: 30 3RF Centrum Men 8 mg iron- 200 mcg-600 mcg tablet 1 tablet PO .QD aspirin [Adult Low Dose Aspirin] 81 mg tablet,delayed release (DR/EC) 81 mg PO DAILY potassium gluconate 595 mg (99 mg) tablet 595 mg PO DAILY vitamin B comp with C no.4 150 mg tablet 1 tablet PO .QD vitamin R07-wtuaa acid 500-400 mcg tablet 1 tablet PO DAILY Rx Instructions: administer with a meal ascorbate calcium (vitamin C) 500 mg tablet 500 mg PO DAILY simvastatin 20 mg tablet See Rx Instructions .ROUTE .COMPLEX Qty: 90 1RF Dose Instruction: TAKE 1 TABLET BY MOUTH EVERY DAY Rx Instructions: TAKE 1 TABLET BY MOUTH EVERY DAY lisinopril-hydrochlorothiazide 20-25 mg tablet See Rx Instructions .ROUTE .COMPLEX Qty: 90 1RF Dose Instruction: TAKE 1 TABLET BY MOUTH EVERY DAY Rx Instructions: TAKE 1 TABLET BY MOUTH EVERY DAY <Christiano Cabral APRN - Last Filed: 08/23/25 13:42> Follow-up/Referrals: Stacey Gregory MD [Primary Care Provider, Family Practice] <Christiano Cabral APRN - Last Filed: 08/23/25 13:42> Time of Disposition: 19:20 <Christiano Cabral APRN - Last Filed: 08/23/25 13:42> 19:20 <Chris Farris MD - Last Filed: 08/23/25 19:20>
--- OUTSIDE RECORDS SUMMARY | 2025-08-23 14:28 | XMS_ITS | Clinical Summary ---
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 Active oxyCODONE (ROXICODONE) 5 [...] 10/03/2023 Osteoarthritis of left glenohumeral joint 2022 Surgical History Surgery Date Site/Laterality Comments KNEE [...] Comments Blood Pressure 124/65 01/08/2025 7:21 AM ENTRY WRITER Pulse 82 01/08/2025 7:21 AM ENTRY WRITER Temperature 36.6 C (97.8 F) 01/08/2025 7:21 AM ENTRY WRITER Respiratory Rate 18 01/08/2025 7:21 AM ENTRY WRITER Oxygen Saturation 98% 01/08/2025 7:21 AM ENTRY WRITER Inhaled Oxygen Concentration - - Weight 80.3 kg (177 lb) 01/07/2025 11:16 AM ENTRY WRITER Height 162.6 cm (5' 4) 12/31/2024 12:39 PM ENTRY WRITER Body Mass Index 30.38 12/31/2024 12:39 PM ENTRY WRITER Plan of Treatment Health Maintenance Due Date Last Done Comments Colon Cancer Screening-Colonoscopy 1955 Depression Screening 1955 Hepatitis C Screening 1956 Prostate Cancer Screening-PSA 1956 Hepatitis B Screening 1974 Well Visit 65+ 2021 Pneumococcal vaccine 65+ (2 of 2 - PCV) 01/08/2023 01/08/2022 Covid-19 Vaccine (4 - 2024-2 6 season) 2025 10/27/2021, 01/28/2021, 12/31/2020 Zoster Vaccine (2 of 2) 07/24/2025 05/29/2025 Fall Risk Assessment 01/08/2026 01/08/2025 DTaP/Tdap/Td Vaccine (2 - Td or Tdap) 12/19/2034 12/19/2024 Influenza Vaccine Completed 08/07/2025, , 01/08/2022, Additional history exists Medical Devices Implanted Type Area Head Swamper Device Identifier Shelf Expiration Date Model / Serial / Lot [employer] Od25 Mm Full Wedge Augment Shoulder 15 D Baseplate Glenoid [id number] - [id number] - [id number] Implanted:Qty: 1 on 10/03/2023 by Ariel Pollard MD at [facility] Other - see comments Left: Shoulder [employer] 01/26/2028 [id number] / [id number] / [employer] Aequalis Perform 7mm Reverse Screw Bone Sterile Latex Free [id number] - [id number] - [id number] Implanted:Qty: 1 on 10/03/2023 by Ariel Pollard MD at [facility] Other - see comments Left: Shoulder [employer] 05/10/2028 [id number] / [id number] / [employer] Tornier Aequalis Perform 39mm Reverse Shoulder Standard Sphere Hcq200 - S0 - [id number] Implanted:Qty: 1 on 10/03/2023 by Ariel Pollard MD at [facility] Other - see comments Left: Shoulder [employer] 07/29/2027 [id number] / 0 / [id number] [employer] Stem Perform Sz 3 Plus Humeral Long Dwx3pl - [id number] - [id number] Implanted:Qty: 1 on 10/03/2023 by Airel Pollard MD at [facility] Other - see comments Left: Shoulder [employer] [id number] / [id number] / [employer] Spacer Perform 9mm Humeral Sz 3/4 Ifj794 - S0 - [id number] Implanted:Qty: 1 on 10/03/2023 by Ariel Pollard MD at [facility] Other - see comments Left: Shoulder [employer] 08/07/2027 [id number] / 0 / [id number] [employer] Insert Perform 10 Deg Ret [id number] - S0 - [id number] Implanted:Qty: 1 on 10/03/2023 by Ariel Pollard MD at [facility] Other - see comments Left: Shoulder [employer] 12/25/2027 [id number] / 0 / [id number] [employer] Insert Perform 10 Deg Ret [id number] [id number] - Sn/A - [id number] Implanted:Qty: 1 on 10/31/2023 by Ariel Pollard MD at [facility] Other - see comments Left: Shoulder [employer] [id number] 01/04/2028 [id number] / N/A / [id number] Description:Implant pause co mpleted prior to opening implant on sterile field [employer] Spacer Perform 9mm Humeral Sz 3/4 Vqa573 - Sn/A - [id number] Implanted:Qty: 1 on 10/31/2023 by Ariel Pollard MD at [facility] Other - see comments Left: Shoulder [employer] [id number] 05/08/2028 [id number] / N/A / [id number] Description:[facility] [employer] Tornier Aequalis Perform 39mm Reverse Shoulder Standard Sphere [id number] - [id number] - [id number] Implanted:Qty: 1 on 10/31/2023 by Ariel Pollard MD at [facility] Other - see comments Left: Shoulder [employer] [id number] 07/15/2028 [id number] / [id number] / Description:Implant pause co [facility] [employer] Aequalis Perform Reversed Od5 Mm L50 Mm Peripheral Glenoid Screw Baseplate Nonsterile Dhb137 - S0 - [id number] Implanted:Qty: 1 on 10/03/2023 by Ariel Pollard MD at [facility] Screw Left: Shoulder [employer] [id number] / 0 / [employer] Aequalis Perform Reversed 5mm 38mm Peripheral Glenoid Screw Lju230 - S0 - [id number] Implanted:Qty: 1 on 10/03/2023 by Ariel Pollard MD at [facility] Screw Left: Shoulder [employer] CFV926 / 0 / [employer] Aequalis Perform Reversed 5mm 34mm Peripheral Glenoid Screw Hpj257 - [id number] Implanted:Qty: 2 on 10/31/2023 by Ariel Pollard MD at [facility] Screw Left: Shoulder [employer] [id number] / / Description:From instrument set [employer] Aequalis Perform Reversed Od5 Mm L54 Mm Peripheral Glenoid Screw Baseplate Nonsterile Zhi360 - [id number] Implanted:Qty: 1 on 10/31/2023 by Ariel Pollard MD at [facility] Screw Left: Shoulder [employer] [id number] / / Description:From instrument set Knee Replacement Left: Knee [employer] Aequalis Perform Reversed 5mm 26mm Peripheral Glenoid Screw Gyk728 - S0 - [id number] Implanted:Qty: 1 on 10/03/2023 by Ariel Pollard MD at [facility] Left: Shoulder [employer] [id number] / 0 / [employer] Od25 Mm Full Wedge Augment Shoulder 15 D Baseplate Glenoid Tlq531 - [id number] - [id number] Implanted:Qty: 1 on 01/07/2025 by Ariel Pollard MD at [facility] Right: Shoulder [employer] 10/08/2029 [id number] / [id number] / [employer] Aequalis Perform Reversed Od6.5 Mm L30 Mm Central Glenoid Screw Baseplate Nonsterile Kkb064 - [id number] Implanted:Qty: 1 on 01/07/2025 by Ariel Pollard MD at [facility] Right: Shoulder [employer] [id number] / / [employer] Aequalis Perform Reversed 5mm 34mm Peripheral Glenoid Screw Buw789 - [id number] Implanted:Qty: 2 on 01/07/2025 by Ariel Pollard MD at [facility] Right: Shoulder [employer] LQS430 / / [employer] Tornier Aequalis Perform 39mm Reverse Shoulder Standard Sphere Anu010 - [id number] - [id number] Implanted:Qty: 1 on 01/07/2025 by Ariel Pollard MD at [facility] Right: Shoulder [employer] 07/21/2029 OXR422 / [id number] / [employer] Insert Perform 10 Deg Ret Dmm4715 Eqj1183 - [id number] - [id number] Implanted:Qty: 1 on 01/07/2025 by Ariel Pollard MD at [facility] Right: Shoulder [employer] 03/29/2028 BTS1051 / [id number] / [employer] Tray Stem Humeral Shoulder Reverse Long Tornier Perform [id number] Dwx3pl - [id number] - [id number] Implanted:Qty: 1 on 01/07/2025 by Ariel Pollard MD at [facility] Right: Shoulder [employer] 08/18/2029 [id number] / [id number] / Explanted Type Area Head Swamper Device Identifier Shelf Expiration Date Model / Serial / Lot [employer] Insert Perform 10 Deg Ret [id number] - [id number] - [id number] Explanted:Qty : 1 on 10/03/2023 by Ariel Pollard MD at [facility] Other - see comments Left: Shoulder [employer] [id number] 07/01/2025 [id number] / [id number] / [employer] Aequalis Perform Reversed 5mm 34mm Peripheral Glenoid Screw Vez790 - [id number] Explanted:Qty : 1 on 10/03/2023 at [facility] Left: Shoulder [employer] [id number] / / Insurance MEDICARE [facility] INSURANCE MEDICARE [facility] INSURANCE Advance Directives For more information, please contact: [phone] * Full Code (Latest Code Status on File) Date Activated Date Inactivated Comments 01/07/2025 7:21 PM 01/08/2025 3:40 PM * Full Code Date Activated Date Inactivated Comments 10/31/2023 7:44 PM 11/05/2023 7:58 PM * Full Code Date Activated Date Inactivated Comments 10/03/2023 7:50 PM 10/04/2023 4:31 PM Care Teams Negative Cutter Relationship Specialty Start Date End Date Liliam Gregory MD [address] [facility] [place] [address] [place] [address] PCP - General Family Practice 03/01/23
[2025-08-23 14:59] LABS: Hematocrit 36.9 % (42.0-52.0); Hemoglobin 12.1 g/dL (14.0-18.0); Immature Granulocyte Percent A 0.3 % (0-0.5); Lymphocytes Absolute Auto 1.32 K/mm3 (0.9-3.2); Mean Corpuscular HGB Conc 32.8 g/dl (32-36); Mean Corpuscular Hemoglobin 30.0 pg (26-34); Mean Corpuscular Volume 91.6 fl (80-100); Nucleated Red Blood Cells Absolute Auto 0.000 K/mm3 (0.0-0.012); Nucleated Red Blood Cells Perc 0.0 % (0.0-0.2); Platelet Count Result 368 k/mm3 (150-375); Red Blood Count 4.03 M/mm3 (4.6-6.20); White Blood Count 5.9 K/mm3 (4.5-10.0)
[2025-08-23 15:19] LABS: Alanine Aminotransferase 14 U/L (6-50); Albumin Level 3.8 g/dL (3.5-5.1); Alkaline Phosphatase 69 U/L (38-126); Anion Gap 12 mmol/L (4-12); Aspartate Amino Transferase 35 U/L (17-59); Bilirubin,Total 0.2 mg/dL (0.2-1.3); Blood Urea Nitrogen 27 mg/dL (9-20); Calcium 11.0 mg/dL (8.4-10.2); Carbon Dioxide 20 mmol/L (22-30); Chloride 100 mmol/L (98-107); Estimated CRCL calculation 35 ml/min; Estimated Glomerular Filt Rate 44; Glucose 117 mg/dL (65-110); Lipase 85 U/L (23-300); Potassium 3.3 mmol/L (3.4-5.0); Sodium 132 mmol/L (137-145); Total Protein 7.1 g/dL (6.3-8.2)
[2025-08-23 15:38] LABS: Add Urine Microscopic? NO; Appearance Urine Clear (Clear); Glucose Urine UA Negative (Negative); Leukocyte Esterase Ur Negative LEU/UL (Negative); Nitrate Urine Negative (Negative); Specific Grav Ur > 1.045 (1.001-1.035)
--- OUTSIDE RECORDS SUMMARY | 2025-08-23 16:40 | XMS_ITS | Clinical Summary ---
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 Active oxyCODONE (ROXICODONE) 5 [...] Comments Blood Pressure 124/65 01/08/2025 7:21 AM WIDE LOAD ESCORT Pulse 82 01/08/2025 7:21 AM WIDE LOAD ESCORT Temperature 36.6 C (97.8 F) 01/08/2025 7:21 AM WIDE LOAD ESCORT Respiratory Rate 18 01/08/2025 7:21 AM WIDE LOAD ESCORT Oxygen Saturation 98% 01/08/2025 7:21 AM WIDE LOAD ESCORT Inhaled Oxygen Concentration - - Weight 80.3 kg (177 lb) 01/07/2025 11:16 AM WIDE LOAD ESCORT Height 162.6 cm (5' 4) 12/31/2024 12:39 PM WIDE LOAD ESCORT Body Mass Index 30.38 12/31/2024 12:39 PM WIDE LOAD ESCORT Plan of Treatment Health Maintenance Due Date [...] history exists Medical Devices Implanted Type Area Metallurgy Teacher Device Identifier Shelf Expiration Date Model / Serial / Lot Nexus eWater Od25 Mm Full Wedge Augment Shoulder 15 D Baseplate Glenoid [id number] - [id number] - [id number] Implanted:Qty: 1 on 10/03/2023 by Ariel Pollard MD at [facility] Other - see comments Left: Shoulder [employer] 01/26/2028 [id number] / [id number] / [employer] Aequalis Perform 7mm Reverse Screw Bone Sterile Latex Free [id number] - [id number] - [id number] Implanted:Qty: 1 on 10/03/2023 by Ariel Pollard MD at [facility] Other - see comments Left: Shoulder [employer] 05/10/2028 [id number] / [id number] / [employer] Tornier Aequalis Perform 39mm Reverse Shoulder Standard Sphere Lnq238 - S0 - [id number] Implanted:Qty: 1 on 10/03/2023 by Ariel Pollard MD at [facility] Other - see comments Left: Shoulder [employer] 07/29/2027 [id number] / 0 / [id number] [employer] Stem Perform Sz 3 Plus Humeral Long Dwx3pl - [id number] - [id number] Implanted:Qty: 1 on 10/03/2023 by Ariel Pollard MD at [facility] Other - see comments Left: Shoulder [employer] [id number] / [id number] / [employer] Spacer Perform 9mm Humeral Sz 3/4 Zgg593 - S0 - [id number] Implanted:Qty: 1 on 10/03/2023 by Ariel Pollard MD at [facility] Other - see comments Left: Shoulder [employer] 08/07/2027 MCB700 / 0 / [id number] [employer] Insert Perform 10 Deg Ret [id number] - S0 - [id number] Implanted:Qty: 1 on 10/03/2023 by Ariel Pollard MD at [facility] Other - see comments Left: Shoulder [employer] 12/25/2027 [id number] / 0 / [id number] [employer] Insert Perform 10 Deg Ret [id number] Gjn3840 - Sn/A - [id number] Implanted:Qty: 1 on 10/31/2023 by Ariel Pollard MD at [facility] Other - see comments Left: Shoulder [employer] [id number] 01/04/2028 [id number] / N/A / [id number] Description:Implant pause co mpleted prior to opening implant on sterile field [employer] Spacer Perform 9mm Humeral Sz 3/4 Vfi471 - Sn/A - [id number] Implanted:Qty: 1 on 10/31/2023 by Ariel Pollard MD at [facility] Other - see comments Left: Shoulder [employer] [id number] 05/08/2028 [id number] / N/A / [id number] Description:[facility] [employer] Tornier Aequalis Perform 39mm Reverse Shoulder Standard Sphere Smz128 - [id number] - [id number] Implanted:Qty: 1 on 10/31/2023 by Ariel Pollard MD at [facility] Other - see comments Left: Shoulder [employer] [id number] 07/15/2028 [id number] / [id number] / Description:[facility]plant [facility] [employer] Aequalis Perform Reversed Od5 Mm L50 Mm Peripheral Glenoid Screw Baseplate Nonsterile Lzy891 - S0 - [id number] Implanted:Qty: 1 on 10/03/2023 by Ariel Pollard MD at [facility] Screw Left: Shoulder [employer] [id number] / 0 / [employer] Aequalis Perform Reversed 5mm 38mm Peripheral Glenoid Screw Onm909 - S0 - [id number] Implanted:Qty: 1 on 10/03/2023 by Ariel Pollard MD at [facility] Screw Left: Shoulder [employer] [id number] / 0 / [employer] Aequalis Perform Reversed 5mm 34mm Peripheral Glenoid Screw Hpn829 - [id number] Implanted:Qty: 2 on 10/31/2023 by Ariel Pollard MD at [facility] Screw Left: Shoulder [employer] [id number] / / Description:From instrument set [employer] Aequalis Perform Reversed Od5 Mm L54 Mm Peripheral Glenoid Screw Baseplate Nonsterile Uqy515 - [id number] Implanted:Qty: 1 on 10/31/2023 by Ariel Pollard MD at [facility] Screw Left: Shoulder [employer] [id number] / / Description:From instrument set Knee Replacement Left: Knee [employer] Aequalis Perform Reversed 5mm 26mm Peripheral Glenoid Screw Vmx138 - S0 - [id number] Implanted:Qty: 1 on 10/03/2023 by Ariel Pollard MD at [facility] Left: Shoulder [employer] HBQ799 / 0 / [employer] Od25 Mm Full Wedge Augment Shoulder 15 D Baseplate Glenoid Rpu577 - [id number] - [id number] Implanted:Qty: 1 on 01/07/2025 by Ariel Pollard MD at [facility] Right: Shoulder [employer] 10/08/2029 [id number] / [id number] / [employer] Aequalis Perform Reversed Od6.5 Mm L30 Mm Central Glenoid Screw Baseplate Nonsterile [id number] - [id number] Implanted:Qty: 1 on 01/07/2025 by Ariel Pollard MD at [facility] Right: Shoulder [employer] QUN065 / / [employer] Aequalis Perform Reversed 5mm 34mm Peripheral Glenoid Screw Pzz088 - [id number] Implanted:Qty: 2 on 01/07/2025 by Ariel Pollard MD at [facility] Right: Shoulder [employer] VBC591 / / [employer] Tornier Aequalis Perform 39mm Reverse Shoulder Standard Sphere Uhb442 - [id number] - [id number] Implanted:Qty: 1 on 01/07/2025 by Ariel Pollard MD at [facility] Right: Shoulder [employer] 07/21/2029 LBE406 / [id number] / [employer] Insert Perform 10 Deg Ret Cns8240 Byx9754 - [id number] - [id number] Implanted:Qty: 1 on 01/07/2025 by Ariel Pollard MD at [facility] Right: Shoulder [employer] 03/29/2028 LMT9656 / [id number] / [employer] Tray Stem Humeral Shoulder Reverse Long Tornier Perform [id number] Dwx3pl - [id number] - [id number] Implanted:Qty: 1 on 01/07/2025 by Ariel Pollard MD at [facility] Right: Shoulder [employer] 08/18/2029 DWX3PL / [id number] / Explanted Type Area Metallurgy Teacher Device Identifier Shelf Expiration Date Model / Serial / Lot [employer] Insert Perform 10 Deg Ret Ohd0783 Trb4741 - [id number] - [id number] Explanted:Qty : 1 on 10/03/2023 by Ariel Pollard MD at [facility] Other - see comments Left: Shoulder [employer] [id number] 07/01/2025 ISY1034 / [id number] / [employer] Aequalis Perform Reversed 5mm 34mm Peripheral Glenoid Screw Tun550 - [id number] Explanted:Qty : 1 on 10/03/2023 at [facility] Left: Shoulder [employer] [id number] / / Insurance MEDICARE [facility] [employer] MEDICARE [facility] [facility] Advance Directives For more information, please contact: [phone] * Full Code (Latest Code Status on File) Date Activated Date Inactivated Comments 01/07/2025 7:21 PM 01/08/2025 3:40 PM * Full Code Date Activated Date Inactivated Comments 10/31/2023 7:44 PM 11/05/2023 7:58 PM * Full Code Date Activated Date Inactivated Comments 10/03/2023 7:50 PM 10/04/2023 4:31 PM Care Teams Kiss Mixer Relationship Specialty Start Date End Date Liliam Gregory MD [address] [facility] [place] [address] [place] [address] PCP - General Family Practice 03/01/23
[2025-08-23] MEDS: SODIUM CHLORIDE 0.9% IV 1,000 ML 999 ML IV CONT (16:45)
[2025-08-27 14:27] LABS: Estimated CRCL calculation 31 ml/min; Estimated Glomerular Filt Rate 38
== END 2025-08-24 12:00 | disposition left against medical advice (07) ==
PROVIDERS: Nurse Practitioner Family; Emergency Provider Family Medicine; PCP Family Medicine
DX: K57.00 Diverticulitis of small intestine with perforation and abscess without bleeding (principal); I10 Essential (primary) hypertension; E78.2 Mixed hyperlipidemia; Z96.652 Presence of left artificial knee joint; Z96.612 Presence of left artificial shoulder joint
CPT/HCPCS: 36415; 74018; 74177; 80053; 81003; 82565; 83690; 85025; 96360; 99284; J7030; Q9967

== ENCOUNTER 2025-08-25 09:18 | Emergency (ER) | payer MEDICARE, SELFPAY ==
--- NOTE | ~2025-08-25 | CT_ITS ---
EXAMINATION: CT abdomen pelvis w con DATE: 08/25/2025 10:41 INDICATION: Worsening abdominal pain. TECHNIQUE: Computed tomography (CT) of the abdomen and pelvis was performed with 100 mL Omnipaque 350 intravenous contrast. Automated exposure control and iterative reconstruction technique were employed. The dose-length product was 641.97 mGy-cm. COMPARISON: CT abdomen and pelvis 08/23/2025, 10/05/2024 FINDINGS: The visualized portions of the lung bases demonstrate mild atelectasis. No pleural effusion. The heart size is normal. There are coronary artery calcifications. No pericardial effusion. The liver, gallbladder, spleen, pancreas, adrenal glands, and left kidney are normal. There is cortical thinning of right kidney. The prostate is mildly enlarged. There are bilateral inguinal hernias containing fat. There is a diverticulum of the second portion of the duodenum. There is an ulcer of the gastric antrum. There are scattered diverticula in the colon. There is mild wall thickening of the sigmoid colon. The appendix is normal. There are no dilated loops of bowel. There are no pathologically enlarged lymph nodes. There is no free intraperitoneal fluid. There is severe thoracic and lumbar spondylosis. Thoracic dextroscoliosis is noted. IMPRESSION: 1. Ulcer of the gastric antrum. 2. Chronic mild wall thickening of the sigmoid colon, likely chronic diverticulitis. Reviewed, dictated and finalized at location E. IMPRESSION: 1. Ulcer of the gastric antrum. 2. Chronic mild wall thickening of the sigmoid colon, likely chronic diverticul itis.
[2025-08-25 09:32] VITALS: BP 141/71; PULSE 88; RESP 14; TEMP 36.4; O2SAT 99
--- NOTE | 2025-08-25 09:53 | ED.GENADULT ---
HPI - General Adult General Chief complaint: Abdominal Pain Stated complaint: abd pain Time Seen by Provider: 08/25/25 09:23 History of Present Illness HPI narrative: 70-year-old male presents to the emergency department for evaluation for persistent abdominal pain. Patient was evaluated in the emergency department on 08/23 and diagnosed with gastric antritis or malignancy, and diverticulitis/ contained ulcer perforation. Patient was offered admission at that time and patient declined. Patient did sign out AMA. Patient was not discharged on any antibiotics. Patient presents emergency department today complaining of worsening abdominal pain. Time of evaluation patient does not appear to be in any distress. Minimal tenderness to palpation. Related Data Home Medications ?Medication ?Instructions ?Recorded ?Confirmed ?Last Taken ?Type ascorbate calcium (vitamin C) 500 500 mg PO DAILY 03/03/20 06/11/25 09/11/21 History mg tablet aspirin 81 mg tablet,delayed 81 mg PO DAILY 03/03/20 06/11/25 09/07/21 History release (Adult Low Dose Aspirin) Held on 09/14/21. Instructions: Resume on 09/20/21. multivit,Ca,min-iron 8 mg-folic 1 tablet PO .QD 03/03/20 06/11/25 09/11/21 History acid 200 mcg-lycopene 600 mcg tablet (Centrum Men) Held on 09/14/21. Instructions: Resume on 09/20/21. potassium gluconate 595 mg (99 mg) 595 mg PO DAILY 03/03/20 06/11/25 09/11/21 History tablet vitamin B comp with C no.4 150 mg 1 tablet PO .QD 03/03/20 06/11/25 09/11/21 History tablet vitamin B12 500 mcg-folic acid 400 1 tablet PO DAILY 03/03/20 06/11/25 09/11/21 History mcg tablet Held on 09/14/21. Instructions: Resume on 09/20/21. Allergies Allergy/AdvReac Type Severity Reaction Status Date / Time No Known Allergies Allergy Verified 08/23/25 13:32 Review of Systems Review of Systems: All systems reviewed & are unremarkable except as noted in HPI and below PMFSH Past Medical History Medical History Hydrocele, right Normal colonoscopy (~04/24/18) Dr Liz, no polyps. Repeat in 10 yrs. Essential (primary) hypertension Mixed hyperlipidemia Surgical History Surgical History History of left knee replacement (~11/2017) History of left shoulder replacement (~10/03/23) Hx of cystoscopy (~03/2021) Social History Social History Social History: Single, lives alone. 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 EYES: PERRLA/EOMI, conjunctivae clear. NOSE: Normal no drainage EARS:TMS clear with good light reflex. THROAT: Pharynx clear, no exudate. NECK: Supple. No adenopathy, no masses. RESPIRATORY: Airway patent, respirations nonlabored. Clear to auscultation bilaterally, no rales, rhonchi, wheezing. CARDIOVASCULAR: Regular rate and rhythm without murmurs rubs or gallops. ABDOMINAL: Diffuse lower abdominal tenderness to palpation MUSCULOSKELETAL: Moves all extremities. Strength/ROM intact, No edema, No calf tenderness. NEURO: Alert. Cranial nerves II through XII intact. Good gait. Good coordination SKIN: Warm, dry. Normal Color PSYCHIATRIC: Normal affect/mood. Course Vital Signs Vital signs: Vital Signs Temperature 97.6 F 08/25/25 09:32 Pulse Rate 88 08/25/25 09:32 Respiratory Rate 14 08/25/25 09:32 Blood Pressure 141/71 H 08/25/25 09:32 Pulse Oximetry 99 08/25/25 09:32 Oxygen Delivery Room Air 08/25/25 09:32 Temperature 97.6 F 08/25/25 09:32 Pulse Rate 75 08/25/25 12:10 Respiratory Rate 18 08/25/25 12:10 Blood Pressure 140/61 08/25/25 12:10 Pulse Oximetry 100 08/25/25 12:10 Oxygen Delivery Room Air 08/25/25 09:32 Medical Decision Making MDM Narrative Medical decision making narrative: 70-year-old male present to the emergency department for evaluation after leaving AMA after his last hospital visit. Patient is currently afebrile with no leukocytosis and hemoglobin of 12.1. Patient has an INR of 1.0. Patient does have a sodium of 3.3 this was replaced with 40 move all that is p.o. potassium. Patient does have a mildly elevated CRP at 4.0. Lactic acid is not elevated. CT scan does show a gastric ulcer and chronic diverticulitis. No evidence perforation. Patient will be started on IV Protonix in the emergency department. CT scan does show evidence of a gastric ulcer. Patient will be started on Augmentin for the diverticulitis. Patient will be encouraged to have close follow-up with GI. All questions concerns were addressed. Differential Diagnosis Differential Diagnosis: Colitis, diverticulitis, ulcer, perforated ulcer, malignancy Vital Signs Vital Signs: Vital Signs Temperature 97.6 F 08/25/25 09:32 Pulse Rate 88 08/25/25 09:32 Respiratory Rate 14 08/25/25 09:32 Blood Pressure 141/71 H 08/25/25 09:32 Pulse Oximetry 99 08/25/25 09:32 Oxygen Delivery Room Air 08/25/25 09:32 Temperature 97.6 F 08/25/25 09:32 Pulse Rate 75 08/25/25 12:10 Respiratory Rate 18 08/25/25 12:10 Blood Pressure 140/61 08/25/25 12:10 Pulse Oximetry 100 08/25/25 12:10 Oxygen Delivery Room Air 08/25/25 09:32 Lab Data Lab results reviewed: Yes I reviewed the patient's lab results. 08/25/25 10:05 08/25/25 10:05 Labs: Lab Results 08/25/25 Range/Units 10:05 WBC 9.7 (4.5-10.0) K/mm3 RBC 4.10 L (4.6-6.20) M/mm3 Hgb 12.1 L (14.0-18.0) g/dL Hct 37.7 L (42.0-52.0) % MCV 92.0 (80-100) fl MCH 29.5 (26-34) pg MCHC 32.1 (32-36) g/dl RDW 14.0 (11.5-14.5) % Plt Count 379 H (150-375) k/mm3 MPV 8.1 (7.4-10.4) fl Immature Gran % (Auto) 0.4 (0-0.5) % Neut % (Auto) 72.7 (45.5-73.1) % Lymph % (Auto) 18.5 (18.3-44.2) % Grant % (Auto) 5.5 (2.6-8.5) % Eos % (Auto) 2.7 (0-4.4) % Baso % (Auto) 0.2 (0.2-1.2) % Lymph # (Auto) 1.79 (0.9-3.2) K/mm3 Grant # (Auto) 0.5 (0.1-0.6) K/mm3 Eos # (Auto) 0.3 (0-0.3) K/mm3 Baso # (Auto) 0.0 (0.0-0.1) K/mm3 Abs Immat Gran (auto) 0.04 H (0.00-0.031) K/mm3 Absolute Neuts (auto) 7.0 H (1.3-6.7) K/mm3 Absolute Nucleated RBC 0.000 (0.0-0.012) K/mm3 Nucleated RBC % 0.0 (0.0-0.2) % PT 13.4 (11.1-14.7) Seconds INR 1.0 APTT 35.3 (22.3-36.8) Seconds Sodium 137 (137-145) mmol/L Potassium 3.3 L (3.4-5.0) mmol/L Chloride 104 (98-107) mmol/L Carbon Dioxide 19 L (22-30) mmol/L Anion Gap 14 H (4-12) mmol/L BUN 24 H (9-20) mg/dL Creatinine 1.29 (0.7-1.3) mg/dL Estim Creat Clear Calc 42 ml/min Estimated GFR 55 L (59 - ) Glucose 85 (65-110) mg/dL Lactic Acid 1.0 (0.7-2.0) mmol/L Calcium 10.1 (8.4-10.2) mg/dL Total Bilirubin 0.3 (0.2-1.3) mg/dL AST 26 (17-59) U/L ALT 14 (6-50) U/L Alkaline Phosphatase 80 (38-126) U/L C-Reactive Protein 4.0 H (<1.0) mg/dL Total Protein 7.7 (6.3-8.2) g/dL Albumin 4.1 (3.5-5.1) g/dL Procalcitonin 0.2 ng/mL Imaging Data Radiologist's impression: Impressions Abdomen/Pelvis CT 08/25/25 10:59 IMPRESSION: 1. Ulcer of the gastric antrum. 2. Chronic mild wall thickening of the sigmoid colon, likely chronic diverticulitis. Discharge Plan Discharge Clinical Impression: Diverticulitis, Gastric ulcer Patient Disposition: Home Condition: Stable Instructions: Antibiotic Form, Gastritis (DC), Diverticulitis (ED) Additional Instructions: Tylenol for pain control. Omeprazole as directed to help decrease your stomach acid. Avoid alcohol and avoid NSAIDs. Antibiotic as directed to help with the diverticulitis. You will need to have close follow-up with GI. You will need endoscopy and a colonoscopy. If you have any worsening symptoms then please call or return to the emergency department. Patient Language: Bahamian Prescriptions: New omeprazole 20 mg capsule,delayed release(DR/EC) 20 mg PO DAILY 14 Days Qty: 14 0RF amoxicillin-pot clavulanate 875-125 mg tablet 1 tablet PO Q12H 7 Days Qty: 14 0RF tramadol 50 mg tablet 50 mg PO BID PRN (Reason: pain) Qty: 14 0RF No Action diclofenac sodium 100 mg tablet extended release 24 hr 100 mg PO DAILY Qty: 30 3RF Centrum Men 8 mg iron- 200 mcg-600 mcg tablet 1 tablet PO .QD aspirin [Adult Low Dose Aspirin] 81 mg tablet,delayed release (DR/EC) 81 mg PO DAILY potassium gluconate 595 mg (99 mg) tablet 595 mg PO DAILY vitamin B comp with C no.4 150 mg tablet 1 tablet PO .QD vitamin D09-cfkuv acid 500-400 mcg tablet 1 tablet PO DAILY Rx Instructions: administer with a meal ascorbate calcium (vitamin C) 500 mg tablet 500 mg PO DAILY simvastatin 20 mg tablet See Rx Instructions .ROUTE .COMPLEX Qty: 90 1RF Dose Instruction: TAKE 1 TABLET BY MOUTH EVERY DAY Rx Instructions: TAKE 1 TABLET BY MOUTH EVERY DAY lisinopril-hydrochlorothiazide 20-25 mg tablet See Rx Instructions .ROUTE .COMPLEX Qty: 90 1RF Dose Instruction: TAKE 1 TABLET BY MOUTH EVERY DAY Rx Instructions: TAKE 1 TABLET BY MOUTH EVERY DAY Follow-up/Referrals: Stacey Gregory MD [Primary Care Provider, Family Practice] Donte Lomax MD [Physician, Gastroenterology] Stand Alone Forms: Work/School Release IP
[2025-08-25 10:15] LABS: Hematocrit 37.7 % (42.0-52.0); Hemoglobin 12.1 g/dL (14.0-18.0); Immature Granulocyte Percent A 0.4 % (0-0.5); Lymphocytes Absolute Auto 1.79 K/mm3 (0.9-3.2); Mean Corpuscular HGB Conc 32.1 g/dl (32-36); Mean Corpuscular Hemoglobin 29.5 pg (26-34); Mean Corpuscular Volume 92.0 fl (80-100); Nucleated Red Blood Cells Absolute Auto 0.000 K/mm3 (0.0-0.012); Nucleated Red Blood Cells Perc 0.0 % (0.0-0.2); Platelet Count Result 379 k/mm3 (150-375); Red Blood Count 4.10 M/mm3 (4.6-6.20); White Blood Count 9.7 K/mm3 (4.5-10.0)
[2025-08-25] MEDS: ONDANSETRON INJ 4 MG/2 ML VIAL IV PUSH (10:17)
[2025-08-25] MEDS: HYDROmorphone HCL INJ (*CRX) 1 MG/ML SYR 0.5 MG IV PUSH (10:17)
[2025-08-25] MEDS: LACTATED RINGERS 1,000 ML 999 ML IV CONT (10:18)
[2025-08-25 10:24] LABS: Potassium 3.3 mmol/L (3.4-5.0)
[2025-08-25 10:27] LABS: Alanine Aminotransferase 14 U/L (6-50); Albumin Level 4.1 g/dL (3.5-5.1); Alkaline Phosphatase 80 U/L (38-126); Anion Gap 14 mmol/L (4-12); Aspartate Amino Transferase 26 U/L (17-59); Bilirubin,Total 0.3 mg/dL (0.2-1.3); Blood Urea Nitrogen 24 mg/dL (9-20); CRP 4.0 mg/dL (<1.0); Calcium 10.1 mg/dL (8.4-10.2); Carbon Dioxide 19 mmol/L (22-30); Chloride 104 mmol/L (98-107); Estimated CRCL calculation 42 ml/min; Estimated Glomerular Filt Rate 55; Glucose 85 mg/dL (65-110); Sodium 137 mmol/L (137-145); Total Protein 7.7 g/dL (6.3-8.2)
[2025-08-25 10:29] LABS: INR 1.0; Prothrombin Time 13.4 Seconds (11.1-14.7)
[2025-08-25 10:30] LABS: Partial Thromboplastin Time 35.3 Seconds (22.3-36.8)
[2025-08-25 10:44] LABS: Procalcitonin 0.2 ng/mL
--- NOTE | 2025-08-25 11:30 | PC.NURSE ---
Dr. Brumfield in room. Pt was told he could be d/c once fluids are finished. Fluids were hung by gravity and were over half full at this point. Fluids were hung on a higher IV pole to assist with the gravity flow.
[2025-08-25] MEDS: PANTOPRAZOLE SODIUM IV 40 MG VIAL IV PUSH (11:50)
[2025-08-25] MEDS: POTASSIUM CHLORIDE 20 MEQ PACKET (FOR LIQUID) 40 MEQ PO (11:51)
[2025-08-25 12:10] VITALS: BP 140/61; PULSE 75; RESP 18; O2SAT 100
--- NOTE | 2025-08-25 12:11 | PC.NURSE ---
IV fluids took longer than 1 hour to infuse d/t location of the fluids. Fluids finished at 12:10
--- NOTE | 2025-08-25 12:16 | PC.NURSE ---
Pt asked if Dr. Brumfield would send in some pain medications to his the medical center. Dr. Brumfield consulted and order was placed.
== END 2025-08-25 12:24 | disposition home or self-care (01) ==
PROVIDERS: Emergency Provider Emergency Medicine; PCP Family Medicine
DX: K57.32 Diverticulitis of large intestine without perforation or abscess without bleeding (principal); K25.9 Gastric ulcer, unspecified as acute or chronic, without hemorrhage or perforation; I10 Essential (primary) hypertension; E78.2 Mixed hyperlipidemia; Z96.652 Presence of left artificial knee joint; Z96.612 Presence of left artificial shoulder joint
CPT/HCPCS: 36415; 74177; 80053; 83605; 84145; 85025; 85610; 85730; 86140; 87040; 96361; 96374; 96375; 99284; A9270; J1171; J2405; J2470; J7120; Q9967

== ENCOUNTER 2025-09-13 13:02 | Emergency (ER) | payer MEDICARE, SELFPAY ==
--- NOTE | ~2025-09-13 | CT_ITS ---
EXAMINATION: CT abdomen pelvis w con DATE: 09/13/2025 15:09 INDICATION: Abdominal pain TECHNIQUE: Computed tomography (CT) of the abdomen and pelvis was performed with 100 mL Omnipaque-350 intravenous contrast. Automated exposure control and iterative reconstruction technique were employed. The dose-length product was 600.21 mGy-cm. COMPARISON: 08/25/2025 FINDINGS: Lung bases are clear. Heart size is normal. Atherosclerotic coronary artery calcific lesion. No pericardial or pleural effusion. No interval change in a nonperforated small collar button gastric ulcer at the gastric antrum. Liver, gallbladder, spleen, pancreas, bilateral adrenal glands and kidneys are normal. There is moderate colonic diverticulosis without adjacent inflammatory change to suggest diverticulitis. Small bowel and appendix are normal. Bladder is normal. No free intraperitoneal gas or fluid. No pathologically enlarged abdominal or pelvic lymphadenopathy. Mild lumbar dextrocurvature with severe lumbar and lower thoracic spondylosis. Transitional S1 segment, sacralized on the right and lumbarized on the left. IMPRESSION: 1. Unchanged collar button ulcer at the gastric antrum without full-thickness perforation. No other acute intra-abdominal/pelvic process. 2. Diverticulosis. Reviewed, dictated and finalized at location A. IMPRESSION: 1. Unchanged collar button ulcer at the gastric antrum without full-thickness p erforation. No other acute intra-abdominal/pelvic process. 2. Diverticulosis.
[2025-09-13 13:10] VITALS: BP 156/87; PULSE 120; RESP 16; TEMP 36.4; O2SAT 100
--- NOTE | 2025-09-13 13:31 | ED.ABDPAIN ---
HPI - Abdominal Pain General Chief Complaint: Abdominal Pain <LEONA Hammer - Last Filed: 09/13/25 13:36> Stated Complaint: abdominal pain. HX diverticulitis <LEONA Hammer - Last Filed: 09/13/25 13:36> Time Seen by Provider: 09/13/25 14:33 <LEONA Hammer - Last Filed: 09/13/25 13:36> Focused HPI: Generalized abdominal pain for four days. No N/V/D. No fevers. Laying down makes the pain better, eating makes worse. No hx of abdominal surgeries, but states that on 07/24/25 they wanted to operate because there was no bottom of the stomach left. The pt then left AMA. Pt came back after that and was told that he may have had a perforation but it had healed. Waiting to see GI and PCP. No pain meds used for pain. Rates pain 07/28. Colonoscopy showed polyps in 2018. No recent EGD. GENERAL: Well-appearing, well-nourished, and in no acute distress. HEAD: Normocephalic, atraumatic. CHEST: Clear to auscultation. ?No respiratory distress. HEART: Regular rate and rhythm.? NEURO: ?Alert and oriented x3. GI: Diffusely TTP, worse in the RLQ. No rebound, guarding. Patient screened in triage and initial orders placed.? ?Additional care and disposition to be based upon?diagnostic testing and treatment. <LEONA Hammer - Last Filed: 09/13/25 13:36> Source: patient <LEONA Hammer - Last Filed: 09/13/25 13:36> Mode of arrival: ambulatory <LEONA Hammer - Last Filed: 09/13/25 13:36> Limitations: no limitations <LEONA Hammer - Last Filed: 09/13/25 13:36> History of Present Illness HPI narrative: Agree the HPI. Burning epigastric pain. Worse with eating. Has been taking medications since last hospital visit. Pain is in upper abdomen. No radiation. <Giuliano Sorenson MD - Last Filed: 09/13/25 17:42> Related Data Home Medications: Home Medications ?Medication ?Instructions ?Recorded ?Confirmed ?Last Taken ?Type ascorbate calcium (vitamin C) 500 500 mg PO DAILY 03/03/20 06/11/25 09/11/21 History mg tablet aspirin 81 mg tablet,delayed 81 mg PO DAILY 03/03/20 06/11/25 09/07/21 History release (Adult Low Dose Aspirin) Held on 09/14/21. Instructions: Resume on 09/20/21. multivit,Ca,min-iron 8 mg-folic 1 tablet PO .QD 03/03/20 06/11/25 09/11/21 History acid 200 mcg-lycopene 600 mcg tablet (Centrum Men) Held on 09/14/21. Instructions: Resume on 09/20/21. potassium gluconate 595 mg (99 mg) 595 mg PO DAILY 03/03/20 06/11/25 09/11/21 History tablet vitamin B comp with C no.4 150 mg 1 tablet PO .QD 03/03/20 06/11/25 09/11/21 History tablet vitamin B12 500 mcg-folic acid 400 1 tablet PO DAILY 03/03/20 06/11/25 09/11/21 History mcg tablet Held on 09/14/21. Instructions: Resume on 09/20/21. <LEONA Hammer - Last Filed: 09/13/25 13:36> Allergies/Adverse Reactions: Allergies Allergy/AdvReac Type Severity Reaction Status Date / Time No Known Allergies Allergy Verified 09/13/25 14:33 <LEONA Hammer - Last Filed: 09/13/25 13:36> Review of Systems Review of Systems: All systems reviewed & are unremarkable except as noted in HPI and below <Giuliano Sorenson MD - Last Filed: 09/13/25 17:42> Constitutional: Constitutional: Reports no additional constitutional complaints <Giuliano Sorenson MD - Last Filed: 09/13/25 17:42> ENT: Reports system reviewed and no additional complaints, except as documented <Giuliano Sorenson MD - Last Filed: 09/13/25 17:42> Cardiovascular: Cardiovascular: Reports no additional cardiovascular complaints <Giuliano Sorenson MD - Last Filed: 09/13/25 17:42> Respiratory: Respiratory: Reports no additional respiratory complaints <Giuliano Sorenson MD - Last Filed: 09/13/25 17:42> Gastrointestinal: Gastrointestinal: Reports no additional gastrointestinal complaints <Giuliano Sorenson MD - Last Filed: 09/13/25 17:42> [facility] Past Medical History Medical History: Medical History Hydrocele, right Normal colonoscopy (~04/24/18) Dr Hill, no polyps. Repeat in 10 yrs. Essential (primary) hypertension Mixed hyperlipidemia <LEONA Hammer - Last Filed: 09/13/25 13:36> Surgical History Surgical History: Surgical History History of left knee replacement (~11/2017) History of left shoulder replacement (~10/03/23) Hx of cystoscopy (~03/2021) <LEONA Hammer - Last Filed: 09/13/25 13:36> Social History Social History: Social History Social History: Single, lives alone. 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 HEAD: Normocephalic, atraumatic. ENT: Mucous membranes moist. CHEST: Clear to auscultation. No respiratory distress. HEART: Regular rate and rhythm. Normal peripheral pulses. ABDOMEN: Soft, nontender, nondistended. EXTREMITIES: Normal range of motion. No edema. SKIN: Warm, dry, no rash. NEURO: Alert and oriented x3. PSYCH: Normal mood and affect. <Giuliano Sorenson MD - Last Filed: 09/13/25 17:42> Course Course Emergency Course: Patient is still taking aspirin back four times a day. Educated that NSAIDs are cause of ulcerations. He has had no melena. Discussed need for cessation of all NSAIDs and discussed specific brands and medications. Will increase his PPI to 40 mg twice a day. He has follow-up with GI scheduled. <Giuliano Sorensno MD - Last Filed: 09/13/25 17:42> Vital Signs Vital signs: Vital Signs Temperature 97.6 F 09/13/25 13:10 Pulse Rate 120 H 09/13/25 13:10 Respiratory Rate 16 09/13/25 13:10 Blood Pressure 156/87 H 09/13/25 13:10 Pulse Oximetry 100 09/13/25 13:10 Oxygen Delivery Room Air 09/13/25 13:10 Temperature 98.2 F 09/13/25 14:31 Pulse Rate 96 09/13/25 16:52 Respiratory Rate 18 09/13/25 16:52 Blood Pressure 140/71 09/13/25 16:52 Pulse Oximetry 100 09/13/25 16:52 Oxygen Delivery Room Air 09/13/25 14:31 <Ceci Yoder APN-C - Last Filed: 09/13/25 13:36> Vital Signs Temperature 97.6 F 09/13/25 13:10 Pulse Rate 120 H 09/13/25 13:10 Respiratory Rate 16 09/13/25 13:10 Blood Pressure 156/87 H 09/13/25 13:10 Pulse Oximetry 100 09/13/25 13:10 Oxygen Delivery Room Air 09/13/25 13:10 Temperature 98.2 F 09/13/25 14:31 Pulse Rate 96 09/13/25 16:52 Respiratory Rate 18 09/13/25 16:52 Blood Pressure 140/71 09/13/25 16:52 Pulse Oximetry 100 09/13/25 16:52 Oxygen Delivery Room Air 09/13/25 14:31 <Giuliano Sorenson MD - Last Filed: 09/13/25 17:42> MDM - Abdominal Pain Differential Diagnosis Differential diagnosis: Likely acute appendicitis, gastroenteritis, pancreatitis, small bowel obstruction and other (Gastric perforation, GERD) <Giuliano Sorenson MD - Last Filed: 09/13/25 17:42> Lab Data Attestation: I reviewed the patient's lab results. <Giuliano Sorenson MD - Last Filed: 09/13/25 17:42> Result diagrams: 09/13/25 14:14 09/13/25 14:14 <LEONA Hammer - Last Filed: 09/13/25 13:36> Labs: Lab Results 09/13/25 09/13/25 Range/Units 14:14 14:23 WBC 11.8 H (4.5-10.0) K/mm3 RBC 4.31 L (4.6-6.20) M/mm3 Hgb 13.0 L (14.0-18.0) g/dL Hct 38.9 L (42.0-52.0) % MCV 90.3 (80-100) fl MCH 30.2 (26-34) pg MCHC 33.4 (32-36) g/dl RDW 15.0 H (11.5-14.5) % Plt Count 389 H (150-375) k/mm3 MPV 8.2 (7.4-10.4) fl Immature Gran % (Auto) 0.3 (0-0.5) % Neut % (Auto) 79.2 H (45.5-73.1) % Lymph % (Auto) 15.3 L (18.3-44.2) % [place] % (Auto) 4.6 (2.6-8.5) % Eos % (Auto) 0.3 (0-4.4) % Baso % (Auto) 0.3 (0.2-1.2) % Lymph # (Auto) 1.81 (0.9-3.2) K/mm3 [place] # (Auto) 0.6 (0.1-0.6) K/mm3 Eos # (Auto) 0.0 (0-0.3) K/mm3 Baso # (Auto) 0.0 (0.0-0.1) K/mm3 Abs Immat Gran (auto) 0.04 H (0.00-0.031) K/mm3 Absolute Neuts (auto) 9.4 H (1.3-6.7) K/mm3 Absolute Nucleated RBC 0.000 (0.0-0.012) K/mm3 Nucleated RBC % 0.0 (0.0-0.2) % PT 13.0 (11.1-14.7) Seconds INR 1.0 APTT 28.2 (22.3-36.8) Seconds Sodium 135 L (137-145) mmol/L Potassium 3.8 (3.4-5.0) mmol/L Chloride 102 (98-107) mmol/L Carbon Dioxide 18 L (22-30) mmol/L Anion Gap 15 H (4-12) mmol/L BUN 17 (9-20) mg/dL Creatinine 1.08 (0.7-1.3) mg/dL Estim Creat Clear Calc 56 ml/min Estimated GFR > 60 (59 - ) Glucose 108 (65-110) mg/dL Lactic Acid 0.9 (0.7-2.0) mmol/L Calcium 10.9 H (8.4-10.2) mg/dL Total Bilirubin 0.4 (0.2-1.3) mg/dL AST 30 (17-59) U/L ALT 13 (6-50) U/L Alkaline Phosphatase 70 (38-126) U/L Total Protein 8.2 (6.3-8.2) g/dL Albumin 4.4 (3.5-5.1) g/dL Lipase 130 (23-300) U/L Urine Color Yellow (Yellow) Urine Appearance Clear (Clear) Urine pH 5.0 (5.0-9.0) Ur Specific [place] 1.021 (1.001-1.035) Urine Protein Negative (Negative) mg/dL Urine Glucose (UA) Negative (Negative) mg/dL Urine Ketones 1+ H (Negative) mg/dL Ur Blood (Man) Negative (Negative) Urine Nitrate Negative (Negative) Urine Bilirubin Negative (Negative) Urine Urobilinogen 0.2 (<2.0) mg/dL Leukocyte Esterase Rfl Negative (Negative) NONA/UL <Ceci Yoder APN-Ravi - Last Filed: 09/13/25 13:36> Lab Results 09/13/25 09/13/25 Range/Units 14:14 14:23 WBC 11.8 H (4.5-10.0) K/mm3 RBC 4.31 L (4.6-6.20) M/mm3 Hgb 13.0 L (14.0-18.0) g/dL Hct 38.9 L (42.0-52.0) % MCV 90.3 (80-100) fl MCH 30.2 (26-34) pg MCHC 33.4 (32-36) g/dl RDW 15.0 H (11.5-14.5) % Plt Count 389 H (150-375) k/mm3 MPV 8.2 (7.4-10.4) fl Immature Gran % (Auto) 0.3 (0-0.5) % Neut % (Auto) 79.2 H (45.5-73.1) % Lymph % (Auto) 15.3 L (18.3-44.2) % [place] % (Auto) 4.6 (2.6-8.5) % Eos % (Auto) 0.3 (0-4.4) % Baso % (Auto) 0.3 (0.2-1.2) % Lymph # (Auto) 1.81 (0.9-3.2) K/mm3 [place] # (Auto) 0.6 (0.1-0.6) K/mm3 Eos # (Auto) 0.0 (0-0.3) K/mm3 Baso # (Auto) 0.0 (0.0-0.1) K/mm3 Abs Immat Gran (auto) 0.04 H (0.00-0.031) K/mm3 Absolute Neuts (auto) 9.4 H (1.3-6.7) K/mm3 Absolute Nucleated RBC 0.000 (0.0-0.012) K/mm3 Nucleated RBC % 0.0 (0.0-0.2) % PT 13.0 (11.1-14.7) Seconds INR 1.0 APTT 28.2 (22.3-36.8) Seconds Sodium 135 L (137-145) mmol/L Potassium 3.8 (3.4-5.0) mmol/L Chloride 102 (98-107) mmol/L Carbon Dioxide 18 L (22-30) mmol/L Anion Gap 15 H (4-12) mmol/L BUN 17 (9-20) mg/dL Creatinine 1.08 (0.7-1.3) mg/dL Estim Creat Clear Calc 56 ml/min Estimated GFR > 60 (59 - ) Glucose 108 (65-110) mg/dL Lactic Acid 0.9 (0.7-2.0) mmol/L Calcium 10.9 H (8.4-10.2) mg/dL Total Bilirubin 0.4 (0.2-1.3) mg/dL AST 30 (17-59) U/L ALT 13 (6-50) U/L Alkaline Phosphatase 70 (38-126) U/L Total Protein 8.2 (6.3-8.2) g/dL Albumin 4.4 (3.5-5.1) g/dL Lipase 130 (23-300) U/L Urine Color Yellow (Yellow) Urine Appearance Clear (Clear) Urine pH 5.0 (5.0-9.0) Ur Specific [place] 1.021 (1.001-1.035) Urine Protein Negative (Negative) mg/dL Urine Glucose (UA) Negative (Negative) mg/dL Urine Ketones 1+ H (Negative) mg/dL Ur Blood (Man) Negative (Negative) Urine Nitrate Negative (Negative) Urine Bilirubin Negative (Negative) Urine Urobilinogen 0.2 (<2.0) mg/dL Leukocyte Esterase Rfl Negative (Negative) NONA/UL <Giuliano Sorenson MD - Last Filed: 09/13/25 17:42> Imaging Data Radiologist's impression: ITS Impressions Abdomen/Pelvis CT 09/13/25 15:18 IMPRESSION: 1. Unchanged collar button ulcer at the gastric antrum without full-thickness perforation. No other acute intra-abdominal/pelvic process. 2. Diverticulosis. <LEONA Hammer - Last Filed: 09/13/25 13:36> ITS Impressions Abdomen/Pelvis CT 09/13/25 15:18 IMPRESSION: 1. Unchanged collar button ulcer at the gastric antrum without full-thickness perforation. No other acute intra-abdominal/pelvic process. 2. Diverticulosis. <Giuliano Sorenson MD - Last Filed: 09/13/25 17:42> Discharge Plan Discharge Clinical Impression: Gastric ulcer due to nonsteroidal anti-inflammatory drug (NSAID) <LEONA Hammer - Last Filed: 09/13/25 13:36> Patient Disposition: Home <LEONA Hammer - Last Filed: 09/13/25 13:36> Condition: Stable <LEONA Hammer - Last Filed: 09/13/25 13:36> Instructions: Peptic Ulcer (ED), Diet for Stomach Ulcers and Gastritis (ED) <LEONA Hammer - Last Filed: 09/13/25 13:36> Additional Instructions: Return to the emergency department if you develop severe abdominal pain, severe nausea and vomiting to the point where you are unable to keep down fluids, if you develop chest pain or difficulty breathing, blood in your stool, dizziness or fainting, or if you develop any other new or concerning symptoms as these could be signs of more serious medical illness. Try to stay well hydrated. Return ER if you have maroon stool, you have worsening abdominal have additional concerns. Take Protonix 40 mg twice a day and stop taking anti-inflammatory medicines like ibuprofen/naproxen/Advil/Aleve/aspirin. <LEONA Hammer - Last Filed: 09/13/25 13:36> Patient Language: Chinese <LEONA Hammer - Last Filed: 09/13/25 13:36> Prescriptions: New pantoprazole 40 mg tablet,delayed release (DR/EC) 40 mg PO BID Qty: 28 0RF No Action diclofenac sodium 100 mg tablet extended release 24 hr 100 mg PO DAILY Qty: 30 3RF Centrum Men 8 mg iron- 200 mcg-600 mcg tablet 1 tablet PO .QD aspirin [Adult Low Dose Aspirin] 81 mg tablet,delayed release (DR/EC) 81 mg PO DAILY potassium gluconate 595 mg (99 mg) tablet 595 mg PO DAILY vitamin B comp with C no.4 150 mg tablet 1 tablet PO .QD vitamin A76-erndj acid 500-400 mcg tablet 1 tablet PO DAILY Rx Instructions: administer with a meal ascorbate calcium (vitamin C) 500 mg tablet 500 mg PO DAILY omeprazole 20 mg capsule,delayed release(DR/EC) 20 mg PO DAILY 14 Days Qty: 14 0RF amoxicillin-pot clavulanate 875-125 mg tablet 1 tablet PO Q12H 7 Days Qty: 14 0RF tramadol 50 mg tablet 50 mg PO BID PRN (Reason: pain) Qty: 14 0RF simvastatin 20 mg tablet See Rx Instructions .ROUTE .COMPLEX Qty: 90 1RF Dose Instruction: TAKE 1 TABLET BY MOUTH EVERY DAY Rx Instructions: TAKE 1 TABLET BY MOUTH EVERY DAY lisinopril-hydrochlorothiazide 20-25 mg tablet See Rx Instructions .ROUTE .COMPLEX Qty: 90 1RF Dose Instruction: TAKE 1 TABLET BY MOUTH EVERY DAY Rx Instructions: TAKE 1 TABLET BY MOUTH EVERY DAY <LEONA Hammer - Last Filed: 09/13/25 13:36> Follow-up/Referrals: Stacey Gregory MD [Primary Care Provider, Family Practice] - 1 Week <LEONA Hammer - Last Filed: 09/13/25 13:36>
[2025-09-13 14:20] LABS: Hematocrit 38.9 % (42.0-52.0); Hemoglobin 13.0 g/dL (14.0-18.0); Immature Granulocyte Percent A 0.3 % (0-0.5); Lymphocytes Absolute Auto 1.81 K/mm3 (0.9-3.2); Mean Corpuscular HGB Conc 33.4 g/dl (32-36); Mean Corpuscular Hemoglobin 30.2 pg (26-34); Mean Corpuscular Volume 90.3 fl (80-100); Nucleated Red Blood Cells Absolute Auto 0.000 K/mm3 (0.0-0.012); Nucleated Red Blood Cells Perc 0.0 % (0.0-0.2); Platelet Count Result 389 k/mm3 (150-375); Red Blood Count 4.31 M/mm3 (4.6-6.20); White Blood Count 11.8 K/mm3 (4.5-10.0)
[2025-09-13 14:31] VITALS: BP 149/78; PULSE 126; RESP 21; TEMP 36.8; O2SAT 99
[2025-09-13 14:31] LABS: Alanine Aminotransferase 13 U/L (6-50); Albumin Level 4.4 g/dL (3.5-5.1); Alkaline Phosphatase 70 U/L (38-126); Anion Gap 15 mmol/L (4-12); Aspartate Amino Transferase 30 U/L (17-59); Bilirubin,Total 0.4 mg/dL (0.2-1.3); Blood Urea Nitrogen 17 mg/dL (9-20); Calcium 10.9 mg/dL (8.4-10.2); Carbon Dioxide 18 mmol/L (22-30); Chloride 102 mmol/L (98-107); Estimated CRCL calculation 56 ml/min; Estimated Glomerular Filt Rate > 60; Glucose 108 mg/dL (65-110); Lipase 130 U/L (23-300); Potassium 3.8 mmol/L (3.4-5.0); Sodium 135 mmol/L (137-145); Total Protein 8.2 g/dL (6.3-8.2)
--- OUTSIDE RECORDS SUMMARY | 2025-09-13 14:32 | XMS_ITS | Clinical Summary ---
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 Active oxyCODONE (ROXICODONE) 5 mg [...] Comments Blood Pressure 124/65 01/08/2025 7:21 AM ASSISTANT BOYS TRACK COACH Pulse 82 01/08/2025 7:21 AM ASSISTANT BOYS TRACK COACH Temperature 36.6 C (97.8 F) 01/08/2025 7:21 AM ASSISTANT BOYS TRACK COACH Respiratory Rate 18 01/08/2025 7:21 AM ASSISTANT BOYS TRACK COACH Oxygen Saturation 98% 01/08/2025 7:21 AM ASSISTANT BOYS TRACK COACH Inhaled Oxygen Concentration - - Weight 80.3 kg (177 lb) 01/07/2025 11:16 AM ASSISTANT BOYS TRACK COACH Height 162.6 cm (5' 4) 12/31/2024 12:39 PM ASSISTANT BOYS TRACK COACH Body Mass Index 30.38 12/31/2024 12:39 PM ASSISTANT BOYS TRACK COACH Plan of Treatment Health Maintenance Due Date Last Done Comments Colon Cancer Screening-Colonoscopy 1955 Depression Screening 1956 Hepatitis C Screening 1956 Prostate Cancer Screening-PSA 1956 Hepatitis B Screening 1974 Well Visit 65+ 2021 Pneumococcal vaccine 65+ (2 of 2 - PCV) 01/08/2023 01/08/2022 Covid-19 Vaccine ( - 2024-2 6 season) 2025 10/27/2021, 01/28/2021, 12/31/2020 Fall Risk Assessment 01/08/2026 01/08/2025 DTaP/Tdap/Td Vaccine (2 - Td or Tdap) 12/19/2034 12/19/2024 Influenza Vaccine Completed 08/07/2025, , 01/08/2022, Additional history exists Zoster Vaccine Completed 08/22/2025, 05/29/2025 Medical Devices Implanted Type Area Smutter Device Identifier Shelf Expiration Date Model / Serial / Lot [employer] Od25 Mm Full Wedge Augment Shoulder 15 D Baseplate Glenoid [id number] - [id number] - [id number] Implanted:Qty: 1 on 10/03/2023 by Ariel Pollard MD at [facility] Other - see comments Left: Shoulder [employer] 01/26/2028 [id number] / [id number] / [employer] Aequalis Perform 7mm Reverse Screw Bone Sterile Latex Free [id number] - [id number] - [id number] Implanted:Qty: 1 on 10/03/2023 by Ariel Pollard MD at [facility] Other - see comments Left: Shoulder [employer] 05/10/2028 [id number] / [id number] / [employer] Tornier Mangoqualis Perform 39mm Reverse Shoulder Standard Sphere [id number] - S0 - [id number] Implanted:Qty: 1 on 10/03/2023 by Ariel Pollard MD at [facility] Other - see comments Left: Shoulder [employer] 07/29/2027 [id number] / 0 / [id number] [employer] Stem Perform Sz 3 Plus Humeral Long Dwx3pl - [id number] - [id number] Implanted:Qty: 1 on 10/03/2023 by Ariel Pollard MD at [facility] Other - see comments Left: Shoulder [employer] [id number] / [id number] / [employer] Spacer Perform 9mm Humeral Sz 3/4 Igv580 - S0 - [id number] Implanted:Qty: 1 on 10/03/2023 by Ariel Pollard MD at [facility] Other - see comments Left: Shoulder [employer] 08/07/2027 [id number] / 0 / [id number] [employer] Insert Perform 10 Deg Ret [id number] - S0 - [id number] Implanted:Qty: 1 on 10/03/2023 by Ariel Pollard MD at [facility] Other - see comments Left: Shoulder [employer] 12/25/2027 [id number] / 0 / [id number] [employer] Insert Perform 10 Deg Ret [id number] - Sn/A - [id number] Implanted:Qty: 1 on 10/31/2023 by Ariel Pollard MD at [facility] Other - see comments Left: Shoulder [employer] [id number] 01/04/2028 [id number] / N/A / [id number] Description:Implant pause co mpleted prior to opening implant on sterile field [employer] Spacer Perform 9mm Humeral Sz 3/4 Nmb096 - Sn/A - [id number] Implanted:Qty: 1 on 10/31/2023 by Ariel Pollard MD at [facility] Other - see comments Left: Shoulder [employer] [id number] 05/08/2028 [id number] / N/A / [id number] Description:[facility] [employer] Tornier Aequalis Perform 39mm Reverse Shoulder Standard Sphere [id number] - [id number] - [id number] Implanted:Qty: 1 on 10/31/2023 by Ariel Pollard MD at [facility] Other - see comments Left: Shoulder [employer] [id number] 07/15/2028 [id number] / [id number] / Description:[facility]plant pause co [facility] [employer] Aequalis Perform Reversed Od5 Mm L50 Mm Peripheral Glenoid Screw Baseplate Nonsterile Tvg390 - S0 - [id number] Implanted:Qty: 1 on 10/03/2023 by Ariel Pollard MD at [facility] Screw Left: Shoulder [employer] [id number] / 0 / [employer] Aequalis Perform Reversed 5mm 38mm Peripheral Glenoid Screw Qzd329 - S0 - [id number] Implanted:Qty: 1 on 10/03/2023 by Ariel Pollard MD at [facility] Screw Left: Shoulder [employer] [id number] / 0 / [employer] Aequalis Perform Reversed 5mm 34mm Peripheral Glenoid Screw Eif711 - [id number] Implanted:Qty: 2 on 10/31/2023 by Ariel Pollard MD at [facility] Screw Left: Shoulder [employer] FBH224 / / Description:From instrument set [employer] Aequalis Perform Reversed Od5 Mm L54 Mm Peripheral Glenoid Screw Baseplate Nonsterile Tyt490 - [id number] Implanted:Qty: 1 on 10/31/2023 by Ariel Pollard MD at [facility] Screw Left: Shoulder [employer] JIA168 / / Description:From instrument set Knee Replacement Left: Knee [employer] Aequalis Perform Reversed 5mm 26mm Peripheral Glenoid Screw Nro258 - S0 - [id number] Implanted:Qty: 1 on 10/03/2023 by Ariel Pollard MD at [facility] Left: Shoulder [employer] BVE321 / 0 / [employer] Od25 Mm Full Wedge Augment Shoulder 15 D Baseplate Glenoid Yga652 - [id number] - [id number] Implanted:Qty: 1 on 01/07/2025 by Ariel Pollard MD at [facility] Right: Shoulder [employer] 10/08/2029 [id number] / [id number] / [employer] Aequalis Perform Reversed Od6.5 Mm L30 Mm Central Glenoid Screw Baseplate Nonsterile Cfp568 - [id number] Implanted:Qty: 1 on 01/07/2025 by Ariel Pollard MD at [facility] Right: Shoulder [employer] COD173 / / [employer] Aequalis Perform Reversed 5mm 34mm Peripheral Glenoid Screw Xif841 - [id number] Implanted:Qty: 2 on 01/07/2025 by Ariel Pollard MD at [facility] Right: Shoulder [employer] ZHF239 / / [employer] Tornier Aequalis Perform 39mm Reverse Shoulder Standard Sphere Fwc353 - [id number] - [id number] Implanted:Qty: 1 on 01/07/2025 by Ariel Pollard MD at [facility] Right: Shoulder [employer] 07/21/2029 WLZ163 / [id number] / [employer] Insert Perform 10 Deg Ret Ecg7988 [id number] - [id number] - [id number] Implanted:Qty: 1 on 01/07/2025 by Ariel Pollard MD at [facility] Right: Shoulder [employer] 03/29/2028 [id number] / [id number] / [employer] Tray Stem Humeral Shoulder Reverse Long Tornier Perform [id number] Dwx3pl - [id number] - [id number] Implanted:Qty: 1 on 01/07/2025 by Ariel Pollard MD at [facility] Right: Shoulder [employer] 08/18/2029 [id number] / [id number] / Explanted Type Area Smutter Device Identifier Shelf Expiration Date Model / Serial / Lot [employer] Insert Perform 10 Deg Ret Axr7133 Nxj0080 - [id number] - [id number] Explanted:Qty : 1 on 10/03/2023 by Ariel Pollard MD at [facility] Other - see comments Left: Shoulder [employer] [id number] 07/01/2025 [id number] / [id number] / [employer] Aequalis Perform Reversed 5mm 34mm Peripheral Glenoid Screw Xkw683 - [id number] Explanted:Qty : 1 on 10/03/2023 at [facility] Left: Shoulder [employer] XHT250 / / Insurance MEDICARE FORMERLY [facility] INSURANCE MEDICARE FORMERLY [facility] INSURANCE Advance Directives For more information, please contact: [phone] * Full Code (Latest Code Status on File) Date Activated Date Inactivated Comments 01/07/2025 7:21 PM 01/08/2025 3:40 PM * Full Code Date Activated Date Inactivated Comments 10/31/2023 7:44 PM 11/05/2023 7:58 PM * Full Code Date Activated Date Inactivated Comments 10/03/2023 7:50 PM 10/04/2023 4:31 PM Care Teams Basket Hand Weaver Relationship Specialty Start Date End Date Lliiam Gregory MD [address] [facility] [address] [place] [address] PCP - General Family Practice 03/01/23
[2025-09-13 14:35] LABS: INR 1.0; Partial Thromboplastin Time 28.2 Seconds (22.3-36.8); Prothrombin Time 13.0 Seconds (11.1-14.7)
[2025-09-13 14:40] LABS: Add Urine Microscopic? NO; Appearance Urine Clear (Clear); Glucose Urine UA Negative (Negative); Leukocyte Esterase Ur Negative LEU/UL (Negative); Nitrate Urine Negative (Negative); Specific Grav Ur 1.021 (1.001-1.035)
[2025-09-13] MEDS: SODIUM CHLORIDE 0.9% IV 1,000 ML 999 ML IV CONT (15:08)
[2025-09-13] MEDS: MORPHINE SULFATE (*CRX) 4 MG/ML INJ IV PUSH (15:10)
[2025-09-13 15:12] VITALS: BP 158/74; PULSE 107; RESP 19; O2SAT 99
[2025-09-13 15:55] VITALS: BP 140/76; PULSE 109; RESP 19; O2SAT 98
[2025-09-13] MEDS: BELLADONNA ALK/PHENOB ELIX 10 ML, MAG HYDROX/ALUMINUM HYD/SIMETH 30 ML, LIDOCAINE 2% VI... PO (16:00)
--- OUTSIDE RECORDS SUMMARY | 2025-09-13 16:31 | XMS_ITS | Clinical Summary ---
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 before breakfast Active oxyCODONE (ROXICODONE) 5 mg [...] Comments Blood Pressure 124/65 01/08/2025 7:21 AM AWAKE OVERNIGHT COUNSELOR Pulse 82 01/08/2025 7:21 AM AWAKE OVERNIGHT COUNSELOR Temperature 36.6 C (97.8 F) 01/08/2025 7:21 AM AWAKE OVERNIGHT COUNSELOR Respiratory Rate 18 01/08/2025 7:21 AM AWAKE OVERNIGHT COUNSELOR Oxygen Saturation 98% 01/08/2025 7:21 AM AWAKE OVERNIGHT COUNSELOR Inhaled Oxygen Concentration - - Weight 80.3 kg (177 lb) 01/07/2025 11:16 AM AWAKE OVERNIGHT COUNSELOR Height 162.6 cm (5' 4) 12/31/2024 12:39 PM AWAKE OVERNIGHT COUNSELOR Body Mass Index 30.38 12/31/2024 12:39 PM AWAKE OVERNIGHT COUNSELOR Plan of Treatment Health Maintenance Due Date [...] 08/22/2025, 05/29/2025 Medical Devices Implanted Type Area Heavy Duty Press Operator Device Identifier Shelf Expiration Date Model / Serial / Lot [facility] Od25 Mm Full Wedge Augment Shoulder 15 D Baseplate Glenoid [id number] - [id number] - [id number] Implanted:Qty: 1 on 10/03/2023 by Ariel Pollard MD at [facility] Other - see comments Left: Shoulder [employer] 01/26/2028 [id number] / [id number] / [employer] Aequalis Perform 7mm Reverse Screw Bone Sterile Latex Free [id number] - [id number] - [id number] Implanted:Qty: 1 on 10/03/2023 by Ariel Pollard MD at [facility] Other - see comments Left: Shoulder [employer] 05/10/2028 [id number] / [id number] / [employer] Tornier Mangoqualis Perform 39mm Reverse Shoulder Standard Sphere Qwb023 - S0 - [id number] Implanted:Qty: 1 on 10/03/2023 by Ariel Pollard MD at [facility] Other - see comments Left: Shoulder [employer] 07/29/2027 LEA564 / 0 / [id number] [employer] Stem Perform Sz 3 Plus Humeral Long Dwx3pl - [id number] - [id number] Implanted:Qty: 1 on 10/03/2023 by Ariel Pollard MD at [facility] Other - see comments Left: Shoulder [employer] [id number] / [id number] / [employer] Spacer Perform 9mm Humeral Sz 3/4 Axy006 - S0 - [id number] Implanted:Qty: 1 on 10/03/2023 by Ariel Pollard MD at [facility] Other - see comments Left: Shoulder [employer] 08/07/2027 PMA534 / 0 / [id number] [employer] Insert Perform 10 Deg Ret [id number] Aao9809 - S0 - [id number] Implanted:Qty: 1 on 10/03/2023 by Ariel Pollard MD at [facility] Other - see comments Left: Shoulder [employer] 12/25/2027 [id number] / 0 / [id number] [employer] Insert Perform 10 Deg Ret Hff5533 Vbu1574 - Sn/A - [id number] Implanted:Qty: 1 on 10/31/2023 by Ariel Pollard MD at [facility] Other - see comments Left: Shoulder [employer] [id number] 01/04/2028 [id number] / N/A / [id number] Description:Implant pause co mpleted prior to opening implant on sterile field [employer] Spacer Perform 9mm Humeral Sz 3/4 Gsv083 - Sn/A - [id number] Implanted:Qty: 1 on 10/31/2023 by Ariel Pollard MD at [facility] Other - see comments Left: Shoulder [employer] [id number] 05/08/2028 EIO397 / N/A / [id number] Description:Implant pause co [facility] AMS [employer] Tornier Aequalis Perform 39mm Reverse Shoulder Standard Sphere Vfg244 - [id number] - [id number] Implanted:Qty: 1 on 10/31/2023 by Ariel Pollard MD at [facility] Other - see comments Left: Shoulder AMS [employer] [id number] 07/15/2028 UKS072 / [id number] / Description:Implant pause co [facility] [employer] Aequalis Perform Reversed Od5 Mm L50 Mm Peripheral Glenoid Screw Baseplate Nonsterile Fik603 - S0 - [id number] Implanted:Qty: 1 on 10/03/2023 by Ariel Pollard MD at [facility] Screw Left: Shoulder [employer] JRU989 / 0 / [employer] Aequalis Perform Reversed 5mm 38mm Peripheral Glenoid Screw Hip176 - S0 - [id number] Implanted:Qty: 1 on 10/03/2023 by Ariel Pollard MD at [facility] Screw Left: Shoulder [employer] [id number] / 0 / [employer] Aequalis Perform Reversed 5mm 34mm Peripheral Glenoid Screw Exp115 - [id number] Implanted:Qty: 2 on 10/31/2023 by Ariel Pollard MD at [facility] Screw Left: Shoulder [employer] QHT096 / / Description:From instrument set AMS [employer] Aequalis Perform Reversed Od5 Mm L54 Mm Peripheral Glenoid Screw Baseplate Nonsterile Cpx053 - [id number] Implanted:Qty: 1 on 10/31/2023 by Ariel Pollard MD at [facility] Screw Left: Shoulder [employer] ZER228 / / Description:From instrument set Knee Replacement Left: Knee AMS [employer] Aequalis Perform Reversed 5mm 26mm Peripheral Glenoid Screw Qye168 - S0 - [id number] Implanted:Qty: 1 on 10/03/2023 by Ariel Pollard MD at [facility] Left: Shoulder [employer] CUZ884 / 0 / AMS [employer] Od25 Mm Full Wedge Augment Shoulder 15 D Baseplate Glenoid Rsz977 - [id number] - [id number] Implanted:Qty: 1 on 01/07/2025 by Ariel Pollard MD at [facility] Right: Shoulder AMS [employer] 10/08/2029 ESS962 / [id number] / [employer] Aequalis Perform Reversed Od6.5 Mm L30 Mm Central Glenoid Screw Baseplate Nonsterile Gjj607 - [id number] Implanted:Qty: 1 on 01/07/2025 by Ariel Pollard MD at [facility] Right: Shoulder AMS [employer] CUJ944 / / AMS [employer] Aequalis Perform Reversed 5mm 34mm Peripheral Glenoid Screw Kge895 - [id number] Implanted:Qty: 2 on 01/07/2025 by Ariel Pollard MD at [facility] Right: Shoulder [employer] DAS475 / / AMS [employer] Tornier Aequalis Perform 39mm Reverse Shoulder Standard Sphere Gsu683 - [id number] - [id number] Implanted:Qty: 1 on 01/07/2025 by Ariel Pollard MD at [facility] Right: Shoulder [employer] 07/21/2029 GUH215 / [id number] / AMS [employer] Insert Perform 10 Deg Ret [id number] Bdl8234 - [id number] - [id number] Implanted:Qty: 1 on 01/07/2025 by Ariel Pollard MD at [facility] Right: Shoulder [employer] 03/29/2028 ZAM2783 / [id number] / AMS [employer] Tray Stem Humeral Shoulder Reverse Long Tornier Perform [id number] Dwx3pl - [id number] - [id number] Implanted:Qty: 1 on 01/07/2025 by Ariel Pollard MD at [facility] Right: Shoulder AMS [employer] 08/18/2029 DWX3PL / [id number] / Explanted Type Area Heavy Duty Press Operator Device Identifier Shelf Expiration Date Model / Serial / Lot [employer] Insert Perform 10 Deg Ret [id number] Gse7050 - [id number] - [id number] Explanted:Qty : 1 on 10/03/2023 by Ariel Pollard MD at [facility] Other - see comments Left: Shoulder [employer] [id number] 07/01/2025 DOJ9543 / [id number] / AMS [employer] Aequalis Perform Reversed 5mm 34mm Peripheral Glenoid Screw Xzx693 - [id number] Explanted:Qty : 1 on 10/03/2023 at [facility] Left: Shoulder [employer] [id number] / / Insurance MEDICARE FORMERLY [facility] MEDICARE FORMERLY [facility] [employer] Advance Directives For more information, please contact: [phone] * Full Code (Latest Code Status on File) Date Activated Date Inactivated Comments 01/07/2025 7:21 PM 01/08/2025 3:40 PM * Full Code Date Activated Date Inactivated Comments 10/31/2023 7:44 PM 11/05/2023 7:58 PM * Full Code Date Activated Date Inactivated Comments 10/03/2023 7:50 PM 10/04/2023 4:31 PM Care Teams Whiskey Filterer Relationship Specialty Start Date End Date Liliam Gregory MD [address] [facility] [address] [place] [address] PCP - General Family Practice 03/01/23
[2025-09-13 16:52] VITALS: BP 140/71; PULSE 96; RESP 18; O2SAT 100
[2025-09-13 17:53] VITALS: BP 142/75; PULSE 100; RESP 16; TEMP 36.6; O2SAT 100
== END 2025-09-13 17:56 | disposition home or self-care (01) ==
PROVIDERS: Nurse Practitioner Adult Health; Emergency Provider Emergency Medicine; PCP Family Medicine
DX: K25.9 Gastric ulcer, unspecified as acute or chronic, without hemorrhage or perforation (principal); I10 Essential (primary) hypertension; E78.5 Hyperlipidemia, unspecified
CPT/HCPCS: 36415; 74177; 80053; 81003; 83605; 83690; 85025; 85610; 85730; 96361; 96374; 99284; A9270; J2270; J7030; Q9967

== ENCOUNTER 2025-10-13 00:38 | Day surgery (SDC) | payer MEDICARE, SELFPAY ==
--- OUTSIDE RECORDS SUMMARY | 2024-03-25 08:58 | XMS_ITS | Continuity of Care Document ---
Author Organization [email or web address] [place] Address 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 Name Role Phone Dae Liz Unavailable Unavailable Procedures Procedure Date Therapeutic Activities Neuromuscular Re-Ed Therapeutic Exercise Therapeutic Activities Neuromuscular Re-Ed Therapeutic Exercise Therapeutic Activities Neuromuscular Re-Ed Therapeutic Exercise Therapeutic Activities Neuromuscular Re-Ed Therapeutic Exercise Therapeutic Activities Neuromuscular Re-Ed Therapeutic Exercise Doc neg elder mal no plan PT Evaluation Moderate Complexity Therapeutic Activities Neuromuscular Re-Ed Therapeutic Activities Therapeutic Exercise Manual Therapy Hot or Cold Pack Therapeutic Activities Hot or Cold Pack Therapeutic Exercise Doc neg elder mal no plan PT Evaluation Moderate Complexity Neuromuscular Re-Ed Therapeutic Activities Therapeutic Exercise Advance Directives Directive Yes / No Effective Date File Name No Information Encounters Encounter Description Practice Location Reason(s) For Visit Diagnoses Date Provider Providers Copied on Encounter [facility], [address], [place], [place], [id number], [place] [phone] [place] No Information May-0 8- 4 Muehl Dae. [address] [place] [address], [address], [place], [place], [facility], [place]. tel:[phone] [facility] [address], [place], [place], [id number], [place] tel:[phone] [place] No Information Mar-2 4 Muehl Dae. [address] [place] [address], [address], [place], [place], [facility], [place]. tel: [phone] Referring Provider: Ariel Pollard [address] [place] [address], [place], [place], [facility]. tel:[phone] [place], [place] [id number] [place], [place] [address], [place], [id number], [place] tel:[phone] [place] No Information Mar-0 6 4 Muehl Dae. [address] [place] [address], [address], [place], [place], [facility], [place]. tel: [phone] Referring Provider: Ariel Pollard [address] [place] [address], [place], [address]. tel:[phone] [place] [address] [place], [place] [address], [place], [id number], [place] tel:[phone] [place] No Information Mar-0 -202 4 Muehl Dae. [address] [place] [address], [address], [place], [place], [facility], [place]. tel:[phone] Referring Provider: Ariel Pollard [address] [place] [address], [place], [address]. tel:[phone] [place] [address], [address], [place], [place], [id number], [place] tel:[phone] [place] No Information Feb-2 6-202 4 Muehl Dae. [address] [place] [address], [address], [place], [address], [place]. tel: [phone] Referring Provider: Ariel Pollard [address], [place], [address]. tel:[phone] [place] [address], [id number], tel:[phone] [place] No Information 4 Muehl Dae. [address] [facility], [address], [place], [address], [place]. tel: [phone] Referring Provider: Ariel Pollard [address], [place], [address]. tel:[phone] [place] [address], [id number], [place] tel:[phone] [place] No Information 4 Muehl Dae. [address] [place] [address], [address], [place], [address], [place]. tel: [phone] Referring Provider: Ariel Pollard [address], [place], [address]. tel:[phone] [place] [address], [id number], [place] tel:[phone] [place] No Information 3 Muehl Dae. [address] [facility], [address], [place], [address], [place]. tel: [phone] Referring Provider: Ariel Pollard [address], [place], [address]. tel:[phone], [id number], [place] tel:[phone] [place] No Information 3 Muehl Dae. [address] [facility], [address], [place], [address], [place]. tel: [phone] Referring Provider: Ariel Pollard [facility], [place], [address]. tel:[phone] [employer] [place], [address] [facility] [address], [place], [place], [id number], [place] tel:[phone] [place] No Information 3 Destinee Pearl. [address] [facility], [address], [place], [address], [place]. tel: [phone] Referring Provider: Idris Gamble[address] [facility], [place], [address]. tel:[phone] Family History Family Member Type Diagnosis Age At Onset No Information Payers Payer name Insurance type Covered democrat ID Tasia duncan(s) Medicare [place] MB [id number] [facility] [id number] Social History Type Description Quantity Date Captured Comments Sex Male Smoking Status No Information Chief Complaint And Reason For Visit No Information Reason For Referral Reason For Referral No Information History Of Present Illness Encounter Date Complaint History Of Prese nt Illness No Information Functional Status Date Functional Assessmen t No Information Instructions Date Instruction Additional Infor mation Dietary needs education Related to Overweight Prescribed activity/exercise edu cation Related to Overweight Assessments Type Assessment Date No Information Patient Care Teams Name Effective Dates (start - stop) Status Members No Information
[2025-09-27 09:07] VITALS: BMI 28.3
[2025-10-13 10:41] VITALS: BP 134/81; PULSE 110; RESP 18; TEMP 36.6; O2SAT 99
[2025-10-13] MEDS: LACTATED RINGERS 1,000 ML 150 ML IV CONT (10:47)
--- NOTE | 2025-10-13 11:09 | WPDANESEPPF ---
Anes - Initial Pre Proc Eval Procedure: Operation Date: 10/13/25 12:30 Proposed Procedures p EGD & Diagnostic Colonoscopy - Humberto Alvarado MD Date/Time: 10/13/25 11:09 Surgeon: Humberto Alvarado MD Pre Op Diagnosis: Diverticulitis of intestine, part unspecified, wit Patient Data Age: 70 Gender: M Height: 1.68 m Weight: 76.7 kg Last Vital Signs Temp 36.6 C 10/13/25 10:41 Pulse 110 H 10/13/25 10:41 Resp 18 10/13/25 10:41 BP 134/81 10/13/25 10:41 Pulse Ox 99 10/13/25 10:41 O2 Del Method Room Air 10/13/25 10:41 Allergies Allergy/AdvReac Type Severity Reaction Status Date / Time No Known Allergies Allergy Verified 09/27/25 09:05 Home Medications ?Medication ?Instructions ?Recorded ?Confirmed ?Type ascorbate calcium (vitamin C) 500 500 mg PO DAILY 03/03/20 10/13/25 History mg tablet multivit,Ca,min-iron 8 mg-folic 1 tablet PO .QD 03/03/20 10/13/25 History acid 200 mcg-lycopene 600 mcg tablet (Centrum Men) potassium gluconate 595 mg (99 mg) 595 mg PO DAILY 03/03/20 10/13/25 History tablet vitamin B comp with C no.4 150 mg 1 tablet PO .QD 03/03/20 10/13/25 History tablet vitamin B12 500 mcg-folic acid 400 1 tablet PO DAILY 03/03/20 10/13/25 History mcg tablet lisinopril 20 See Rx Instructions .Route 08/23/25 10/13/25 Rx mg-hydrochlorothiazide 25 mg tablet .COMPLEX #90 tabs pantoprazole 40 mg tablet,delayed 40 mg PO BID #180 tabs 09/15/25 10/13/25 Rx release simvastatin 20 mg tablet 20 mg PO DAILY #90 tabs 09/15/25 10/13/25 Rx tramadol 50 mg tablet 50 mg PO BID PRN pain #60 tabs 10/01/25 10/13/25 Rx Patient hx anesthesia problems: none Family hx anesthesia problems: none Results Review: All pre-operative results and documents have been reviewed as part of the pre-operative evaluation. [facility] Past Medical History Medical History Hydrocele, right Normal colonoscopy (~04/24/18) Dr Hill, no polyps. Repeat in 10 yrs. Essential (primary) hypertension Mixed hyperlipidemia Surgical History Surgical History History of left knee replacement (~11/2017) History of left shoulder replacement (~10/03/23) Hx of cystoscopy (~03/2021) Social History Social History Social History: Single, lives alone. 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 Gender identity (if verbalized by the patient): Male Sexual Orientation (if Verbalized by the Patient): Straight or Heterosexual Spiritual care concerns: No Agree to blood products: Yes Anes - Eval Final PreProcedure Day of Procedure 10/13/25 11:09 Patient weight: overweight Heart: regular rate and rhythm Lungs: clear to auscultation Airway: Mallampati scale class II Neurological: alert and oriented Last oral intake: >/= 8 hours ASA classification: III Emergent: no Anesthetic plan: proceed Anesthesia type and monitoring: general GIVS and standard monitoring Results Review: All pre-operative results and documents have been reviewed as part of the pre-operative evaluation. Informed Consent: The patient's anesthetic plan and its attendant risks and benefits were discussed with the patient/family/POA. Questions were solicited and answers provided to the satisfaction of the patient/family/POA.
--- NOTE | 2025-10-13 11:41 | PM.HPGS ---
History of Present Illness History of Present Illness Consent: Risks, benefits, and alternatives have been discussed and questions answered. Patient agrees to proceed with procedure. Chief complaint: Diverticulitis of intestine, part unspecified, wit Narrative: Luis Armando Palma is a 70 year old male here for first egd, last colonoscopy 2019 with polyp. Recently with abdominal pain, ct scan showed possible chronic diverticulitis also gastric ulcer, this improved since started using ppi 1 month ago Review of Systems Review of Systems: All systems reviewed & are unremarkable except as noted in HPI and below PMFSH Past Medical History Medical History Hydrocele, right Normal colonoscopy (~04/24/18) Dr Hill, no polyps. Repeat in 10 yrs. Essential (primary) hypertension Mixed hyperlipidemia Surgical History Surgical History History of left knee replacement (~11/2017) History of left shoulder replacement (~10/03/23) Hx of cystoscopy (~03/2021) Social History Social History Social History: Single, lives alone. 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 Gender identity (if verbalized by the patient): Male Sexual Orientation (if Verbalized by the Patient): Straight or Heterosexual Spiritual care concerns: No Agree to blood products: Yes Meds Home Medications and Allergies Home Medications ?Medication ?Instructions ?Recorded ?Confirmed ?Type ascorbate calcium (vitamin C) 500 500 mg PO DAILY 03/03/20 10/13/25 History mg tablet multivit,Ca,min-iron 8 mg-folic 1 tablet PO .QD 03/03/20 10/13/25 History acid 200 mcg-lycopene 600 mcg tablet (Centrum Men) potassium gluconate 595 mg (99 mg) 595 mg PO DAILY 03/03/20 10/13/25 History tablet vitamin B comp with C no.4 150 mg 1 tablet PO .QD 03/03/20 10/13/25 History tablet vitamin B12 500 mcg-folic acid 400 1 tablet PO DAILY 03/03/20 10/13/25 History mcg tablet lisinopril 20 See Rx Instructions .Route 08/23/25 10/13/25 Rx mg-hydrochlorothiazide 25 mg tablet .COMPLEX #90 tabs pantoprazole 40 mg tablet,delayed 40 mg PO BID #180 tabs 09/15/25 10/13/25 Rx release simvastatin 20 mg tablet 20 mg PO DAILY #90 tabs 09/15/25 10/13/25 Rx tramadol 50 mg tablet 50 mg PO BID PRN pain #60 tabs 10/01/25 10/13/25 Rx Allergies Allergy/AdvReac Type Severity Reaction Status Date / Time No Known Allergies Allergy Verified 09/27/25 09:05 Vital Signs Vital Signs - 24 hr 10/13/25 10:41 Temperature 97.9 F Pulse Rate 110 H Respiratory Rate 18 Blood Pressure 134/81 Pulse Oximetry 99 Oxygen Delivery Room Air Exam Const: General: comfortable and no acute distress HENMT: Face/Nose/Sinus: Normal nares present Eyes: General: appearance normal, both eyes and all related structures Resp: Auscultation: clear to auscultation bilaterally Cardio: Rate: regular rate Rhythm: regular rhythm GI: Inspection: non-distended GI Palp: Yes Soft to palpation Skin: General skin exam: normal color Extrem: General: normal to inspection Psych: Mental Status: mental status grossly normal Assessment and Plan Assessment and plan (1) Diverticulitis: Code(s): K57.92 - Diverticulitis of intestine, part unspecified, without perforation or abscess without bleeding Status: Acute Assessment and Plan: colonoscopy (2) Gastric ulcer: Onset Date: ~08/2025 Qualifiers: Gastric ulcer chronicity: acute Gastric ulcer complication status: without hemorrhage or perforation Qualified Code(s): K25.3 - Acute gastric ulcer without hemorrhage or perforation Code(s): K25.9 - Gastric ulcer, unspecified as acute or chronic, without hemorrhage or perforation Status: Inactive Assessment and Plan: egd already on ppi and feeling better
[2025-10-13 12:06] VITALS: BP 140/75; PULSE 107; RESP 23; O2SAT 93
--- NOTE | 2025-10-13 12:06 | S_PTH ---
PATIENT: Luis Armando Palma LOC: [facility]#:[id number] AGE/SX: 70/M ROOM: RE10/13/[address]: Humberto Alvarado MD : [id number] BED: DIS: 10/13/2025 SPEC #: [id number] RECD: 10/13/25 12:49 STATUS: JULIO CESAR REKeaton #: [id number] ROBERTH: 10/13/25 12:[address]: Humberto Alvarado DEPT: [facility] Surgical RECD BY: Raghavendra Magallanes ENTERED: 10/13/25 12:49 SP TYPE: Surgical OTHR DR: Liliam Gregory MD Tissues: A - Duodenal Biopsy B - Gastric Biopsy Procedures: Hematoxylin and Eosin Stain Gross and Microscopic Level 4
--- NOTE | 2025-10-13 12:06 | SUR.OPER ---
EGD START 1146, END 1151 COLONOSCOPY START 1157, END 1205
[2025-10-13 12:16] VITALS: BP 120/68; PULSE 93; RESP 19; O2SAT 98
[2025-10-13 12:26] VITALS: BP 134/70; PULSE 88; RESP 24; O2SAT 99
== END 2025-10-13 12:39 | disposition home or self-care (01) ==
PROVIDERS: PCP Family Medicine; Referring Provider Nurse Practitioner Family; Visit Provider Internal Medicine Gastroenterology
PROC: 0DJ08ZZ Inspection of Upper Intestinal Tract, Via Natural or Artificial Opening Endoscopic (ICD-10-PCS; CPT 45378; principal; 2025-10-13 12:30)
DX: Z12.11 Encounter for screening for malignant neoplasm of colon (principal); R93.5 Abnormal findings on diagnostic imaging of other abdominal regions, including retroperitoneum; K64.8 Other hemorrhoids; K57.30 Diverticulosis of large intestine without perforation or abscess without bleeding; K26.9 Duodenal ulcer, unspecified as acute or chronic, without hemorrhage or perforation; K21.9 Gastro-esophageal reflux disease without esophagitis; I10 Essential (primary) hypertension; E78.2 Mixed hyperlipidemia; Z79.891 Long term (current) use of opiate analgesic; Z98.890 Other specified postprocedural states; Z86.0100 Personal history of colon polyps, unspecified; Z87.19 Personal history of other diseases of the digestive system
CPT/HCPCS: 43239; G0105; 88305; J2704; J7120